=== PATIENT | female | born 1990 | race Caucasian/White ===

== ENCOUNTER 2016-12-27 09:39 | Inpatient (IN) | payer BC, OTHER ==
[~2016-12-27] VITALS: Ht 152.4 cm; Wt 53.5 kg
[2016-12-27] MEDS ORDERED: ALBU2.5V38 IH (09:59)
[2016-12-27] MEDS ORDERED: SEVE800T8 PO (09:59)
[2016-12-27] MEDS ORDERED: DIPH25CA6 PO (09:59)
[2016-12-27] MEDS ORDERED: NIFE30TA89 PO (09:59)
[2016-12-27] MEDS ORDERED: LEVE500T9 PO (09:59)
[2016-12-27] MEDS ORDERED: FOLI1TAB16 PO (09:59)
[2016-12-27] MEDS ORDERED: FERR-58 PO (09:59)
[2016-12-27] MEDS ORDERED: RISP0.253 PO ×2 (09:59)
[2016-12-27] MEDS ORDERED: FOLI0.8T2 PO (09:59)
--- NOTE | 2016-12-27 10:00 | NUR ---
SECURITY SYSTEM TECHNICIANGELATIN POWDER MIXER NOTE RECEIVED REPORT FROM LEXIE MOBLEY FROM [facility]. PATIENT WAS IN ROOM 501-1 AND WILL BE ADMITTING TO 324-1 FOR SEPSIS. PATIENT IS ALERT x1. NON-VERBAL. NO FACIAL GRIMACING NOTED FOR PAIN. NO SOB OR DISTRESS NOTED. ON 3L/MIN OF OXYGEN VIA NASAL CANNULA O2 SAT AT 96% TOLERATING WELL. PATIENT HAS LEFT CHEST WALL HD CATH. HAD HEMODIALYSIS DONE YESTERDAY 12/26/16 HAD 1.6 OUTPUT. IV ON RIGHT SHOULDER, TO BE TAKEN OUT PER RN. NEW ONE TO BE INSERTED. SKIN ISSUES PRESENT AND DOCUMENTED. SCAB ON LEFT UPPER ARM, SACRAL REDNESS, RIGHT KNEE SCAB. WOULD CONSULT PUT IN. Z-GUARD ORDERED. RENAL DIET. NO BELONGINGS AT BEDSIDE. AWAITING FOR MD ORDERS, MED RECON TO BE DONE. WILL CONTINUE TO MONITOR PATIENT THROUGHOUT SHIFT
[2016-12-27] MEDS ORDERED: CEFT1VIA6 IM (10:01)
[2016-12-27 11:16] VITALS: BP 144/72
--- NOTE | 2016-12-27 12:24 | NUR ---
PORCELAIN MIXER NOTE IV INSERTED ON LEFT FOREARM 20G. INTACT AND PATENT, FLUSHES WELL.
[2016-12-27 16:00] VITALS: BP 143/105
--- NOTE | 2016-12-27 18:00 | NUR ---
DIRECTOR OF MARKETING COMMUNICATIONS NOTE ROCEPHIN NOT AVAILABLE TO GIVE AT THIS TIME. PHARMACY AWARE. WILL GIVE WHEN RECEIVED.
[2016-12-27 18:08] LABS: CALCIUM, SERUM 8.9 mg/dL (8.5-10.1)
[2016-12-27 18:10] LABS: BASOPHILS % (AUTO) 0.5 % (0.0-2.0); EOSINOPHILS # (AUTO) 0.4 /CMM (0.0-0.7); HEMATOCRIT 30 % (33-45); HEMOGLOBIN 10.2 g/dL (11.5-14.8); LYMPHOCYTES # (AUTO) 0.9 /CMM (0.8-4.8); MEAN CORPUSCULAR HEMOGLOBIN 31 PG (26.0-33.0); MEAN CORPUSCULAR HGB CONC 34 g/dl (31.0-36.0); MEAN CORPUSCULAR VOLUME 92 fL (82-100); MONOCYTES # (AUTO) 0.4 /CMM (0.1-1.30); MONOCYTES % (AUTO) 7.1 % (2.0-12.0); NEUTROPHILS # (AUTO) 4.1 /CMM (1.8-8.9); NEUTROPHILS % (AUTO) 70.4 % (43.0-81.0); PLATELET COUNT (AUTO) 107 /CMM (150-450); RDW COEFFICIENT OF VARIATION 15.7 (11.5-15.0); RED BLOOD CELL COUNT(AUTO) 3.28 MIL/uL (4.0-5.2); WHITE BLOOD COUNT (AUTO) 5.9 K/uL (4.3-11.0)
--- NOTE | 2016-12-27 18:42 | NUR ---
RADIOLOGY CLERK CLOSING NOTE PATIENT IS ALERT x1. NO FACIAL GRIMACING NOTED FOR PAIN. NO SOB OR DISTRESS NOTED. ON 3L/MIN OF OXYGEN VIA NASAL CANNULA. ALL DUE MEDICATIONS GIVEN ORDERED, IV ROCEPHIN NOT AVAILABLE AT THIS TIME. PHARMACY AWARE. NON-VERBAL. IV INTACT AND PATENT ON LEFT FOREARM. WOUND CONSULT TO BE DONE. AM LABS TOMORROW 12/28. ABLE TO FOLLOW COMMANDS. WILL ENDORSE TO HOT DOG VENDOR NURSE FOR [place]
[2016-12-27 20:00] VITALS: BP 156/98
--- NOTE | 2016-12-27 21:00 | NUR ---
PT ALERT, GARBLED SPEECH, UNABLE TO VERBALIZED NEEDS, BUT FOLLOW SIMPLE INSTRUCTION. PT IS MENTALLY CHALLENGE, IV LINE INTACT AND STARTED ANTIBIOTICS.SKIN INTACT EXCEPT FOR A SCAB TO RIGHT KNEE. BED ALARM ACTIVATED AT ALL TIMES.SINUS TACHY @ 96-110'S.KEPT ON OXYGEN 3 LITERS, NO DISTRESS,NO COUGHING BUT DROOLS THIN WHITE SECRETIONS, ASPIRATION OBSERVED, WILL CONTINUE TO MONITOR,KEPT ATTENDED AT ALL TIMES,VSS,AFEBRILE.
[2016-12-28 00:10] VITALS: BP 147/102
[2016-12-28 04:38] VITALS: BP 148/96
--- NOTE | 2016-12-28 05:40 | NUR ---
0520= PT BED ALARM WENT OFF, TECHNICAL SUPPORT ANALYSTBURAK Monk WENT TO ROOM TO RESPOND THE BED ALARM AND FOUND PT FALLING FROM THE BED WITH HER FACE ON THE FLOOR BUT THE LEGS STILL ON THE BED.NOTED THAT THE HEAD OF BED WAS ON HIGH FOWLERS. PT HAS MENTAL DELAY AND UNABLE TO VERBALIZE , PT JUST SMILE AND EVEN SAY IN GARBLED SPEECH "GOOD MORNING", NO BRUISING NOTED,NO BLEEDING IN THE HEAD,NO NEURO CHANGES BP 142/94 HR 106 SPO2 94% 2 LITERS.SINUS TACHY @ 122 DURING THE FALL EVENT. PAGED EPIC GROUP AND SPOKE TO DR. STAN CALDERÓN, NO ORDERS GIVEN EXCEPT TO CONTINUE TO MONITOR, PT IS TRANSFERED TO ROOM 311 WHERE THERE IS A SITTER AVAILABLE TO WATCH THE PT.TRY TO CALL MOTHER PAULA @ [phone] BUT VOICEMAIL IS FULL AND UNABLE TO LEAVE A MESSAGE.WILL CONTINUE TO MONITOR.
[2016-12-28 07:40] LABS: BASOPHILS # (AUTO) 0.1 /CMM (0.0-0.2); BASOPHILS % (AUTO) 1.2 % (0.0-2.0); EOSINOPHILS # (AUTO) 0.3 /CMM (0.0-0.7); EOSINOPHILS % (AUTO) 5.2 % (0.0-6.0); HEMATOCRIT 28 % (33-45); HEMOGLOBIN 9.4 g/dL (11.5-14.8); LYMPHOCYTES # (AUTO) 0.8 /CMM (0.8-4.8); LYMPHOCYTES % (AUTO) 15.3 % (20.0-44.0); MEAN CORPUSCULAR HEMOGLOBIN 31 PG (26.0-33.0); MEAN CORPUSCULAR HGB CONC 34 g/dl (31.0-36.0); MEAN CORPUSCULAR VOLUME 92 fL (82-100); MONOCYTES # (AUTO) 0.3 /CMM (0.1-1.30); MONOCYTES % (AUTO) 5.6 % (2.0-12.0); NEUTROPHILS # (AUTO) 3.7 /CMM (1.8-8.9); NEUTROPHILS % (AUTO) 72.7 % (43.0-81.0); PLATELET COUNT (AUTO) 122 /CMM (150-450); RDW COEFFICIENT OF VARIATION 15.4 (11.5-15.0); RED BLOOD CELL COUNT(AUTO) 3.03 MIL/uL (4.0-5.2); WHITE BLOOD COUNT (AUTO) 5.1 K/uL (4.3-11.0)
--- NOTE | 2016-12-28 07:45 | NUR ---
PROMOTIONAL DEMONSTRATOR: INITIAL NOTE RECEIVED PT A/OX1. NON VERBAL. USES FACIAL GRIMACING TO COMMUNICATE. NO PAIN NOTED. NO SOB NOTED. 3L NC SATING AT 96%. ANURIC AND USES DIAPER. BEDREST. HL #20 ON L FA, NO IV FLUIDS RUNNING. L CHEST PERMECATH. IS ON DIALYSIS AT THE MOMENT. SITE CLEAR AND PATENT. NO REDNESS, NO BLEEDING NOTED. RESTING COMFORTABLY IN BED. CALL LIGHT WITHIN REACH.
[2016-12-28 08:00] VITALS: BP 121/70
[2016-12-28 08:03] LABS: CALCIUM, SERUM 8.4 mg/dL (8.5-10.1); CREATININE 3.9 mg/dL (0.6-1.3); POTASSIUM 3.5 mmol/L (3.5-5.1)
--- NOTE | 2016-12-28 09:58 | NUR ---
DIALYSIS OUTPUT PER TECT IS 2L. VS STABLE. BP 139/93, PULSE 98, O2 100% ON 3 L NC.
--- NOTE | 2016-12-28 18:20 | NUR ---
MED SURGE RN: CLOSING NOTE PT A/OX1. USES GARBLED SPEECH. TELE D/C PER MD ORDER. TOOK ALL MEDICATIONS ON TIME. NO ADVERSE REACTIONS NOTED. NO PAIN NOTED. NO SOB NOTED. ON 2 L NC SATING AT 95%. BED REST BUT INDEPENDENT WITH BED MOBILITY. UNABLE TO AMBULATE WITH OUT ASSISTANCE. DIALYSIS OUTPUT AT 2L. TOLERATED WELL. HL ON L FA #20. AND L CHEST PERAMACTH. SITE CLEAR, NO REDNESS, AND DRESSING INTACT. NO IV FLUIDS RUNNING. WILL BE D/C TOMORROW IF CLEAR. RESTING COMFORTABLY IN BED. CALL LIGHT WITHIN REACH.
--- NOTE | 2016-12-28 19:30 | NUR ---
RN INITIAL NOTES: RECEIVED RPEORT FORM STEPHEN RN, PT IN BED, AWAKE, A/O X1 WITH GARBLED SPEECH, PT S/P HD TODAY WITH 2L OUTPUT. PT ON 3L VIA NC RESPIRATION EVEN AND UNLABORED, PER REPORT PT FELL LAST NIGHT, NOW WITH 1:1 SITTER AT BED SIDE. PT HAS LEFT FA IV ACCESS PATENT AND FLUSHING WELL, ON HL. BLE KEPT OFFLOADED. SAFETY PRECAUTIONS FOR FALL INITIATED CALL LIGHT IN REACH, WILL CONTINUE TO MONITOR
[2016-12-28 20:00] VITALS: BP 147/98
--- NOTE | 2016-12-28 21:50 | NUR ---
RN NOTES: ALECIA MEDS GIVEN ORDERED. NO ASPIRATION NOTED, PT ABLE TO SWALLOW WHOLE PILL WITH APPLE SAUCE.
--- NOTE | 2016-12-29 01:54 | NUR ---
RN NOTES: SEEN PT SLEEPING COMFORTABLY, NOT IN ANY DISTRESS, NO FACIAL GRIMACE NOTED, WILL CONTINUE TO MONITOR
--- NOTE | 2016-12-29 05:00 | NUR ---
rn notes: pt c/o pain but cannot state where the pain is, pt has no prn order for pain, contacted epic questioned documents examiner awaiting for call back
--- NOTE | 2016-12-29 05:30 | NUR ---
rn notes: placed second call for epic, pt still c/o pain, awaiting for call back
[2016-12-29 06:24] LABS: BASOPHILS % (AUTO) 0.6 % (0.0-2.0); EOSINOPHILS # (AUTO) 0.5 /CMM (0.0-0.7); EOSINOPHILS % (AUTO) 8.7 % (0.0-6.0); HEMATOCRIT 30 % (33-45); HEMOGLOBIN 10.2 g/dL (11.5-14.8); LYMPHOCYTES # (AUTO) 1.2 /CMM (0.8-4.8); LYMPHOCYTES % (AUTO) 22.4 % (20.0-44.0); MEAN CORPUSCULAR HEMOGLOBIN 32 PG (26.0-33.0); MEAN CORPUSCULAR HGB CONC 34 g/dl (31.0-36.0); MEAN CORPUSCULAR VOLUME 93 fL (82-100); MONOCYTES # (AUTO) 0.4 /CMM (0.1-1.30); MONOCYTES % (AUTO) 8.4 % (2.0-12.0); NEUTROPHILS # (AUTO) 3.2 /CMM (1.8-8.9); NEUTROPHILS % (AUTO) 59.9 % (43.0-81.0); PLATELET COUNT (AUTO) 152 /CMM (150-450); RDW COEFFICIENT OF VARIATION 15.1 (11.5-15.0); RED BLOOD CELL COUNT(AUTO) 3.23 MIL/uL (4.0-5.2); WHITE BLOOD COUNT (AUTO) 5.3 K/uL (4.3-11.0)
[2016-12-29 06:34] LABS: CALCIUM, SERUM 9.2 mg/dL (8.5-10.1); CREATININE 6.5 mg/dL (0.6-1.3); POTASSIUM 4.2 mmol/L (3.5-5.1)
--- NOTE | 2016-12-29 06:47 | NUR ---
RN CLOSING NOTES: PT IN BED, REMAINS A/O X1, WITH GARBLED SPEECH. ON 3L VIA NC RESPIRATION EVEN AND UNLABORED. LEFT FA IV ACCESS REMAINS PATENT AND FLUSHING WELL, ON HL. COVERED WITH ARM SLEEVE FOR PROTECTION. PT FOR POSSIBLE DC TODAY, EXIT CARE COMPLETED. VS REMAINS STABLE, NEEDS ATTENDED. SAFETY PRECAUTIONS FOR FALL REMAINS ENGAGED, CALL LIGHT IN REACH, WILL ENDORSE TO DAY RN FOR [place].
[2016-12-29 08:16] VITALS: BP 137/97
[2016-12-29 09:47] VITALS: BP 137/97
--- NOTE | 2016-12-29 15:45 | NUR ---
PT DISCHARGED HOME WITH MOTHER PAULA RN; ALL WRITTEN INSTRUCTIONS GIVEN AND EXPLAINED TO PATIENT'S MOTHER WHO IS HER MAIN CAREGIVER. VERBALIZED UNDERSTANDING. IV REMOVED; PT CLEANED AND FRESH CLOTHES GIVEN. TAKEN SAFELY OUT OF HOSPITAL VIA W/C.
[2017-01-01 07:42] LABS: BASOPHILS % (AUTO) 0.3 % (0.0-2.0); EOSINOPHILS # (AUTO) 0.3 /CMM (0.0-0.7); EOSINOPHILS % (AUTO) 5.3 % (0.0-6.0); HEMATOCRIT 26 % (33-45); HEMOGLOBIN 8.9 g/dL (11.5-14.8); LYMPHOCYTES # (AUTO) 1.2 /CMM (0.8-4.8); LYMPHOCYTES % (AUTO) 18.1 % (20.0-44.0); MEAN CORPUSCULAR HEMOGLOBIN 32 PG (26.0-33.0); MEAN CORPUSCULAR HGB CONC 35 g/dl (31.0-36.0); MEAN CORPUSCULAR VOLUME 93 fL (82-100); MONOCYTES # (AUTO) 0.4 /CMM (0.1-1.30); MONOCYTES % (AUTO) 6.5 % (2.0-12.0); NEUTROPHILS # (AUTO) 4.5 /CMM (1.8-8.9); NEUTROPHILS % (AUTO) 69.8 % (43.0-81.0); PLATELET COUNT (AUTO) 218 /CMM (150-450); RDW COEFFICIENT OF VARIATION 14.8 (11.5-15.0); RED BLOOD CELL COUNT(AUTO) 2.78 MIL/uL (4.0-5.2); WHITE BLOOD COUNT (AUTO) 6.5 K/uL (4.3-11.0)
[2017-01-01 07:56] LABS: CALCIUM, SERUM 8.5 mg/dL (8.5-10.1); CREATININE 6.7 mg/dL (0.6-1.3); PHOSPHORUS 5.6 mg/dL (2.5-4.9); POTASSIUM 4.7 mmol/L (3.5-5.1)
== END 2016-12-29 15:50 | disposition home or self-care (01) | DRG 193 ==
LOC: MED 09:39 → TELE 10:10 → MED 12-28 09:00
PROVIDERS: ADMIT Internal Medicine; ATTEND Internal Medicine
DX: J15.9 Unspecified bacterial pneumonia (principal); N18.6 End stage renal disease; G80.9 Cerebral palsy, unspecified; D64.9 Anemia, unspecified; F29 Unspecified psychosis not due to a substance or known physiological condition; F79 Unspecified intellectual disabilities; G40.909 Epilepsy, unspecified, not intractable, without status epilepticus; Z99.2 Dependence on renal dialysis
CPT/HCPCS: 36415; 80048-TC; 83735-TC; 84100-TC; 85025-TC; 87081-TC; 90935-TC; J0696; J7050; J7060; Q0163; Z7610

== ENCOUNTER 2016-12-30 11:15 | Inpatient (IN) | payer BC, OTHER ==
[~2016-12-30] VITALS: Ht 152.4 cm; Wt 54.4 kg
[~2016-12-30 11:15] MED LIST: ALBU2.5V38 IH; CEFT1VIA6 IM; DIPH25CA6 PO; FERR-58 PO; FOLI1TAB16 PO; LEVE500T9 PO; NIFE30TA89 PO; RISP0.253 PO; SEVE800T8 PO
--- NOTE | 2016-12-30 11:20 | NUR ---
PT BIB FRIEND TO ER BED 14. HERE FOR COUGH AND CONGESTION. WAS D/C YESTERDAY W/ DIAGNOSIS OF PNEUMONIA. PER FAMILY, PT IS STILL WEAK AND FEELS LIKE COUGH IS NOT RESOLVING. GOWNED AND PLACED ON MONITOR. HERRERA SAMUEL.
--- NOTE | 2016-12-30 11:43 | NUR ---
DR SILVERIO AT BEDSIDE FOR EVAL.
[2016-12-30] MEDS ORDERED: IV NS 0.9% 500 ML BAG IV ONE (12:00)
--- NOTE | 2016-12-30 12:00 | NUR ---
IV LINE STARTED BLOOD DRAWN AND SENT TO LAB.
[2016-12-30 12:10] LABS: BASOPHILS % (AUTO) 0.3 % (0.0-2.0); EOSINOPHILS # (AUTO) 0.3 /CMM (0.0-0.7); EOSINOPHILS % (AUTO) 3.4 % (0.0-6.0); HEMATOCRIT 30 % (33-45); HEMOGLOBIN 10.2 g/dL (11.5-14.8); LYMPHOCYTES % (AUTO) 9.9 % (20.0-44.0); MEAN CORPUSCULAR HEMOGLOBIN 31 PG (26.0-33.0); MEAN CORPUSCULAR HGB CONC 34 g/dl (31.0-36.0); MEAN CORPUSCULAR VOLUME 93 fL (82-100); MONOCYTES # (AUTO) 0.6 /CMM (0.1-1.30); MONOCYTES % (AUTO) 6.7 % (2.0-12.0); NEUTROPHILS # (AUTO) 7.7 /CMM (1.8-8.9); NEUTROPHILS % (AUTO) 79.7 % (43.0-81.0); PLATELET COUNT (AUTO) 216 /CMM (150-450); RDW COEFFICIENT OF VARIATION 14.6 (11.5-15.0); RED BLOOD CELL COUNT(AUTO) 3.26 MIL/uL (4.0-5.2); WHITE BLOOD COUNT (AUTO) 9.6 K/uL (4.3-11.0)
--- NOTE | 2016-12-30 12:11 | NUR ---
RADIOLOGY AT BEDSIDE FOR CHEST XRAY.
[2016-12-30 12:20] LABS: CALCIUM, SERUM 9.5 mg/dL (8.5-10.1); POTASSIUM 4.2 mmol/L (3.5-5.1)
[2016-12-30 12:27] LABS: CREATININE 8.5 mg/dL (0.6-1.3)
--- NOTE | 2016-12-30 13:36 | NUR ---
DR GRIFFIN AT BEDSIDE FOR EVAL.
--- NOTE | 2016-12-30 13:55 | NUR ---
CALLED [facility] [employer] APPLICATION SUPPORT SPECIALIST FOR BEDS , SHE SAID SHE WOULD CALL US BACK.
--- NOTE | 2016-12-30 14:11 | NUR ---
REPORT GIVEN TO TRAY. PT AWAOIITING TRANSFER TO FLOOR.
[2016-12-30] MEDS ORDERED: IV NS 0.9% 1,000 ML IV PRN (14:21)
[2016-12-30] MEDS ORDERED: ENOXAPARIN SODIUM 40 MG/0.4 ML DISP.SYRIN SQ SCH (14:30)
[2016-12-30] MEDS ORDERED: MAGNESIUM HYDROXIDE 30 ML UDC PO PRN (14:30)
[2016-12-30] MEDS ORDERED: ONDANSETRON HCL/PF 4 MG/2 ML VIAL IVP PRN (14:30)
[2016-12-30] MEDS: NIFEdipine XL (30MG) 30 MG TAB PO SCH (14:30)
[2016-12-30] MEDS ORDERED: MAG HYDROX/AL HYDROX/SIMETH 30 ML UDC PO PRN (14:30)
[2016-12-30 14:50] VITALS: BP 103/36
--- NOTE | 2016-12-30 15:00 | NUR ---
MS RN NOTES RECEIVED PATIENT ALERT ORIENTEDX2. NO SOB OR ACUTE DISTRESS NOTED. PATIENT IN BED RESTING. NOTED WITH COUGH. PATIENT AND FAMILY ORIENTED TO ROOM AND FLOOR. BED IN LOW LOCKED POSITION. CALL LIGHT WITHIN REACH. PERIPHERAL IV ON RIGHT AC INTACT, PATENT. SUBCLAVIAN ON LEFT UPPER CHEST INTACT. WILL CONTINUE TO MONITOR CLOSELY.
[2016-12-30] MEDS: FERROUS SULFATE (325 MG) 325 MG/TAB TABLET PO SCH (15:38)
[2016-12-30] MEDS: risperiDONE 0.25 MG TABLET PO SCH ×2 (15:39→18:00)
[2016-12-30] MEDS: diphenhydrAMINE HCL 25 MG CAPSULE PO SCH ×2 (15:39→21:19)
[2016-12-30] MEDS: FOLIC ACID 1 MG TABLET PO SCH (15:42)
[2016-12-30] MEDS ORDERED: FLU VACC QS 2017-18(36MOS+)/PF 0.5 ML DISP.SYRIN IM ONE ×2 (16:00→19:00)
--- NOTE | 2016-12-30 18:15 | NUR ---
MS RN NOTES PATIENT IN BED RESTING NO SOB OR ACUTE DISTRESS NOTED. ALL DUE MEDICATIONS ADMINISTERED. ALL NEEDS MET BED IN LOW LOCKED POSITION. HD CATH INTACT, PERIPHERAL IV INTACT PATENT WILL ENDORSE [place].
--- NOTE | 2016-12-30 18:30 | NUR ---
MS RN NOTES RISPERDAL NONE ADMINISTERED DUE TO GIVING 0.5MG DOSE 2 HOURS AGO.
[2016-12-30] MEDS: SEVELAMER CARBONATE 800 MG TABLET PO SCH (18:43)
--- NOTE | 2016-12-30 20:19 | NUR ---
MS RUSTY INITIAL NOTES' SEEN PT IN BED AWAKE AND ALERT WATCHING TV AT THIS TIME. CALMED AND QUIET FOLLOWED SIMPLE INSTRUCTION, HEPLOCK PATENT AND INTACT, HEMO DIALYSIS CATH ON LEFT UPPER CHEST WALL WITH DRESSING DRY . DENIES ANY PAIN OR ANY DISCOMFORT. NO SOB NOTED. RE-ORIENTED WHERE SHE AT . SITTER AT THE BEDSIDE FOR SAFETY. WILL CONTINUE MONITORING.
[2016-12-30] MEDS: LEVETIRACETAM (250 MG) 250 MG TABLET PO SCH (20:52)
[2016-12-30] MEDS: HEPARIN SODIUM, PORCINE 5000 UNITS/1 ML VIAL SQ SCH (20:56)
[2016-12-30] MEDS: Z GUARD REMEDY 2 OZ OINT TP PRN (21:00)
[2016-12-31] MEDS: Z GUARD REMEDY 2 OZ OINT TP PRN ×4 (01:30→21:56)
[2016-12-31] MEDS: ZOLPIDEM TARTRATE 5 MG TABLET PO PRN (01:39)
[2016-12-31] MEDS: ALBUTEROL FS 2.5 MG/3 ML VIAL.NEB IH PRN ×2 (05:38→22:39)
[2016-12-31 07:20] LABS: BASOPHILS % (AUTO) 0.3 % (0.0-2.0); EOSINOPHILS # (AUTO) 0.5 /CMM (0.0-0.7); EOSINOPHILS % (AUTO) 5.9 % (0.0-6.0); HEMATOCRIT 26 % (33-45); LYMPHOCYTES # (AUTO) 1.1 /CMM (0.8-4.8); LYMPHOCYTES % (AUTO) 14.2 % (20.0-44.0); MEAN CORPUSCULAR HEMOGLOBIN 32 PG (26.0-33.0); MEAN CORPUSCULAR HGB CONC 35 g/dl (31.0-36.0); MEAN CORPUSCULAR VOLUME 92 fL (82-100); MONOCYTES # (AUTO) 0.4 /CMM (0.1-1.30); MONOCYTES % (AUTO) 5.7 % (2.0-12.0); NEUTROPHILS # (AUTO) 5.8 /CMM (1.8-8.9); NEUTROPHILS % (AUTO) 73.9 % (43.0-81.0); PLATELET COUNT (AUTO) 205 /CMM (150-450); RDW COEFFICIENT OF VARIATION 14.6 (11.5-15.0); RED BLOOD CELL COUNT(AUTO) 2.85 MIL/uL (4.0-5.2); WHITE BLOOD COUNT (AUTO) 7.9 K/uL (4.3-11.0)
--- NOTE | 2016-12-31 07:30 | NUR ---
ORGAN TEACHER/CLOSING NOTES PT RESTING COMFORTABLY AFTER MORNING CARE DONE. ALL DUE MEDS GIVEN AND STABLE RAMY THE NIGHT. SLEPT WELL AFTER AMBIEN GIVEN ORDERED. NO SIGNS OF ANY ACUTE DISTRESS NOTED. WITH O2 AT 2 LITERS VIA NC. NO SOB NOTED AT THIS TIME. COUGH ONCE IN A WHILE. ON ASPIRATION PRECAUTION. SITTER AT THE BEDSIDE FOR SAFETY. ENDORSE TO AM NURSE WINTER FOR CONTINUITY OF CARE.
[2016-12-31 07:39] LABS: ALBUMIN 2.7 g/dL (3.4-5.0); BILIRUBIN,TOTAL 0.4 mg/dL (0.2-1.0); MAGNESIUM 2.4 mg/dL (1.8-2.4); PHOSPHORUS 6.4 mg/dL (2.5-4.9)
--- NOTE | 2016-12-31 07:40 | NUR ---
RECEIVED PT. IN AM ,QUIET,APPEARS COMFORTABLE.NO DISTRESS.SITTER AT BEDSIDE.IV IN PLACE.ALERT AND ORIENTED X1.
[2016-12-31 07:41] LABS: CREATININE 9.4 mg/dL (0.6-1.3)
[2016-12-31 07:46] LABS: THYROID STIMULATING HORMONE 5.639 uIU/mL (0.358-3.74)
[2016-12-31 08:00] VITALS: BP 159/89
[2016-12-31] MEDS: Z GUARD REMEDY 2 OZ OINT TP SCH (09:00)
--- NOTE | 2016-12-31 09:20 | NUR ---
ACTIVASE INSTILLED IN TO DIALYSIS CATH THIS AM WAS REPORTED CATH NOT FUNCTIONAL.THIS PROCEDURE PERFORMED BY MEDICAL OFFICE SUPERVISOR.
[2016-12-31] MEDS ORDERED: ALTEPLASE CATHFLO 2 MG/VIAL IV ONE (09:30)
[2016-12-31] MEDS: SEVELAMER CARBONATE 800 MG TABLET PO SCH ×3 (10:01→18:00)
[2016-12-31] MEDS: NIFEdipine XL (30MG) 30 MG TAB PO SCH (10:02)
[2016-12-31] MEDS: FOLIC ACID 1 MG TABLET PO SCH (10:02)
[2016-12-31] MEDS: FERROUS SULFATE (325 MG) 325 MG/TAB TABLET PO SCH (10:03)
[2016-12-31] MEDS: risperiDONE 0.25 MG TABLET PO SCH ×2 (10:03→18:00)
[2016-12-31] MEDS: LEVETIRACETAM (250 MG) 250 MG TABLET PO SCH ×2 (10:03→20:45)
[2016-12-31] MEDS: HYDROCODONE/APAP 5/325MG 1 EACH TABLET PO PRN (12:42)
--- NOTE | 2016-12-31 12:42 | NUR ---
LOOKING UNCOMFORTABLE-GIVEN ELZACO.
[2016-12-31] MEDS: HEPARIN SODIUM, PORCINE 5000 UNITS/1 ML VIAL SQ SCH ×2 (12:44→20:45)
[2016-12-31] MEDS ORDERED: LORAZEPAM 1 MG TABLET PO PRN (13:30)
--- NOTE | 2016-12-31 14:30 | NUR ---
DIALYSIS DONE,PRIOR TO THIS CONSENT RECEIVED FROM PT,S MOTHER.PT. TOLERATED DIALYSIS WELL.
[2016-12-31 16:00] VITALS: BP 134/72
--- NOTE | 2016-12-31 18:00 | NUR ---
PT. RAFAEL DIGGS. MEDS HELD.
[2016-12-31 20:00] VITALS: BP 133/89
--- NOTE | 2016-12-31 20:00 | NUR ---
MS RUSTY INITIAL NOTES GOT REPORT FROM AM NURSE MOY /RN AND CHECKED PT , SEEN IN BED AWAKE AND LIKED GETTING ANXIOUS AND SHE ALREADY PULLED OUT HER IV LINE , SPOKE TO HER AND FOUND OUT SHE WANTS SOMETHING TO EAT AND SHE SO HUNGRY. WARM UP HER DINNER AND SERVED IT TO HER . REPOSITION HER ON SITTING POSITION FOR ASPIRATION PRECAUTION. SITTER AT THE BEDSIDE FOR SAFETY AND ALSO HELPED THE PT TO EAT. WILL CONTINUE TO MONITOR.
[2016-12-31] MEDS: diphenhydrAMINE HCL 25 MG CAPSULE PO SCH (21:51)
[2017-01-01] MEDS: ZOLPIDEM TARTRATE 5 MG TABLET PO PRN (01:55)
[2017-01-01] MEDS: HYDROCODONE/APAP 5/325MG 1 EACH TABLET PO PRN (05:19)
[2017-01-01] MEDS: Z GUARD REMEDY 2 OZ OINT TP SCH (05:20)
[2017-01-01] MEDS: ALBUTEROL FS 2.5 MG/3 ML VIAL.NEB IH PRN ×2 (05:39→20:27)
--- NOTE | 2017-01-01 07:45 | NUR ---
TRUST ADMINISTRATOR/CLOSING NOTES PT RESTING AT THIS TIME AFTER NORCO TABLET GIVEN ORDERED AND FOR PT COMFORT TOO. SITTER AT THE BEDSIDE FOR SAFETY. STABLE RAMY THE NIGHT AND SLEPT WELL AFTER AMBIEN GIVEN. ALL DUE MEDS GIVEN AND ALL NEEDS MET. ENDORSE TO AM NURSE FOR CONTINUITY OF CARE.
[2017-01-01 08:00] VITALS: BP_SYST 135; BP_DIAS 60; BP_DIAS 99
[2017-01-01] MEDS: SEVELAMER CARBONATE 800 MG TABLET PO SCH ×3 (08:00→18:10)
--- NOTE | 2017-01-01 08:30 | NUR ---
MS RN RECEIVED ON BED, AWAKE,NOT IN ANY FORM OF DISTRESS, RESPIRATIONS EVEN AND UNLABORED,NO SOB NOTED, W/ SITTER AT BEDSIDE FOR SAFETY,ALL NEEDS ATTENDED.
--- NOTE | 2017-01-01 09:00 | NUR ---
MS LEXIE BREAKFAST SERVED,DUE HELD DUE TO PATIENT WILL HAVE HD TODAY, WILL GIVE LATER.
--- NOTE | 2017-01-01 12:00 | NUR ---
MS RN DUE MEDS HELD, PATIENT ON HD AT THIS TIME.
[2017-01-01] MEDS: FOLIC ACID 1 MG TABLET PO SCH (13:06)
[2017-01-01] MEDS: LEVETIRACETAM (250 MG) 250 MG TABLET PO SCH ×2 (13:07→21:27)
[2017-01-01] MEDS: risperiDONE 0.25 MG TABLET PO SCH ×2 (13:07→18:11)
[2017-01-01] MEDS: FERROUS SULFATE (325 MG) 325 MG/TAB TABLET PO SCH (13:07)
[2017-01-01] MEDS: NIFEdipine XL (30MG) 30 MG TAB PO SCH (13:08)
[2017-01-01] MEDS: HEPARIN SODIUM, PORCINE 5000 UNITS/1 ML VIAL SQ SCH ×2 (13:12→21:28)
--- NOTE | 2017-01-01 14:00 | NUR ---
MS SAFETY DEPOSIT BOXES CUSTODIAN DONE ,NO OUTPUT, ONLY CLEANING.
[2017-01-01 16:00] VITALS: BP 131/89
[2017-01-01] MEDS: LORAZEPAM 1 MG TABLET PO PRN (16:22)
--- NOTE | 2017-01-01 18:45 | NUR ---
MS RN ON BED, DUE MEDS GIVEN, NO DISTRESS NOTED.
--- NOTE | 2017-01-01 19:28 | NUR ---
MS RUSTY INITIAL NOTES RECEIVED REPORT FROM AM NURSE MALCOLM, SEEN PT SLEEPING AT THIS TIME, BREATHING EVEN AND UNLABORED, NOT IN ANY ACUTE DISTRESS NOTED. SKIN WARM AND DRY TO TOUCH, HEPLOCK STILL PATENT AND INTACT ON HER RIGHT HAND COVERED WITH KERLIX AND AV SHUNT ON HER LEFT UPPER CHEST DRESSING DRY AND INTACT. PT HAD DIALYSIS TODAY. KEPT HER WARM AND COMFORTABLE AT ALL TIMES. SITTER AT THE BEDSIDE FOR SAFETY. WILL CONTINUE TO MONITOR.
[2017-01-01 20:00] VITALS: BP 141/100
[2017-01-01] MEDS: diphenhydrAMINE HCL 25 MG CAPSULE PO SCH (21:27)
--- NOTE | 2017-01-01 22:00 | NUR ---
TRAILER TANK TRUCK DRIVER/NOTES NIGHT CARE BED ADMINISTERED BY SITTER , ROUTINE MEDS GIVEN ORDERED WITH SOME SNACKS. PT TOLERATED WELL. NO ASPIRATION NOTED. WILL CONTINUE TO MONITOR. PLACE CALL LIGHT AT REACH.
--- NOTE | 2017-01-02 | NUR ---
DOUGH MIXING MACHINE OPERATOR/NOTES PT SLEEPING AT THIS TIME WITHOUT ANY ACUTE DISCOMFORT NOTED, RESPIRATION EVEN AND NON-LABORED. KEPT HER WARM AND COMFORTABLE AT ALL TIME. SITTER AT THE BEDSIDE FOR SAFETY. WILL CONTINUE TO MONITOR.
[2017-01-02] MEDS: LORAZEPAM 1 MG TABLET PO PRN ×2 (04:07→19:57)
--- NOTE | 2017-01-02 04:07 | NUR ---
MANAGER OF PURCHASING/NOTES PT WOKE UP AND STARTED GETTING ANXIOUS, ATIVAN PO GIVEN WITH APPLE SAUCE ORDERED. PT ATE WELL , KEPT HER SAFE AT ALL TIMES. SITTER AT THE BEDSIDE.
--- NOTE | 2017-01-02 07:30 | NUR ---
MS RN AM NOTES RECEIVED IN BED, AWAKE,NOT IN ANY FORM OF DISTRESS, RESPIRATIONS EVEN AND UNLABORED,NO SOB NOTED, W/ SITTER AT BEDSIDE FOR SAFETY,RT HAND G24 IN PLACE FLUSHES WELL, SITE CLEAR, AV SHUNT KARLOS CHEST, SITE CLEAR, SEE NURSING FLOWSHEET FOR SKIN ISSUES. CALL LIGHT WITHIN REACG, SAFETY MEASURES IN PLACE. WILL CONT TO MONITOR,
--- NOTE | 2017-01-02 07:51 | NUR ---
MICA SPLITTER/CLOSING NOTES PT REMAINS SLEEPING AFTER ATIVAN GIVEN. NO SIGNS OF ANY ACUTE DISTRESS NOTED. RESPIRATION EVEN AND NON-LABORED, NO SIGNS OF ANY DISCOMFORT NOTED RAMY THE NIGHT. MORNING CARE DONE AND ALL DUE MEDS GIVEN . KEPT HER WARM AND COMFORTABLE AT ALL TIMES. ENDORSE TO AM NURSE FOR CONTINUITY OF CARE.
[2017-01-02 08:00] VITALS: BP 167/100
[2017-01-02] MEDS: FERROUS SULFATE (325 MG) 325 MG/TAB TABLET PO SCH (09:03)
[2017-01-02] MEDS: risperiDONE 0.25 MG TABLET PO SCH ×2 (09:03→17:22)
[2017-01-02] MEDS: FOLIC ACID 1 MG TABLET PO SCH (09:03)
[2017-01-02] MEDS: SEVELAMER CARBONATE 800 MG TABLET PO SCH ×3 (09:03→17:22)
[2017-01-02] MEDS: NIFEdipine XL (30MG) 30 MG TAB PO SCH (09:04)
[2017-01-02] MEDS: LEVETIRACETAM (250 MG) 250 MG TABLET PO SCH ×2 (09:10→21:34)
[2017-01-02] MEDS: HEPARIN SODIUM, PORCINE 5000 UNITS/1 ML VIAL SQ SCH ×2 (09:11→21:36)
[2017-01-02] MEDS: Z GUARD REMEDY 2 OZ OINT TP SCH (09:20)
--- NOTE | 2017-01-02 09:30 | NUR ---
MS RN NOTES ADMINISTERED DUE MEDS
[2017-01-02] MEDS: ALBUTEROL FS 2.5 MG/3 ML VIAL.NEB IH PRN (09:56)
[2017-01-02 10:02] LABS: BASOPHILS % (AUTO) 0.3 % (0.0-2.0); EOSINOPHILS # (AUTO) 0.3 /CMM (0.0-0.7); EOSINOPHILS % (AUTO) 3.9 % (0.0-6.0); HEMATOCRIT 26 % (33-45); HEMOGLOBIN 8.9 g/dL (11.5-14.8); LYMPHOCYTES % (AUTO) 14.6 % (20.0-44.0); MEAN CORPUSCULAR HEMOGLOBIN 31 PG (26.0-33.0); MEAN CORPUSCULAR HGB CONC 34 g/dl (31.0-36.0); MEAN CORPUSCULAR VOLUME 92 fL (82-100); MONOCYTES # (AUTO) 0.4 /CMM (0.1-1.30); MONOCYTES % (AUTO) 5.5 % (2.0-12.0); NEUTROPHILS # (AUTO) 5.1 /CMM (1.8-8.9); NEUTROPHILS % (AUTO) 75.7 % (43.0-81.0); PLATELET COUNT (AUTO) 245 /CMM (150-450); RDW COEFFICIENT OF VARIATION 14.3 (11.5-15.0); RED BLOOD CELL COUNT(AUTO) 2.86 MIL/uL (4.0-5.2); WHITE BLOOD COUNT (AUTO) 6.8 K/uL (4.3-11.0)
[2017-01-02 10:20] LABS: CALCIUM, SERUM 8.8 mg/dL (8.5-10.1); CREATININE 6.9 mg/dL (0.6-1.3); POTASSIUM 5.3 mmol/L (3.5-5.1)
[2017-01-02 16:00] VITALS: BP 143/96
[2017-01-02 18:00] VITALS: BP 143/96
--- NOTE | 2017-01-02 18:36 | NUR ---
MS RN CLOSING NOTES PT RESTING IN BED, AWAKE,NOT IN ANY FORM OF DISTRESS, RESPIRATIONS EVEN AND UNLABORED,NO SOB NOTED, W/ SITTER AT BEDSIDE FOR SAFETY,RT HAND G24 IN PLACE FLUSHES WELL, SITE CLEAR, AV SHUNT KARLOS CHEST, SITE CLEAR, PM CARE DONE, CALL LIGHT WITHIN REACH, SAFETY MEASURES IN PLACE. ALL NEEDS MET, NO OTHER SIGNIFICANT CHANGE IN CONDITION. WILL ENDORSE TO NEXT SHIFT FOR [place]. FOR HD TOMORROW PER DR. CHERELLE REYNOSO.
[2017-01-02 19:00] VITALS: BP 155/93
--- NOTE | 2017-01-02 19:53 | NUR ---
MS RN NOTES RECEIVED PATIENT LAYING IN BED, A & O X 2. SEEMS TO BE ANXIOUS, WILL GIVE PRN MEDS. ON 1:1 SITTER AT BEDSIDE FOR SAFETY. NO C/O PAIN, NO ACUTE DISTRESS NOTED. RESP EVEN & NON LABORED. IV ACCESS TO RIGHT HAND, HL. INTACT PATENT. AV SHUNT TO LEFT UPPER CHEST, DRESSING INTACT. BED IN LOW LOCKED POSITION. CALL LIGHT WITHIN REACH. MONITORING CLOSELY.
--- NOTE | 2017-01-02 19:57 | NUR ---
MS RN NOTES PATIENT NOTED TO BE ANXIOUS/RESTLESS IN BED. PRN ATIVAN GIVEN ORDERED. WILL REASSESS FOR EFFECTIVENESS. ON 1:1 SITTER AT BEDSIDE.
[2017-01-02] MEDS: diphenhydrAMINE HCL 25 MG CAPSULE PO SCH (21:34)
--- NOTE | 2017-01-02 22:00 | NUR ---
MS RN NOTES REASSESSED THE PATIENT FOR RESTLESSNESS, NOTED TO BE SLEEPING COMFORTABLY AT THIS TIME. SITTER AT BEDSIDE. MONITORING CLOSELY.
[2017-01-03] VITALS (15 sets, daily range): BP systolic 134–171; BP diastolic 55–110
[2017-01-03] MEDS: ALBUTEROL FS 2.5 MG/3 ML VIAL.NEB IH PRN ×3 (03:03→22:31)
--- NOTE | 2017-01-03 03:20 | NUR ---
MS RN NOTES PATIENT SLEEPING INTERMITTENTLY, ON O2 AT 2LPM VIA NC. HAD WHEEZING WHILE SLEEPING. RT MADE AWARE & PRN BREATHING TREATMENT WAS GIVEN ORDERED BY MD. WILL CONTINUE TO OBSERVE FOR ANY CHANGES.
[2017-01-03 06:23] LABS: BASOPHILS % (AUTO) 0.4 % (0.0-2.0); EOSINOPHILS # (AUTO) 0.3 /CMM (0.0-0.7); EOSINOPHILS % (AUTO) 3.3 % (0.0-6.0); HEMATOCRIT 23 % (33-45); HEMOGLOBIN 7.8 g/dL (11.5-14.8); LYMPHOCYTES # (AUTO) 1.1 /CMM (0.8-4.8); LYMPHOCYTES % (AUTO) 13.4 % (20.0-44.0); MEAN CORPUSCULAR HEMOGLOBIN 32 PG (26.0-33.0); MEAN CORPUSCULAR HGB CONC 34 g/dl (31.0-36.0); MEAN CORPUSCULAR VOLUME 93 fL (82-100); MONOCYTES # (AUTO) 0.4 /CMM (0.1-1.30); MONOCYTES % (AUTO) 5.2 % (2.0-12.0); NEUTROPHILS # (AUTO) 6.3 /CMM (1.8-8.9); NEUTROPHILS % (AUTO) 77.7 % (43.0-81.0); PLATELET COUNT (AUTO) 208 /CMM (150-450); RDW COEFFICIENT OF VARIATION 14.6 (11.5-15.0); RED BLOOD CELL COUNT(AUTO) 2.45 MIL/uL (4.0-5.2); WHITE BLOOD COUNT (AUTO) 8.1 K/uL (4.3-11.0)
[2017-01-03 06:42] LABS: CALCIUM, SERUM 8.8 mg/dL (8.5-10.1); MAGNESIUM 2.2 mg/dL (1.8-2.4); PHOSPHORUS 6.4 mg/dL (2.5-4.9); POTASSIUM 5.6 mmol/L (3.5-5.1)
--- NOTE | 2017-01-03 06:51 | NUR ---
MS RN NOTES PATIENT SLEPT INTERMITTENTLY. NO C/O PAIN, NO SOB, NO ACUTE DISTRESS OR DISCOMFORT NOTED. ON O2 AT 2LPM VIA NC. HOB ELEVATED FOR EASY BREATHING & COMFORT. IV ACCESS TO RIGHT HAND, AV SHUNT TO LEFT UPPER CHEST, INTACT PATENT. REPOSITIONED. KEPT CLEAN & DRY. ON BEDREST. 1:1 SITTER AT BEDSIDE FOR SAFETY. HD DUE TODAY. BE DIN LOW LOCKED POSITION. CALL LIGHT WITHIN REACH. WILL ENDORSE TO AM SHIFT.
--- NOTE | 2017-01-03 07:30 | NUR ---
RN NOTES PT.IS WITH 1:1 SITTER.
--- NOTE | 2017-01-03 07:30 | NUR ---
RN OPENING NOTES RECEIVE PT. IN BED A&OX3. BREATHING UNLABORED AND EVENLY ON ROOM AIR. NO S/S OF ACUTE DISTRESS. IV FLUIDS RUNNING AT 100 ML/HR. BED IS IN LOWEST LOCKED POSITION, 2 SIDE RAILS UP, AND INSTRUCTED PT. TO USE CALL LIGHT WITHIN REACH. WILL CONTINUE TO ASSESS AND MONITOR.
--- NOTE | 2017-01-03 07:30 | NUR ---
RN OPENING NOTES RECEIVE PT. IN BED A&OX2. BREATHING UNLABORED AND EVENLY ON OXYGEN AT 2L/MIN. NO S/S OF ACUTE DISTRESS. IV ACCESS ON RIGHT HAND , AND UPPER LEFT CHEST AV SHUNT. PT. IS RECEIVING HEMODIALYSIS. BED IS IN LOWEST LOCKED POSITION, 2 SIDE RAILS UP, AND INSTRUCTED PT. TO USE CALL LIGHT WITHIN REACH. WILL CONTINUE TO ASSESS AND MONITOR.
[2017-01-03 07:46] LABS: CREATININE 8.1 mg/dL (0.6-1.3)
[2017-01-03] MEDS: SEVELAMER CARBONATE 800 MG TABLET PO SCH ×3 (08:00→17:55)
--- NOTE | 2017-01-03 08:30 | NUR ---
RN NOTES CRITICAL LAB CALLED PT. CREATININE LEVEL IS 8.1, NOTIFIED ROSA MARIA CALL NP IS AWARE. PT. IS RECEIVING HEMODIALYSIS TODAY.
[2017-01-03] MEDS: HEPARIN SODIUM, PORCINE 5000 UNITS/1 ML VIAL SQ SCH ×2 (09:00→21:00)
[2017-01-03] MEDS: NIFEdipine XL (30MG) 30 MG TAB PO SCH (09:00)
[2017-01-03] MEDS: Z GUARD REMEDY 2 OZ OINT TP SCH (09:00)
[2017-01-03] MEDS: risperiDONE 0.25 MG TABLET PO SCH ×2 (12:23→17:55)
[2017-01-03] MEDS: FOLIC ACID 1 MG TABLET PO SCH (12:23)
[2017-01-03] MEDS: FERROUS SULFATE (325 MG) 325 MG/TAB TABLET PO SCH (12:24)
[2017-01-03] MEDS: LEVETIRACETAM (250 MG) 250 MG TABLET PO SCH ×2 (12:24→22:01)
--- NOTE | 2017-01-03 12:40 | NUR ---
RN NOTES PT. COULD NOT RECEIVE PROCARDIA, AND RENAGEL DUE TO MEDICATION COULD NOT BE CRUSHED OR CHEWED. PT. CAN TAKE PO MEDS ONLY CRUSHED.
--- NOTE | 2017-01-03 13:45 | NUR ---
RN NOTES RENAGEL MEDICATION COULD NOT BE ADMINISTERED DUE TO MEDICATION CANNOT BE CRUSHED.
[2017-01-03] MEDS: LORAZEPAM 1 MG TABLET PO PRN (15:55)
--- NOTE | 2017-01-03 16:45 | NUR ---
RN NOTES PT. STARTED HAVING A NOSE BLEED. AFTER 15 MINUTES NOSE BLEED WAS STOPPED WITH GAUZE.
[2017-01-03] MEDS: CLONIDINE HCL 0.1 MG TABLET GT PRN (17:55)
--- NOTE | 2017-01-03 18:45 | NUR ---
RN NOTES BLOOD TRANSFUSION VITAL SIGNS TEMP. 97.5 F, BP 140/103, PULSE 97, PULSE OXYGEN 95%.
--- NOTE | 2017-01-03 19:00 | NUR ---
RN NOTES BLOOD TRANSFUSION VITAL SIGNS TEMP. 98.4 F, BP 135/102, PULSE 93, PULSE OXYGEN 96%.
--- NOTE | 2017-01-03 19:30 | NUR ---
RN CLOSING NOTES PT. IN BED A&OX1-2. BREATHING UNLABORED AND EVENLY ON OXYGEN 2L/MIN ON COOL AEROSOL. NO S/S OF ACUTE DISTRESS. BLOOD TRANSFUSION RUNNING AT 120ML/HR. BED IS IN LOWEST LOCKED POSITION, 2 SIDE RAILS UP, AND CALL LIGHT WITHIN REACH. WILL ENDORSE REPORT TO NURSE.
--- NOTE | 2017-01-03 19:40 | NUR ---
RN INITIAL NOTES: RECEIVED REPORT FROM MARYANA OWEN,. PT IN BED, SLEEPING, A/O X1, ON 2L VIA NC RESPIRATION EVEN AND UNLABORED, PT HAS RIGHT FOOT IV ACCESS PATENT AND FLUSHING WELL, WITH ONGOING BLOOD TRANSFUSION RUNNING AT 120ML/HR, DECIDED TO DECREASE IT BECAUSE ITS TOO FAST PT IS A DIALYSIS PT, PRBC NOW RUNNING AT 80ML/HR, SITTER AT BED SIDE, PT CONNECTED TO VS MACHINE WITH VS CHECK [id number], BLOOD TRANSFUSION STARTED AT 1830 PER DAY RN REPORT. SAFETY PRECAUTIONS FOR FALL INITIATED CALL LIGHT IN REACH, WILL CONTINUE TO MONITOR.
--- NOTE | 2017-01-03 19:45 | NUR ---
RN NOTES: UNABLE TO DOCUMENT ON BLOOD TRANSFUSION PAGE/SHEET IT APPEARS "MAXIMUM DOCUMENTATION REACHED", DECIDED TO DOCUMENT THE VITAL SIGNS IN THE VITAL SIGN LOG (SHORT FORM). BLOOD TRANSFUSION PROTOCOL FOLLOWED, [id number] X1HR, [id number] X1HR, THEN [id number] X 1HR.
--- NOTE | 2017-01-03 19:45 | NUR ---
RN NOTES: UNABLE TO DOCUMENT ON BLOOD TRANSFUSION PAGE/SHEET IT APPERAS
--- NOTE | 2017-01-03 20:00 | NUR ---
RN NOTES: PT S/P HD TODAY WITH 1L OUTPUT
--- NOTE | 2017-01-03 20:35 | NUR ---
RN NOTES: STILL MONITORING PT FOR ANY BLOOD TRANSFUSION REACTION, INFORMED ENGRAVER SEALS REGARDING FLUCTUATIONS IN BP IT GOES HIGHER THEN GO BACK TO NORMAL RANGE, PT RECEIVED CATAPRESS AT 1755. WILL MONITOR PT'S VS.
--- NOTE | 2017-01-03 20:59 | NUR ---
RN NOTES: CONTACTED [facility], SPOKE WITH RICHARD BACA, INFORMED ABOUT PT RECEIVING BLOOD TRANSFUSION AT THIS TIME, PT WILL HAVE HEPARIN SQ 5000UNITS, H/H 7.11/19, INFORMED REGARDING PT HAVING NOSEBLEEDING DURING BREATHING TREATMENT, PER MD TO HOLD THE DOSE OF HEPARIN FOR TONIGHT, ALSO INFORMED THAT PT'S BLOOD PRESSURE FLUCTUATING, GOING 146/106 HIGHEST THEN WILL GO BACK DOWN TO NORMAL RANGE, PER RICHARD BACA TO CONTINUE MONITORING THE PT FOR NOW,
--- NOTE | 2017-01-03 21:30 | NUR ---
rn notes: BLOOD TRANSFUSION COMPLETED AT THIS TIME, IVF NS NOW RUNNING. VS TAKEN AND RECORDED, WILL CONTINEU MONITORING PT FOR ANY POST BLOOD TRANSFUSION REACTION.
--- NOTE | 2017-01-03 22:00 | NUR ---
RN NOTES: CONTACTED RT REGARDING DEEP SUCTIONING, PT NOTED TO HAVE SECRETIONS SEEMS TO BE UNABLE TO COUGH, SUCTIONED PT ORALLY BUT NOTHING OBTAINED, CALLED RT COLE
[2017-01-03] MEDS: diphenhydrAMINE HCL 25 MG CAPSULE PO SCH (22:01)
--- NOTE | 2017-01-03 22:30 | NUR ---
RN NOTES: RT COLE CAME TO DO DEEP SUCTIONING, ABLE TO SUCTION BLOOD SECRETIONS MODERATE IN AMOUNT, ALSO PER RT SINCE PT IS A MOUTH BREATHER IT WOULD BE BEST TO PLACE THE PT ON 6L VENTI MASK PT GETS SUFFOCATED ON 3L MASK OXYGEN,
--- NOTE | 2017-01-03 22:52 | NUR ---
RN NOTES: DUE MEDS GIVEN, STRICT ASPIRATION PRECAUTION FOLLOWED, PLACED PT ON HIGH MCKEON'S POSITION, CRUSHED MEDS WITH APPLE SAUCE, THEN PUT THICKENER ON PT'S JUICE, ABLE TO TAKE MEDICINE, NO ASPIRATION NOTED, WILL CONTINUE TO MONITOR
[2017-01-04] VITALS (8 sets, daily range): BP systolic 112–161; BP diastolic 70–104
[2017-01-04] MEDS: CLONIDINE HCL 0.1 MG TABLET GT PRN (04:06)
--- NOTE | 2017-01-04 04:07 | NUR ---
PRN CATAPRES: NOTED PT BP 161/104 HR 94 RR20 SPO2 97%, PRN CATAPRES 0.1 MG TAB, MED WAS CRUSHED AND PLACED IN APPLE SAUCE, ADMINISTERED TO THE PT AT THIS TIME, WILL CONTINUE TO MONITOR AND REASSESS
--- NOTE | 2017-01-04 06:47 | NUR ---
RN CLOSING NOTES: PT IN BED, AWAKE, REMAINS A/O X1, ON VENTI MASK 6L FIO2 28%, ON CONTINUOUS PULSE OX SATING 96%,NO FACIAL GRIMACE NOTED, APPEARS CALM AND COMFORTABLE, SITTER AT BED SIDE, RIGHT FOOT IV ACCESS REMAINS PATENT AND FLUSHING WELL, ON HL. BLE KEPT OFFLOADED. NO NOSE BLEEDING NOTED. HOWEVER WHEN DOING DEEP SUCTIONING, OBTAINED MODERATE AMOUNT OF BLOOD Y SECRETIONS, PT STILL UNABLE TO COUGH OUT PHLEGM. VS REMAINS STABLE, NEEDS ATTENDED, SAFETY PRECAUTIONS FOR FALL REMAINS ENGAGED, CALL LIGHT IN REACH, WILL ENDORSE TO DAY RN FOR [place].
--- NOTE | 2017-01-04 07:41 | NUR ---
MS/RN OPENING NOTE PATIENT RECEIVED IN BED IN STABLE CONDITION. A/O X 1. NOTED WITH VENTURI MASK WITH 6L AND FIO2 OF 28%. TOLERATING WELL. NO SIGNS OF ACUTE DISTRESS. NO COMPLAIN OF PAIN OR DISCOMFORT. ALL NEEDS ATTENDED TO. CALL LIGHT WITHIN REACH. WILL CONTINUE TO MONITOR TO ENSURE SAFETY.
[2017-01-04 07:59] LABS: BASOPHILS % (AUTO) 0.6 % (0.0-2.0); EOSINOPHILS # (AUTO) 0.3 /CMM (0.0-0.7); HEMATOCRIT 24 % (33-45); HEMOGLOBIN 8.1 g/dL (11.5-14.8); LYMPHOCYTES # (AUTO) 1.1 /CMM (0.8-4.8); LYMPHOCYTES % (AUTO) 16.8 % (20.0-44.0); MEAN CORPUSCULAR HEMOGLOBIN 31 PG (26.0-33.0); MEAN CORPUSCULAR HGB CONC 34 g/dl (31.0-36.0); MEAN CORPUSCULAR VOLUME 92 fL (82-100); MONOCYTES # (AUTO) 0.4 /CMM (0.1-1.30); MONOCYTES % (AUTO) 5.7 % (2.0-12.0); NEUTROPHILS # (AUTO) 4.9 /CMM (1.8-8.9); NEUTROPHILS % (AUTO) 72.9 % (43.0-81.0); PLATELET COUNT (AUTO) 202 /CMM (150-450); RDW COEFFICIENT OF VARIATION 14.4 (11.5-15.0); RED BLOOD CELL COUNT(AUTO) 2.61 MIL/uL (4.0-5.2); WHITE BLOOD COUNT (AUTO) 6.8 K/uL (4.3-11.0)
[2017-01-04] MEDS: SEVELAMER CARBONATE 0.8 GM POWD.PACK PO SCH ×2 (08:00→13:00)
[2017-01-04 08:09] LABS: CALCIUM, SERUM 8.5 mg/dL (8.5-10.1); POTASSIUM 5.6 mmol/L (3.5-5.1)
[2017-01-04 08:26] LABS: CREATININE 7.8 mg/dL (0.6-1.3)
[2017-01-04] MEDS: risperiDONE 0.25 MG TABLET PO SCH ×2 (08:51→17:38)
[2017-01-04] MEDS: LEVETIRACETAM (250 MG) 250 MG TABLET PO SCH ×2 (08:52→20:45)
[2017-01-04] MEDS: NIFEdipine XL (30MG) 30 MG TAB PO SCH (08:52)
[2017-01-04] MEDS: FERROUS SULFATE (325 MG) 325 MG/TAB TABLET PO SCH (08:52)
[2017-01-04] MEDS: FOLIC ACID 1 MG TABLET PO SCH (08:52)
[2017-01-04] MEDS: HEPARIN SODIUM, PORCINE 5000 UNITS/1 ML VIAL SQ SCH ×2 (08:53→20:47)
[2017-01-04] MEDS: ALBUTEROL FS 2.5 MG/3 ML VIAL.NEB IH PRN (08:56)
[2017-01-04] MEDS: Z GUARD REMEDY 2 OZ OINT TP SCH (09:14)
[2017-01-04] MEDS ORDERED: AZITHROMYCIN 500 MG in IV D5W 250 ML IV SCH (12:00)
[2017-01-04] MEDS ORDERED: SODIUM POLYSTYRENE SULFONATE 15 G/60 ML BOTTLE PO ONE (12:00)
[2017-01-04] MEDS ORDERED: HEPARIN SODIUM, PORCINE 1000 UNIT/1 ML VIAL IV ONE (13:00)
[2017-01-04] MEDS ORDERED: HEPARIN SODIUM, PORCINE 5000 UNITS/1 ML VIAL IV ONE (13:00)
[2017-01-04] MEDS ORDERED: HEPARIN SODIUM,PORCINE/PF 50 UNIT/5 ML DISP.SYRIN IV ONE (13:00)
[2017-01-04] MEDS ORDERED: HEPARIN-LOCK FLUSH PORCINE PF 100 UNITS/1 ML (10 ML)DISP.SYRIN IV ONE (13:00)
--- NOTE | 2017-01-04 13:29 | NUR ---
/RN RIGHT SIDE FEMORAL CATHETER PLACEMENT RIGHT SIDE FEMORAL HEMODIALYSIS CATHETER PLACEMENT DONE BY DR PEGUREO AT BEDSIDE. TOLERATED WELL. NO S/S OF BLEEDING NOTED. NO S/S OF PAIN OR DISCOMFORT AT THIS TIME. SITE KEPT CLEAN AND DRY AND COVERED WITH DRESSING. Addendum: 01/04/17 at 1345 by CRYSTAL ALMEIDA RN LEFT SIDE FEMORAL HEMODIALYSIS CATHETER NOT RIGHT SIDE.
[2017-01-04 14:16] LABS: INR 1.1 (0.87-1.13); PROTHROMBIN TIME 11.4 SECS (9.5-12.7)
[2017-01-04] MEDS: ALBUTEROL FS 2.5 MG/3 ML VIAL.NEB IH SCH ×2 (14:52→19:41)
[2017-01-04] MEDS: ACETYLCYSTEINE 10% SOLN 400 MG/4 ML VIAL NEB SCH (14:52)
[2017-01-04] MEDS: ACETAMINOPHEN 325 MG TABLET PO PRN (17:38)
--- NOTE | 2017-01-04 18:12 | NUR ---
MS/RN CLOSING NOTE PATIENT IN BED IN STABLE CONDITION. A/O X 1. NO SIGNS OF ACUTE DISTRESS. NO COMPLAIN OF PAIN OR DISCOMFORT. S/P HEMODIALYSIS, 2.5L OUT TOLERATED WELL. CONSENT FOR PLACEMENT OF DIALYSIS CATHETER TO RIGHT CHEST, LEFT VS RIGHT ARTERIAL AND VENOUS OBTAINED BY PAULA (MOTHER). ALL NEEDS ATTENDED TO. CALL LIGHT WITHIN REACH. SITTER AT BEDSIDE. WILL ENDORSE TO NEXT SHIFT FOR CONTINUITY OF CARE.
--- NOTE | 2017-01-04 19:20 | NUR ---
MS/JEWISH HISTORY PROFESSOR; RECEIVED PT 'S REPORTS FROM THE DAY SHIFT RN . AT THIS TIME. PT IN BED AWAKE TALKING BUT UNABLE TO UNDERSTAND. DAY SHIFT SITTER AT THE BEDSIDE. BREATHING NON LABORED. WITH O2 2L NC ON. WITH OLD HD CATH ON MINDI BUT NOT WORKING PER DAY SHIFT REPORT. PT WITH NEW HD CATH ON LT FEMORAL AREA INTACT. WITH HL ON RT FOOT INTACT AND PATENT. HOB AT 35 DEGREES. BED ON LOWER POSITION AND LOCKED FOR SAFETY. SIDE RAILS ARE UP FOR SAFETY. CALL LIGHT WITHIN REACH. PT IS CONFUSED TOO. WILL CONTINUE TO MONITOR. JEWELRY DEPARTMENT SUPERVISOR SITTER PRESENT.
--- NOTE | 2017-01-04 19:45 | NUR ---
MS/FELT HAT STEAMER; NOTED PT INCONTINENT OF BM SMALL AMOUNT SOFT GRAYISH/ BROWN . PERINEAL CARE DONE AND DIAPER CHANGED . REPOSITIONED.
--- NOTE | 2017-01-04 20:00 | NUR ---
MS?SEPHORA PRODUCT CONSULTANT; RT ADMINISTERED BREATHING TREATMENT TO THIS PT.
--- NOTE | 2017-01-04 20:45 | NUR ---
MS/CAR DETAILER; NOTED PT HAD ANOTHER BM MOD AMOUNT GRAYISH/BROWN. DEANNA ANAL CARE DONE AND DIAPER CHANGED. TURNED AND REPOSITIONED FOR COMFORT. Z GUARD CREAM APPLIED TO SACRAL REDNESS. STOOL SPECIMEN OBTAINED AND SENT TO LAB.
[2017-01-04] MEDS: diphenhydrAMINE HCL 25 MG CAPSULE PO SCH (21:27)
--- NOTE | 2017-01-04 21:30 | NUR ---
MS/CASH ACCOUNTANT; NOTED PT HAS BEEN SCRATCHING HER ABDOMEN.
--- NOTE | 2017-01-04 22:00 | NUR ---
MS/LVVN; AWAKE TURNED AND REPOSTIOED TO LT SIDE WITH PILLOWS SUPPORT TO HER BACK AND HEELS .
--- NOTE | 2017-01-04 22:15 | NUR ---
MS/FURNACE FIRER; PT AT THIS TIME SLEEPING REMAINED ON O2 2L NC ON. WILL CONTINUE TO MONITOR.
--- NOTE | 2017-01-04 23:00 | NUR ---
MS/INK PRINTER; STILL SLEEPING AT THIS TIME. WITH O2 3L NC ON. CONTINUE TO MONITOR.
[2017-01-05] VITALS (11 sets, daily range): BP systolic 118–143; BP diastolic 64–92
--- NOTE | 2017-01-05 | NUR ---
MS/CCIE; PT WOKE UP TURNED AND REPOSITIONED TO HER RT SIDE. HD CATH ON MINDI AND LT FEMORAL INTACT. RT CAME AND ADMINISTERED PT WITH BREATHING TREATMENT.
[2017-01-05] MEDS: ACETYLCYSTEINE 10% SOLN 400 MG/4 ML VIAL NEB SCH ×4 (00:02→23:05)
[2017-01-05] MEDS: ALBUTEROL FS 2.5 MG/3 ML VIAL.NEB IH SCH ×7 (00:02→23:05)
--- NOTE | 2017-01-05 01:20 | NUR ---
MS/CAMERA MAKER; PT WOKE UP C/O PAIN GENERALIZED. REPOSITIONED . TEMP. 98.4 ORALLY BP LA 129/89 MD 101 R 22 O2 SAT ON 2L NC 98 %.
[2017-01-05] MEDS: ACETAMINOPHEN 325 MG TABLET PO PRN (01:34)
--- NOTE | 2017-01-05 01:35 | NUR ---
MS/PLY BANDER; TYLENOL 650 MG PO Q6 PRN GIVEN CRUSHED WITH APPLE SAUCE ASPIRATION PRECAUTION OBSERVED. HOB ELEVATED AT ALL TIMES. WILL CONTINUE TO MONITOR.
--- NOTE | 2017-01-05 02:00 | NUR ---
MS/WELDER FITTER APPRENTICE; SLEEPING AT THIS TIME. HOB ELEVATED AT ALL TIMES 35 DEGREES.
--- NOTE | 2017-01-05 04:35 | NUR ---
MS/MANAGEMENT LIAISON; PT WOKE UP VERY AGITATED NOISY AND TRYING TO HIT ME WITH HER HANDS. BP ON LA 127/65 T 98.3 P 98 R 22 O2 SAT ON O2 2L NC 100 %. ATIVAN 1M PO Q8 PRN FOR AGITATION CRUSHED WITH APPLE SAUCE GIVEN ORDERED. WILL CONTINUE TO MONITOR.
[2017-01-05] MEDS: LORAZEPAM 1 MG TABLET PO PRN ×3 (04:38→22:00)
--- NOTE | 2017-01-05 05:45 | NUR ---
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 WITH O2 2L NC ON.
--- NOTE | 2017-01-05 06:31 | NUR ---
MS/LAP POLISHER; SLEPT FAIRLY LAST NIGHT. SUCTIONED ORALLY WITH SOME WHITISH SECRETIONS. MORNING CARE RENDERED. OLD HD ON MINDI AND NEW ONE WHICH IS TEMPORARY ON LT FEMORAL INTACT. COUGHING NOTED . HL ON RT FOOT INTACT. SITTER PRESENT IN THE ROOM AT ALL TIMES. PT BIT CALM AT THIS TIME. WILL CONTINUE TO MONITOR. WILL ENDORSE TO THE DAY SHIFT NURSE.
--- NOTE | 2017-01-05 07:25 | NUR ---
MS/RN OPENING NOTE PATIENT RECEIVED IN BED IN STABLE CONDITION. A/O X 1. NO SIGNS OF ACUTE DISTRESS. NO COMPLAIN OF PAIN OR DISCOMFORT. HOB ELEVATED FOR ASPIRATION PRECAUTION. ALL NEEDS ATTENDED TO. CALL LIGHT WITHIN REACH. SITTER AT BEDSIDE. WILL CONTINUE TO MONITOR TO ENSURE SAFETY.
[2017-01-05 08:13] LABS: BASOPHILS % (AUTO) 0.5 % (0.0-2.0); EOSINOPHILS # (AUTO) 0.2 /CMM (0.0-0.7); HEMATOCRIT 23 % (33-45); HEMOGLOBIN 7.7 g/dL (11.5-14.8); LYMPHOCYTES # (AUTO) 1.1 /CMM (0.8-4.8); MEAN CORPUSCULAR HEMOGLOBIN 32 PG (26.0-33.0); MEAN CORPUSCULAR HGB CONC 34 g/dl (31.0-36.0); MEAN CORPUSCULAR VOLUME 93 fL (82-100); MONOCYTES # (AUTO) 0.4 /CMM (0.1-1.30); MONOCYTES % (AUTO) 8.4 % (2.0-12.0); NEUTROPHILS # (AUTO) 3.3 /CMM (1.8-8.9); NEUTROPHILS % (AUTO) 66.1 % (43.0-81.0); PLATELET COUNT (AUTO) 191 /CMM (150-450); RDW COEFFICIENT OF VARIATION 14.3 (11.5-15.0); RED BLOOD CELL COUNT(AUTO) 2.43 MIL/uL (4.0-5.2); WHITE BLOOD COUNT (AUTO) 5.1 K/uL (4.3-11.0)
[2017-01-05 08:25] LABS: CALCIUM, SERUM 8.3 mg/dL (8.5-10.1); CREATININE 4.9 mg/dL (0.6-1.3); POTASSIUM 3.9 mmol/L (3.5-5.1)
[2017-01-05] MEDS: NIFEdipine XL (30MG) 30 MG TAB PO SCH (09:12)
[2017-01-05] MEDS: LEVETIRACETAM (250 MG) 250 MG TABLET PO SCH ×2 (09:12→20:58)
[2017-01-05] MEDS: FERROUS SULFATE (325 MG) 325 MG/TAB TABLET PO SCH (09:12)
[2017-01-05] MEDS: risperiDONE 0.25 MG TABLET PO SCH ×2 (09:12→17:32)
[2017-01-05] MEDS: FOLIC ACID 1 MG TABLET PO SCH (09:12)
[2017-01-05] MEDS: HEPARIN SODIUM, PORCINE 5000 UNITS/1 ML VIAL SQ SCH (09:13)
[2017-01-05] MEDS: Z GUARD REMEDY 2 OZ OINT TP SCH (09:14)
--- NOTE | 2017-01-05 11:20 | NUR ---
MS/RN SEEN BY ROSA MARIA CALL PATIENT SEEN BY ROSA MARIA CALL DECKHAND TUNA BOAT, ALSO MADE AWARE PATIENT BEING RESTLESS AND TRYING TO GET OUT OF BED WITH NEW ORDERS TO CHANGE ATIVAN 1MG PO FROM Q 8 HRS PRN TO Q 6 HRS PRN.
[2017-01-05] MEDS: AZITHROMYCIN 250 MG TABLET PO SCH (11:27)
--- NOTE | 2017-01-05 17:20 | NUR ---
MS/RN SEEN BY DR TORRE PATIENT SEEN BY DR TORRE WITH ORDERS TO TRANSFUSE 2 UNITS OF RBC. PATIENT CURRENTLY HAVING HEMODIALYSIS. PER MD TO TRANSFUSE WITH HD. CALLED BLOOD BANK AND MADE AWARE. IF NOT ABLE TO TRANSFUSE WITH HD BY THE TIME HD FINISHES. PLEASE TRANSFUSE WITHOUT HD. GIVE 1 UNIT, CHECK CBC AND IF NEEDED TRANSFUSE 1 UNIT EXTRA.
[2017-01-05] MEDS: PANTOPRAZOLE 40 MG VIAL IV SCH (17:32)
[2017-01-05] MEDS: SEVELAMER CARBONATE 0.8 GM POWD.PACK PO SCH (17:44)
--- NOTE | 2017-01-05 19:00 | NUR ---
MS/RN BLOOD TRANSFUSION SPOKE WITH KAREN FROM BLOOD BANK. PER KAREN THE BLOOD IS NOT READY YET AND SHE WILL GIVE A CALL WHEN ITS READY. WILL ENDORSE TO NEXT SHIFT.
--- NOTE | 2017-01-05 19:04 | NUR ---
MS/RN CLOSING NOTE PATIENT IN BED IN STABLE CONDITION. A/O X 1. NO SIGNS OF ACUTE DISTRESS. NO COMPLAIN OF PAIN OR DISCOMFORT. S/P HEMODIALYSIS. TOLERATED WELL. ALL NEEDS ATTENDED TO. CALL LIGHT WITHIN REACH. WILL ENDORSE TO NEXT SHIFT FOR CONTINUITY OF CARE AND WILL MAKE AWARE REGARDING BLOOD TRANSFUSION AND WILL RECEIVE CALL FROM KAREN FROM BLOOD BANK WHEN BLOOD IS READY TO BE PICKED UP.
--- NOTE | 2017-01-05 19:10 | NUR ---
MS/RN CONSENT EGD CONSENT FOR POSSIBLE EGD OBTAINED VIA TELEPHONE BY MOTHER PAULA [phone] WITNESSED BY MARYANA OWEN.
--- NOTE | 2017-01-05 19:35 | NUR ---
MS RN INITIAL NOTES PT IS IN BED AWAKE AND ALERT. SITTER AT BED SIDE. PT SOUNDS CONGESTED, CRACKLES IN LOWER LOBES. NO SOB NOTED. SPUTUM IN CANISTER IS DARK RED. BLOOD TRANSFUSION TO DONE. BED IS IN LOW AND LOCKED POSITION. WILL CONTINUE TO MONITOR PT
--- NOTE | 2017-01-05 20:23 | NUR ---
BLOOD TRANSFUSION BLOOD TRANSFUSION WAS BEGUN. INITIAL VITALS ARE BP- 118/79, P-102, T- 98.3, RR-18 WILL CONTINUE TO MONITOR PT
[2017-01-05] MEDS: diphenhydrAMINE HCL 25 MG CAPSULE PO SCH (22:00)
--- NOTE | 2017-01-05 22:00 | NUR ---
MS RN NOTES BENADRYL WAS HELD TO NOT MASK ANY S/S OF BLOOD TRANSFUSION REACTION.
--- NOTE | 2017-01-05 23:20 | NUR ---
BLOOD TRANSFUSION BLOOD TRANS WAS COMPLETED. VITALS WNL. H/H SCHEDULED FOR 19. WILL CONTINUE TO MONITOR
[2017-01-06] VITALS (7 sets, daily range): BP systolic 148–156; BP diastolic 65–93
--- NOTE | 2017-01-06 00:25 | NUR ---
H/H 9.07/26
[2017-01-06] MEDS: ACETYLCYSTEINE 10% SOLN 400 MG/4 ML VIAL NEB SCH ×5 (00:29→23:30)
[2017-01-06 00:50] LABS: HEMOGLOBIN 9.4 g/dL (11.5-14.8)
[2017-01-06] MEDS: ALBUTEROL FS 2.5 MG/3 ML VIAL.NEB IH SCH ×5 (03:20→20:10)
--- NOTE | 2017-01-06 06:40 | NUR ---
MS RN CLOSING NOTES PT IS IN BED RESTING WITH SITTER AT BEDSIDE. NO SIGNS OF SOB OR DISTRESS. ONE UNIT OF BLOOD TRANSFUSED. PT SLEPT THROUGHOUT THE NIGHT AFTER TRANSFUSION. SCHEDULED FOR HD CATH REPLACEMENT 01/06 @1130. WILL ENDORSE TO DAY SHIFT.
[2017-01-06 07:49] LABS: BASOPHILS % (AUTO) 0.4 % (0.0-2.0); EOSINOPHILS # (AUTO) 0.2 /CMM (0.0-0.7); EOSINOPHILS % (AUTO) 3.3 % (0.0-6.0); HEMATOCRIT 27 % (33-45); HEMOGLOBIN 9.2 g/dL (11.5-14.8); LYMPHOCYTES % (AUTO) 14.6 % (20.0-44.0); MEAN CORPUSCULAR HEMOGLOBIN 31 PG (26.0-33.0); MEAN CORPUSCULAR HGB CONC 34 g/dl (31.0-36.0); MEAN CORPUSCULAR VOLUME 92 fL (82-100); MONOCYTES # (AUTO) 0.5 /CMM (0.1-1.30); MONOCYTES % (AUTO) 7.4 % (2.0-12.0); NEUTROPHILS % (AUTO) 74.3 % (43.0-81.0); PLATELET COUNT (AUTO) 185 /CMM (150-450); RDW COEFFICIENT OF VARIATION 14.5 (11.5-15.0); RED BLOOD CELL COUNT(AUTO) 2.93 MIL/uL (4.0-5.2); WHITE BLOOD COUNT (AUTO) 6.8 K/uL (4.3-11.0)
[2017-01-06] MEDS: SEVELAMER CARBONATE 0.8 GM POWD.PACK PO SCH ×3 (08:00→18:00)
--- NOTE | 2017-01-06 08:00 | NUR ---
MS RN NOTES PATIENT IN BED RESTING WITH SITTER NO, SOB OR ACUTE DISTRESS NOTED. PATIENT NOTED CONGESTED AND COUGHING. PERIPHERAL IV ON RIGHT LEG, INTACT PATENT. BED IN LOW LOCKED POSITION. PATIENT NPO AWAITING SURGERY FOR HD SHUNT. WILL CONTINUE TO MONITOR CLOSELY .
[2017-01-06 08:04] LABS: ALBUMIN 2.7 g/dL (3.4-5.0); BILIRUBIN,TOTAL 0.6 mg/dL (0.2-1.0); CALCIUM, SERUM 8.6 mg/dL (8.5-10.1); CREATININE 6.4 mg/dL (0.6-1.3); MAGNESIUM 1.9 mg/dL (1.8-2.4); PHOSPHORUS 6.9 mg/dL (2.5-4.9); POTASSIUM 4.5 mmol/L (3.5-5.1)
[2017-01-06] MEDS: PANTOPRAZOLE 40 MG VIAL IV SCH ×2 (08:13→17:00)
[2017-01-06] MEDS: Z GUARD REMEDY 2 OZ OINT TP SCH (08:15)
[2017-01-06] MEDS: risperiDONE 0.25 MG TABLET PO SCH ×2 (09:00→18:00)
[2017-01-06] MEDS: FOLIC ACID 1 MG TABLET PO SCH (09:00)
[2017-01-06] MEDS: FERROUS SULFATE (325 MG) 325 MG/TAB TABLET PO SCH (09:00)
[2017-01-06] MEDS: NIFEdipine XL (30MG) 30 MG TAB PO SCH (09:00)
[2017-01-06] MEDS: LEVETIRACETAM (250 MG) 250 MG TABLET PO SCH ×2 (09:00→21:46)
[2017-01-06] MEDS: LORAZEPAM INJ 2 MG/ML VIAL IV PRN (09:12)
--- NOTE | 2017-01-06 10:00 | NUR ---
MS RN NOTES PATIENT SEEN AND EVALUATED BY ROSA MARIA CALL EVENT DECORATOR AND DESIGNER ORDERS NOTED AND CARRIED OUT.
[2017-01-06] MEDS: AZITHROMYCIN 250 MG TABLET PO SCH (12:00)
--- NOTE | 2017-01-06 14:15 | NUR ---
MS RN NOTES PATIENT TRANSFERRED TO OR IN STABLE CONDITION.
[2017-01-06] MEDS ORDERED: FENTANYL PF 100MCG/2ML AMPUL ONE (14:46)
[2017-01-06] MEDS ORDERED: LIDOCAINE 1% INJ 50 ML MDV IJ ONE (14:46)
[2017-01-06] MEDS ORDERED: HEPARIN SODIUM, PORCINE 1,000 UNIT/ML VIAL ONE ×3 (14:46→16:20)
[2017-01-06] MEDS ORDERED: CLINDAMYCIN 900 MG/6 ML VIAL ONE (15:28)
[2017-01-06] MEDS ORDERED: CELLULOSE,OXIDIZED 1 EA PACK MC ONE (17:32)
--- NOTE | 2017-01-06 18:30 | NUR ---
MS RN NOTES PATIENT RETURNED FROM OR IN STABLE CONDITION OPENS EYES TO NAME, VS WNL PATIENT ON OXYGEN AT 4 VIA NASAL CANNULA. WITH SURGICAL DRESSING ON RIGHT WRIST AND LEFT UPPER CHEST INTACT PATENT. PATIENT HAD A STAT CHEST XRAY IN OR AWAITING FOR RESULTS. WILL CONTINUE TO MONITOR CLOSELY.
--- NOTE | 2017-01-06 19:00 | NUR ---
MS RN NOTES PATIENT CHEST XRAY RESULTS NOTED, NOTIFIED PAGED ROSA MARIA CALL WITH RESULTS. ALSO INFORMED DR. DING OF RESULTS WAITING FOR CALL BACK FROM ROSA MARIA CALL.
--- NOTE | 2017-01-06 19:15 | NUR ---
MS RN NOTES PATIENT IN BED RESTING NO SOB OR ACUTE DISTRESS NOTED. VS 144/65 PULSE:87, RESPIRATION 20, TEMP: 97.4 HEART RATE 87. PATIENT SLEEPING EASILY AROUSABLE, OPENS EYES WHEN NAME IS CALLED. REPORT GIVEN TO SHRADDHA FOR [place]. AWAITING MDS CALL WITH FURTHER ORDERS.
--- NOTE | 2017-01-06 19:40 | NUR ---
MS RN NOTES RECEIVED RESTING COMFORTABLY ON BED,BREATHING NON LABORED,O2 SAT 97% ON 2L/NC.LEFT FOOT SALINE LOCK INTACT AND PATENT.S/P PLACEMENT OF PERMA CATH ON THE LEFT CHEST WALL.DRESSING INTACT AND DRY.S/P PLACEMENT ALSO RIGHT WRIST AV SHUNT,DRESSING INTACT AND DRY.WITH HD CATH VIA LEFT FEMORAL,WILL BE REMOVE TOMORROW.WITH ABNORMAL CHEST X-RAY RESULT,CAKE KNOCKER ROSA MARIA AWARE WITH ORDER FOR CT CHEST WITHOUT CONTRAST STAT,RADIOLOGY DEPT. AWARE.PATIENT WILL BE TRANSFER TO [facility] FOR FURTHER CARE AND MONITORING.
--- NOTE | 2017-01-06 19:45 | NUR ---
MS RN NOTES REPORT GIVEN TO NATHAN ARORA RN FOR [place].
--- NOTE | 2017-01-06 20:00 | NUR ---
NEED PT OR FAMILY CONSENT BEFORE CT SCAN.
--- NOTE | 2017-01-06 20:20 | NUR ---
MS RN NOTES SPOKE TO PAULA MOHAN,MOTHER,GIVEN CONSENT FOR CT CHEST WITH CONTRAST,WITNESSED BY GUERRA CHARGE NURSE
--- NOTE | 2017-01-06 20:45 | NUR ---
MS RN NOTES NEW SALINE LOCK PLACE ON LEFT AC #20 BY CHARGE NURSE MARI.
--- NOTE | 2017-01-06 20:50 | NUR ---
MS RN NOTES GOT ORDER FORM RICHARD MEJIA.PATIENT MAY HAVE HEMODIALYSIS IN THE MORNING TOMORROW.
[2017-01-06] MEDS ORDERED: IV NS 0.9% 250 ML IV ONE (20:52)
[2017-01-06] MEDS ORDERED: IOHEXOL-300 100 ML VIAL IV ONE (20:52)
--- NOTE | 2017-01-06 21:30 | NUR ---
[facility] RN INITIAL NOTE RECEIVED PT FROM RADIOLOGY. FAMILY AT BEDSIDE. PT NON VERBAL BUT ABLE TO MUMBLE WORDS. NO ACUTE DISTRESS NOTED. TRANSFERRED SAFELY TO PT'S ROOM. ON 3L OF O2 VIA NC AND SATURATING 97%. VS- BP 149/85, HR 97, R 20, T 97.5 AND NO C/O PAIN OR FACIAL GRIMACE NOTED AT THIS TIME. PT WITH NON PRODUCTIVE COUGH AND CONGESTION NOTED. AUSCULTATED HEART, LUNGS AND BOWEL SOUNDS. LUNG SOUNDS NOTED WITH CRACKLES IN UPPER LOBES AND DIMINISHED AT THE BASES. BOWEL SOUNDS ACTIVE IN ALL 4 QUADRANTS. TELE- SINUS RHYTHM 88. IV SITE LAC #20 CLEAN, PATENT AND FLUSHING WELL. LCW HD CATH CLEAN AND SECURED IN PLACE WITH CLEAN DRESSING. RIGHT FEMORAL CATH IN PLACE AND CLEAN. SITTER AT BEDSIDE FOR PT SAFETY. BED LOCKED IN PLACE AND IN LOWEST POSITION WITH CALL LIGHT WITHIN REACH. WILL CONTINUE TO MONITOR.
[2017-01-06] MEDS: diphenhydrAMINE HCL 25 MG CAPSULE PO SCH (21:45)
[2017-01-07] VITALS: BP 140/93
[2017-01-07] MEDS: ACETYLCYSTEINE 10% SOLN 400 MG/4 ML VIAL NEB SCH ×6 (00:29→23:30)
[2017-01-07] MEDS: ALBUTEROL FS 2.5 MG/3 ML VIAL.NEB IH SCH ×6 (00:29→20:23)
[2017-01-07] MEDS: LORAZEPAM INJ 2 MG/ML VIAL IV PRN ×3 (01:56→20:25)
[2017-01-07 04:00] VITALS: BP 146/93
[2017-01-07] MEDS: HYDROCODONE/APAP 5/325MG 1 EACH TABLET PO PRN (06:04)
--- NOTE | 2017-01-07 07:21 | NUR ---
[facility] RN CLOSING NOTE PT REMAINED STABLE DURING SHIFT. SITTER AT BEDSIDE. PT NOTED WITH EPISODES OF RESTLESSNESS AND TRYING TO PULL AT LINES. IV REINFORCED AND IN PLACE. LCW HD CATH CLEAN AND IN PLACE. ATIVAN 1MG/0.5ML IVP GIVEN AND PT REMAINED CALM, SAFE AND WENT BACK TO SLEEP. ALL SAFETY MEASURES IN PLACE. BED LOCKED IN PLACE AND IN LOWEST POSITION. FACIAL GRIMACE NOTED AND GAVE NORCO 5/325 FOR PAIN MANAGEMENT. CALL LIGHT WITHIN REACH AT ALL TIMES. WILL ENDORSE TO NEXT SHIFT FOR CONTINUITY OF CARE.
[2017-01-07 08:00] VITALS: BP 142/75
[2017-01-07] MEDS: PANTOPRAZOLE 40 MG VIAL IV SCH ×2 (09:57→16:26)
[2017-01-07] MEDS: NIFEdipine XL (30MG) 30 MG TAB PO SCH (09:58)
[2017-01-07] MEDS: risperiDONE 0.25 MG TABLET PO SCH ×2 (09:58→17:48)
[2017-01-07] MEDS: LEVETIRACETAM (250 MG) 250 MG TABLET PO SCH ×2 (09:58→21:56)
[2017-01-07] MEDS: Z GUARD REMEDY 2 OZ OINT TP SCH (09:58)
[2017-01-07] MEDS: FOLIC ACID 1 MG TABLET PO SCH (09:58)
[2017-01-07] MEDS: FERROUS SULFATE (325 MG) 325 MG/TAB TABLET PO SCH (09:58)
[2017-01-07] MEDS: SEVELAMER CARBONATE 0.8 GM POWD.PACK PO SCH ×3 (09:58→17:47)
[2017-01-07] MEDS: AZITHROMYCIN 250 MG TABLET PO SCH (11:30)
[2017-01-07 16:00] VITALS: BP 140/72
--- NOTE | 2017-01-07 18:50 | NUR ---
RN NOTE PT RESTING AT BED, EYES OPEN, NO ACUTE DISTRESS NOTED.ON 3L OF O2 VIA NC SATURATING WELL, NO PAIN OR FACIAL GRIMACE NOTED AT THIS TIME. SITTER AT BEDSIDE. IV SITE LAC #20 CLEAN, PATENT AND FLUSHING WELL. COVERED WITH DRESSING, PT TENDS TO PULL OUT IV SITES. LCW HD CATH CLEAN AND SECURED IN PLACE WITH CLEAN DRESSING. ALL DUE MEDS GIVEN, NEEDS ATTENDED AND MET. BED LOCKED IN PLACE AND IN LOWEST POSITION WITH CALL LIGHT WITHIN REACH.
--- NOTE | 2017-01-07 19:55 | NUR ---
RN INITIAL NOTES; PT ON THE BED WITHOUT ANY DISTRESS, PT IS AWAKE AND NON VERBAL. BREATHING EVEN AND UNLABORED ON 3 LPM VIA NC, LAC 20 G PERIPHERAL IV INTACT AND PATENT . LCW HD CATH AND RW AV SHUNT INTACT . INCONTINENT TO BOWEL AND ANURIC TO BLADDER . WITH 1;1 SITTER. BED IN THE LOWEST/LOCKED POSITION . SAFETY MEASURES APPLIED . WILL TURN AND REPOSITION Q2H AND NEEDED. WILL CONTINUE TO MONITOR .
[2017-01-07 20:00] VITALS: BP 140/76
--- NOTE | 2017-01-07 20:29 | NUR ---
RN NOTE; ATIVAN 1 MG IV GIVEN FOR AGITATION , TOLERATED WELL AT THIS TIME .WILL REASSESS.
[2017-01-07] MEDS: DIVALPROEX SODIUM 125 MG CAP.SPRINK PO SCH (21:56)
[2017-01-07] MEDS: diphenhydrAMINE HCL 25 MG CAPSULE PO SCH (21:57)
[2017-01-08] MEDS: ALBUTEROL FS 2.5 MG/3 ML VIAL.NEB IH SCH ×7 (00:07→23:00)
[2017-01-08] MEDS: ACETYLCYSTEINE 10% SOLN 400 MG/4 ML VIAL NEB SCH ×6 (00:07→23:00)
[2017-01-08 04:00] VITALS: BP 148/89
--- NOTE | 2017-01-08 06:50 | NUR ---
RN EOS NOTE; PT REMAINED STABLE DURING THE SHIFT, NO ANY DISTRESS NOTED. ALL PRESCRIBED MEDS TOLERATED WELL. TURNED AND REPOSITIONED Q2H AND NEEDED . TOTAL CARE RENDERED . WILL ENDORSE TO NEXT SHIFT RN FOR CONTINUITY OF CARE.
--- NOTE | 2017-01-08 07:29 | NUR ---
RN NOTES RECEIVED PT FROM INFORMATION CLERK CASHIER IN STABLE CONDITION, NONVERBAL, MUMBLES WORDS. SITTER AT BEDSIDE. L AC 20G IV SITE DRY AND INTACT, LCW PERMACATH IN PLACE, DRESSING PLACED.BED LOCKED AND IN LOWEST POSITION, CALL LIGHT WITHIN REACH, SIDE RAILS UPX3, WILL CONT TO MONITOR.
[2017-01-08 07:46] LABS: BASOPHILS % (AUTO) 0.6 % (0.0-2.0); EOSINOPHILS # (AUTO) 0.3 /CMM (0.0-0.7); EOSINOPHILS % (AUTO) 3.9 % (0.0-6.0); HEMATOCRIT 25 % (33-45); HEMOGLOBIN 8.4 g/dL (11.5-14.8); LYMPHOCYTES # (AUTO) 1.2 /CMM (0.8-4.8); LYMPHOCYTES % (AUTO) 17.6 % (20.0-44.0); MEAN CORPUSCULAR HEMOGLOBIN 31 PG (26.0-33.0); MEAN CORPUSCULAR HGB CONC 34 g/dl (31.0-36.0); MEAN CORPUSCULAR VOLUME 93 fL (82-100); MONOCYTES # (AUTO) 0.5 /CMM (0.1-1.30); MONOCYTES % (AUTO) 7.5 % (2.0-12.0); NEUTROPHILS # (AUTO) 4.6 /CMM (1.8-8.9); NEUTROPHILS % (AUTO) 70.4 % (43.0-81.0); PLATELET COUNT (AUTO) 194 /CMM (150-450); RDW COEFFICIENT OF VARIATION 14.9 (11.5-15.0); RED BLOOD CELL COUNT(AUTO) 2.68 MIL/uL (4.0-5.2); WHITE BLOOD COUNT (AUTO) 6.6 K/uL (4.3-11.0)
[2017-01-08 08:00] LABS: CALCIUM, SERUM 9.1 mg/dL (8.5-10.1); CREATININE 6.9 mg/dL (0.6-1.3); POTASSIUM 4.7 mmol/L (3.5-5.1)
[2017-01-08] MEDS: NIFEdipine XL (30MG) 30 MG TAB PO SCH (08:24)
[2017-01-08] MEDS: FERROUS SULFATE (325 MG) 325 MG/TAB TABLET PO SCH (08:24)
[2017-01-08] MEDS: PANTOPRAZOLE 40 MG VIAL IV SCH ×2 (08:24→17:34)
[2017-01-08] MEDS: SEVELAMER CARBONATE 0.8 GM POWD.PACK PO SCH ×3 (08:24→17:34)
[2017-01-08] MEDS: DIVALPROEX SODIUM 125 MG CAP.SPRINK PO SCH ×2 (08:24→21:31)
[2017-01-08] MEDS: Z GUARD REMEDY 2 OZ OINT TP SCH (08:25)
[2017-01-08] MEDS: FOLIC ACID 1 MG TABLET PO SCH (08:25)
[2017-01-08] MEDS: risperiDONE 0.25 MG TABLET PO SCH ×2 (08:25→17:35)
[2017-01-08] MEDS: LEVETIRACETAM (250 MG) 250 MG TABLET PO SCH ×2 (08:25→21:31)
--- NOTE | 2017-01-08 11:15 | NUR ---
RN NOTES PT EXTREMELY AGITATED, ATTEMPTING TO PULL OUT IV. ATIVAN GIVEN WILL CONT TO MONITOR.
[2017-01-08] MEDS: LORAZEPAM INJ 2 MG/ML VIAL IV PRN ×2 (11:21→17:34)
[2017-01-08] MEDS: AZITHROMYCIN 250 MG TABLET PO SCH (11:26)
[2017-01-08 16:00] VITALS: BP 134/81
--- NOTE | 2017-01-08 18:21 | NUR ---
RN NOTES PT RESTING IN BED WITH SITTER AT BEDSIDE. PT BEGAN PULLING AT IV SITE AGAIN AND BECOMING AGITATED, ATIVAN GIVEN. PT REMAINED IN STABLE CONDITION THROUGHOUT THE SHIFT, NO SIGNIFICANT CHANGES. BED LOCKED AND IN LOWEST POSITION, SIDE RAILS UPX3, BED ALARM ON. WILL ENDORSE TO ONCOMING SHIFT.
[2017-01-08 20:00] VITALS: BP 133/85
--- NOTE | 2017-01-08 20:00 | NUR ---
MS RN NOTES RECEIVED PTS ON BED AWAKE ALERT AND RESPONSIVE ,V/S STABLE AFEBRILE , ON 02 AT 3 LITERS VIA NC SATING 96%, NO SOB NO DISTRESS , BREATHING EVEN AND UNLABORED, WITH 1:1 SITTER AT BEDSIDE SECONDARY TO PULLING INVASIVE TUBING , WITH HD ACCESS ON L CHEST NO BLEEDING NOTED , AV SHUNT ON RIGHT ARM NOTED WITH BRUIT AND THRILL , HOB ELEVATED FOR ASPIRATION PRECAUTION NOTED CONGESTED BREATHING TREATMENT GIVEN BY RT.ALL NEEDS ATTENDED TOO CALL LIGHT WITHIN REACH, ALL DUE MEDS GIVEN ORDERED, KEPT PTS CLEAN DRY AND COMFORTABLE.WILL CONTINUE TO MONITOR -PTS.
[2017-01-08] MEDS: diphenhydrAMINE HCL 25 MG CAPSULE PO SCH (21:31)
--- NOTE | 2017-01-08 22:00 | NUR ---
MS RN NOTES PTS PULLED OUT IV LINE , REINSERTED WILL CONTINUE TO MONITOR PTS.SITTER AT BEDSIDE.
--- NOTE | 2017-01-09 | NUR ---
MS RN NOTES PTS IS SLEEPING COMFORTABLY.
--- NOTE | 2017-01-09 00:30 | NUR ---
MS RN NOTES RAPID INFLUENZA DONE , AWAITS RESULT.
--- NOTE | 2017-01-09 01:00 | NUR ---
MS RN NOTES RAPID INFLUENZA DONE WITH NEGATIVE RESULT.
[2017-01-09] MEDS: ALBUTEROL FS 2.5 MG/3 ML VIAL.NEB IH SCH ×6 (03:49→23:11)
[2017-01-09 04:00] VITALS: BP 149/86
[2017-01-09] MEDS: LORAZEPAM INJ 2 MG/ML VIAL IV PRN ×2 (05:02→19:26)
--- NOTE | 2017-01-09 07:32 | NUR ---
MS RN NOTES PTS ON BED AWAKE AND RESPONSIVE , WITH 1:1 SITTER , NO SOB NO DISTRESS NOTED , NO SIGNIFICANCE CHANGE NOTED , ENDORSE TO RN DAY SHIFT FOR CONTINUITY OF CARE.
[2017-01-09] MEDS: ACETYLCYSTEINE 10% SOLN 400 MG/4 ML VIAL NEB SCH ×4 (07:35→23:11)
[2017-01-09 08:00] VITALS: BP 163/97
--- NOTE | 2017-01-09 08:00 | NUR ---
MS RN NOTES RECEIVED PTS ON BED SLEEPING BUT AROUSAL BY CALLING HER NAME AND SHAKE HER STERNUM,V/S STABLE AFEBRILE , ON 02 AT 3 LITERS VIA NC SATING 92%,WITH SOB ,ON BREATHING TX AND LABORED RESPIRATION WITH 1:1 SITTER AT BEDSIDE SECONDARY TO PULLING INVASIVE TUBING , WITH HD ACCESS ON L CHEST NO BLEEDING NOTED , AV SHUNT ON RIGHT ARM NOTED WITH BRUIT AND THRILL , HOB ELEVATED FOR ASPIRATION PRECAUTION NOTED CONGESTED BREATHING TREATMENT GIVEN BY RT.ALL NEEDS ATTENDED TOO CALL LIGHT WITHIN REACH,KEPT PTS CLEAN DRY AND COMFORTABLE.WILL CONTINUE TO MONITOR CLOSELY
--- NOTE | 2017-01-09 09:00 | NUR ---
MS RN NOTE WITH CHEST CONGESTED ORAL SUCTION DONE BY RT, WILL CONT TO MONITOR CLOSELY
[2017-01-09] MEDS: risperiDONE 0.25 MG TABLET PO SCH ×2 (09:28→17:39)
[2017-01-09] MEDS: DIVALPROEX SODIUM 125 MG CAP.SPRINK PO SCH ×2 (09:28→21:00)
[2017-01-09] MEDS: LEVETIRACETAM (250 MG) 250 MG TABLET PO SCH ×2 (09:28→21:00)
[2017-01-09] MEDS: FOLIC ACID 1 MG TABLET PO SCH (09:28)
[2017-01-09] MEDS: FERROUS SULFATE (325 MG) 325 MG/TAB TABLET PO SCH (09:29)
[2017-01-09] MEDS: NIFEdipine XL (30MG) 30 MG TAB PO SCH (09:29)
[2017-01-09] MEDS: PANTOPRAZOLE 40 MG VIAL IV SCH ×2 (09:30→16:37)
[2017-01-09] MEDS: SEVELAMER CARBONATE 0.8 GM POWD.PACK PO SCH ×3 (09:32→17:39)
[2017-01-09] MEDS: Z GUARD REMEDY 2 OZ OINT TP SCH (09:40)
--- NOTE | 2017-01-09 10:21 | NUR ---
MS RN NOTE DR FRANKLIN AND ROSA MARIA RN COUNTER TOP MAKER AT BEDSIDE NOTIFIED THAT PATIENT STILL CONGESTED AND ON ASPIRATION PRECAUTION CLOSELY , ST AT BEDSIDE DOING SWALLOW EVAL ,STILL AT HIGH RISK FOR ASPIRATION , PER ROSA MARIA OK TO PLACE MID LINE ,WILL CONT TP MONITOR CLOSELY
--- NOTE | 2017-01-09 11:12 | NUR ---
MS RN NOTE ON HD AT THIS TIME ,WILL F\U
--- NOTE | 2017-01-09 13:17 | NUR ---
MS OWEN NOTE HD COMPLETED, 1L OF FLUIDS REMOVE, BP126/77 HR 106 Addendum: 01/09/17 at 1330 by FLORENCIO CABRERA RN MID LINE JOHN 18 BY GORGE ON LT UPPER ARM INSERTED ORDERED
[2017-01-09] MEDS: AZITHROMYCIN 250 MG TABLET PO SCH (13:19)
--- NOTE | 2017-01-09 13:52 | NUR ---
YUMIKO OWEN NOTE C\O ITCHINESS AND SCRATCHING HER BODY , CALLED ROSA MARIA OWEN DOG TRAINER WITH NEW ORDER BENADRYL 25 MG IVP PRN, ORDER CARRIED OUT
[2017-01-09] MEDS: diphenhydrAMINE HCL 50 MG/ML VIAL IV PRN (14:20)
[2017-01-09 16:35] VITALS: BP 115/86
--- NOTE | 2017-01-09 17:50 | NUR ---
MS RN NOTE HAVING DINNER , FED BY SCROLL ASSEMBLER WITH ASPIRATION PRECAUTION , WILL CONT TO F\U
--- NOTE | 2017-01-09 18:46 | NUR ---
MS RN NOTE WITH SITTER AT BEDSIDE,KEEP CLEAN DRY , STILL TRYING TO REMOVE ALL LINE ,OBSERVED CLOSELY ,
--- NOTE | 2017-01-09 19:30 | NUR ---
MS RN INITIAL NOTE PT RECEIVED IN BED WITH SITTER AT BEDSIDE. NON VERBAL BUT MUMBLES UNCLEAR WORDS. ON 3L OF O2 VIA NASAL CANNULA AND SATURATING 92-95%. BREATHING REGULAR, EVEN AND UNLABORED. NOTED WITH NON-PRODUCTIVE COUGH AND SOME CONGESTION. ALSO NOTED WITH RESTLESSNESS, PULLING AT LINES AND IRRITABLE BEHAVIOR. BED IN LOWEST POSITION AND LOCKED IN PLACE WITH BED ALARM ON. IV DEE MIDLINE IN PLACE, SECURED AND FLUSHING WELL. RFA AV FISTULA IN PLACE AND CLEAN. LCW HD CATH IN PLACE AND CLEAN. WILL CONTINUE TO MONITOR.
[2017-01-09 20:00] VITALS: BP 148/105
[2017-01-09] MEDS: diphenhydrAMINE HCL 25 MG CAPSULE PO SCH (21:00)
--- NOTE | 2017-01-09 21:30 | NUR ---
MS RN NOTE \ DR TORRE SAW PT WITH NEW ORDER EGD FOR TOMORROW AND NPO EXCEPT MEDS STARTING AT MIDNIGHT TONIGHT. CALLED MOM PAULA AND LEFT MESSAGE. WILL TRY AGAIN LATER.
[2017-01-10] VITALS (13 sets, daily range): BP systolic 126–165; BP diastolic 75–108
[2017-01-10] MEDS: diphenhydrAMINE HCL 50 MG/ML VIAL IV PRN ×2 (00:19→08:19)
[2017-01-10] MEDS: ALBUTEROL FS 2.5 MG/3 ML VIAL.NEB IH SCH ×6 (04:05→23:27)
[2017-01-10] MEDS: LORAZEPAM INJ 2 MG/ML VIAL IV PRN (06:07)
--- NOTE | 2017-01-10 06:55 | NUR ---
MS RN CLOSING NOTE PT REMAINED STABLE DURING SHIFT. NO ACUTE DISTRESS NOTED. NPO STATUS MAINTAINED EXCEPT MEDS AFTER MIDNIGHT. SITTER AT BEDSIDE THROUGHOUT THE NIGHT. ALL NEEDS ATTENDED TO AND MET PROMPTLY. KEPT CLEAN AND DRY. REPOSITIONED Q2H. SPOKE WITH MOTHER PAULA OVER THE PHONE AND OBTAINED CONSENT FOR EGD PROCEDURE WITH ANESTHESIA TODAY. NOTED WITH EPISODES OF RESTLESSNESS AND ITCHING/ SCRATCHING GAVE MEDICATIONS TO KEEP PT COMFORTABLE. WILL ENDORSE TO NEXT SHIFT FOR CONTINUITY OF CARE.
--- NOTE | 2017-01-10 07:30 | NUR ---
MS RN OPENING RECEIVED PATIENT A/OX1 NON VERBAL WILL OPEN EYES. PATIENT APPEARS IN NO ACUTE DISTRESS. NO S/S SOB, DIFFICULTY BREATHING AND FLACC 0 AT THIS TIME. ALL NEEDS IN REACH, PATIENT REPOSITIONED FOR INCREASED COMFORT. SITTER AT SIDE. WILL ROUND Q2H OR LESS PER NEEDS. BED LOWERED AND LOCKED, RAILS UPX3 FOR SAFETY AND BED ALARM ON.
[2017-01-10 07:43] LABS: BASOPHILS % (AUTO) 0.8 % (0.0-2.0); EOSINOPHILS # (AUTO) 0.2 /CMM (0.0-0.7); EOSINOPHILS % (AUTO) 3.9 % (0.0-6.0); HEMATOCRIT 22 % (33-45); HEMOGLOBIN 7.6 g/dL (11.5-14.8); LYMPHOCYTES % (AUTO) 18.3 % (20.0-44.0); MEAN CORPUSCULAR HEMOGLOBIN 32 PG (26.0-33.0); MEAN CORPUSCULAR HGB CONC 35 g/dl (31.0-36.0); MEAN CORPUSCULAR VOLUME 93 fL (82-100); MONOCYTES # (AUTO) 0.4 /CMM (0.1-1.30); MONOCYTES % (AUTO) 7.8 % (2.0-12.0); NEUTROPHILS # (AUTO) 3.8 /CMM (1.8-8.9); NEUTROPHILS % (AUTO) 69.2 % (43.0-81.0); PLATELET COUNT (AUTO) 164 /CMM (150-450); RDW COEFFICIENT OF VARIATION 14.2 (11.5-15.0); RED BLOOD CELL COUNT(AUTO) 2.38 MIL/uL (4.0-5.2); WHITE BLOOD COUNT (AUTO) 5.5 K/uL (4.3-11.0)
[2017-01-10 07:51] LABS: CREATININE 5.5 mg/dL (0.6-1.3); POTASSIUM 4.3 mmol/L (3.5-5.1)
[2017-01-10] MEDS: ACETYLCYSTEINE 10% SOLN 400 MG/4 ML VIAL NEB SCH ×3 (07:51→23:27)
[2017-01-10] MEDS: SEVELAMER CARBONATE 0.8 GM POWD.PACK PO SCH ×3 (08:00→18:28)
[2017-01-10] MEDS: PANTOPRAZOLE 40 MG VIAL IV SCH ×2 (08:18→16:42)
[2017-01-10] MEDS: risperiDONE 0.25 MG TABLET PO SCH ×2 (08:19→18:28)
[2017-01-10] MEDS: FOLIC ACID 1 MG TABLET PO SCH (08:19)
[2017-01-10] MEDS: FERROUS SULFATE (325 MG) 325 MG/TAB TABLET PO SCH (08:19)
[2017-01-10] MEDS: DIVALPROEX SODIUM 125 MG CAP.SPRINK PO SCH ×2 (08:20→21:56)
[2017-01-10] MEDS: LEVETIRACETAM (250 MG) 250 MG TABLET PO SCH ×2 (08:20→21:56)
[2017-01-10] MEDS: NIFEdipine XL (30MG) 30 MG TAB PO SCH (08:24)
[2017-01-10] MEDS: CLONIDINE HCL 0.1 MG TABLET GT PRN (08:25)
[2017-01-10] MEDS: Z GUARD REMEDY 2 OZ OINT TP SCH (08:26)
[2017-01-10] MEDS: VIT B CMPLX 3/FA/VIT C/BIOTIN 1 TAB TABLET PO SCH (08:33)
[2017-01-10] MEDS: AZITHROMYCIN 250 MG TABLET PO SCH (12:26)
[2017-01-10] MEDS: Z GUARD REMEDY 2 OZ OINT TP PRN ×2 (12:30→16:45)
--- NOTE | 2017-01-10 13:47 | NUR ---
MS RN NOTES LEFT MESSAGE TO DR TORRE OFFICE TO CONFIRM IF PATIENT NEEDING BLOOD TRANSFUSION PRIOR TO EGD. CALLED LAB AND PER BLOOD BACK BLOOD WILL NOT BE READY FOR ABOUT ANOTHER 2 HOURS
[2017-01-10] MEDS ORDERED: ANESTHESIA TRAY IN PYXIS 1 EA TRAY MC ONE (15:48)
--- NOTE | 2017-01-10 17:13 | NUR ---
MS RN NOTES PATIENT TAKEN DOWN FOR EGD IN STABLE CONDITION
--- NOTE | 2017-01-10 18:19 | NUR ---
MS RN NOTES CALLED BLOOD BANK I HAVE NOT GOTTEN A CALL BLOOD IS REDY. PER LAB BLOOD IS READY FOR TURBINE OPERATOR. PATIENT STILL AWAY IN SURGICAL UNIT FOR EGD.
--- NOTE | 2017-01-10 18:30 | NUR ---
MS RN NOTES RECEIVED PATIENT FROM SURGICAL UNIT STABLE CONDITION. VS STABLE SITTER AT SIDE
--- NOTE | 2017-01-10 18:54 | NUR ---
MS RN CLOSING PATIENT STABLE. ALL DUE MEDS GIVEN AND ALL NEEDS MET. SITTER AT SIDE. BED LOWERED AND LOCKED, RAILS UPX 3 FOR SAFETY AND BED ALARM ON. WILL ENDORSE CARE TO RN FOR [place]
[2017-01-10] MEDS ORDERED: METOCLOPRAMIDE HCL 10 MG/2 ML VIAL IV ONE (19:00)
--- NOTE | 2017-01-10 19:10 | NUR ---
RN OPENING NOTES RECEIVED REPORT FROM AM RN. PATIENT SLEEPING IN BED. A/O X1, RESPONSIVE TO VERBAL & TACTILE STIMULI. VERBAL BUT MUMBLES WORDS & UNABLE TO MAKE NEEDS KNOWN. BREATHING EVEN & UNLABORED, ON O2 3L VIA NC. PULSES PRESENT. LEFT CHEST WALL PERMACATH INTACT W/ DRESSING CDI. LEFT UPPER ARM MIDLINE #18 INTACT W/ DRESSING CDI, ON SALINE LOCK. NO S/S OF PAIN OR DISCOMFORT @ THIS TIME. SAFETY MEASURES IN PLACE W/ SIDE RAILS UP, BED LOCKED IN LOWEST POSITION & SITTER @ BEDSIDE. WILL CONTINUE TO MONITOR FOR CHANGES.
--- NOTE | 2017-01-10 20:22 | NUR ---
RN NOTES 1 UNIT PRBC TRANSFUSION STARTED. NO INITIAL REACTIONS NOTED. WILL CONTINUE TO MONITOR.
[2017-01-10] MEDS: diphenhydrAMINE HCL 25 MG CAPSULE PO SCH (21:56)
--- NOTE | 2017-01-10 23:12 | NUR ---
RN NOTES 1 UNIT PRBC TRANSFUSION COMPLETED W/ NO ADVERSE REACTIONS NOTED. PATIENT TOLERATED WELL.
[2017-01-11] MEDS: CLONIDINE HCL 0.1 MG TABLET GT PRN (02:36)
[2017-01-11] MEDS: LORAZEPAM INJ 2 MG/ML VIAL IV PRN ×3 (02:46→22:43)
[2017-01-11] MEDS: ALBUTEROL FS 2.5 MG/3 ML VIAL.NEB IH SCH ×5 (03:00→20:17)
[2017-01-11 04:00] VITALS: BP 152/78
[2017-01-11 04:44] VITALS: BP 152/78
--- NOTE | 2017-01-11 07:10 | NUR ---
RN OPENING NOTE REPORT REC'VD FROM NANCY BENNETT. PT SLEEPING. AROUSABLE CONFUSED SITTER PULLING AT LINES. 4 LNC 98% NON LABORED RESP. MINDI HD CATH DERSG CDI. LUE MIDLINE. RFA AV SHUNT. HD SCHEDULED FOR TODAY. EPOGEN SCHEDULED FOR TODAY. PRBC GIVEN BY NANCY RN +GUIAC EGD DONE YESTERDAY. BED IN LOW LOCKED POSITION. SIDE RAILS X 3. WILL CONT TO MONITOR CLOSELY.
[2017-01-11] MEDS: ACETYLCYSTEINE 10% SOLN 400 MG/4 ML VIAL NEB SCH ×2 (07:46→15:01)
[2017-01-11 07:50] LABS: BASOPHILS # (AUTO) 0.1 /CMM (0.0-0.2); EOSINOPHILS # (AUTO) 0.3 /CMM (0.0-0.7); EOSINOPHILS % (AUTO) 5.4 % (0.0-6.0); HEMATOCRIT 24 % (33-45); HEMOGLOBIN 8.5 g/dL (11.5-14.8); LYMPHOCYTES # (AUTO) 0.9 /CMM (0.8-4.8); LYMPHOCYTES % (AUTO) 14.3 % (20.0-44.0); MEAN CORPUSCULAR HEMOGLOBIN 32 PG (26.0-33.0); MEAN CORPUSCULAR HGB CONC 35 g/dl (31.0-36.0); MEAN CORPUSCULAR VOLUME 93 fL (82-100); MONOCYTES # (AUTO) 0.4 /CMM (0.1-1.30); MONOCYTES % (AUTO) 6.1 % (2.0-12.0); NEUTROPHILS # (AUTO) 4.8 /CMM (1.8-8.9); NEUTROPHILS % (AUTO) 73.2 % (43.0-81.0); PLATELET COUNT (AUTO) 150 /CMM (150-450); RED BLOOD CELL COUNT(AUTO) 2.62 MIL/uL (4.0-5.2); WHITE BLOOD COUNT (AUTO) 6.5 K/uL (4.3-11.0)
[2017-01-11 08:00] VITALS: BP 147/88
[2017-01-11 08:19] LABS: CREATININE 7.1 mg/dL (0.6-1.3); POTASSIUM 4.6 mmol/L (3.5-5.1)
[2017-01-11] MEDS: SEVELAMER CARBONATE 0.8 GM POWD.PACK PO SCH ×3 (08:53→17:10)
[2017-01-11] MEDS: PANTOPRAZOLE 40 MG VIAL IV SCH ×2 (08:53→17:10)
[2017-01-11] MEDS: VIT B CMPLX 3/FA/VIT C/BIOTIN 1 TAB TABLET PO SCH (08:54)
[2017-01-11] MEDS: DIVALPROEX SODIUM 125 MG CAP.SPRINK PO SCH ×2 (08:54→22:11)
[2017-01-11] MEDS: FOLIC ACID 1 MG TABLET PO SCH (08:54)
[2017-01-11] MEDS: LEVETIRACETAM (250 MG) 250 MG TABLET PO SCH ×2 (08:54→22:10)
[2017-01-11] MEDS: NIFEdipine XL (30MG) 30 MG TAB PO SCH (08:54)
[2017-01-11] MEDS: FERROUS SULFATE (325 MG) 325 MG/TAB TABLET PO SCH (08:54)
[2017-01-11] MEDS: risperiDONE 0.25 MG TABLET PO SCH ×2 (08:54→18:26)
--- NOTE | 2017-01-11 08:56 | NUR ---
PT MISSING WRISTBAND. HAS BLOOD ID BAND. WILL REQUEST WRISTBAND. MANUAL MED ADMINISTRATION.
[2017-01-11] MEDS: AZITHROMYCIN 250 MG TABLET PO SCH (09:00)
[2017-01-11] MEDS: Z GUARD REMEDY 2 OZ OINT TP SCH (09:03)
[2017-01-11] MEDS ORDERED: EPOETIN ALFA (10,000 UNIT) 10,000 UNIT/ML VIAL SQ ONE (10:30)
--- NOTE | 2017-01-11 11:58 | NUR ---
RN NOTES PT SLEEPING. DIALYSIS SCHEDULED FOR TODAY. MOM AT BEDSIDE. ANSWERED QUESTIONS.
[2017-01-11 16:00] VITALS: BP 137/93
[2017-01-11 17:11] VITALS: BP 137/93
--- NOTE | 2017-01-11 18:00 | NUR ---
RN CLOSING NOTES SITTER AT BEDSIDE. PT RESTING COMFORTABLY. NON LABORED RESP. WILL ENDORSE TO NOC RN.
--- NOTE | 2017-01-11 19:40 | NUR ---
MS RN NOTE RECEIVED PATIENT FROM DAY SHIFT, PATIENT IS ALERT AND ORIENTEDX1, MUMBLES WORDS, NO S/S OF RESPIRATORY DISTRESS OR PAIN AT THIS TIME. MIDLINE ON LEFT ARM IS PATENT AND INTACT. 1:1 SITTER PRESENT FOR SAFETY AND OBSERVATION. SRX2, BED IN LOW POSITION, CALL LIGHT WITHIN REACH, WILL CONTINUE TO MONITOR PATIENT.
[2017-01-11 20:00] VITALS: BP 126/83
[2017-01-11] MEDS: diphenhydrAMINE HCL 25 MG CAPSULE PO SCH (22:10)
--- NOTE | 2017-01-11 22:45 | NUR ---
AUDIO VISUAL COLLECTIONS COORDINATOR NOTE PATIENT LOOKS ANXIOUS, TRIED TO PULL OUT HD CATHETER ON HER CHEST WALL. ATIVAN 1MG IVP GIVEN. WILL MONITOR EFFECTIVENESS.
[2017-01-12] MEDS: ALBUTEROL FS 2.5 MG/3 ML VIAL.NEB IH SCH ×7 (00:06→23:47)
[2017-01-12] MEDS: ACETYLCYSTEINE 10% SOLN 400 MG/4 ML VIAL NEB SCH ×4 (00:06→23:48)
[2017-01-12 04:00] VITALS: BP 147/92
--- NOTE | 2017-01-12 06:40 | NUR ---
MS OWEN NOTE PATIENT IS RESTING IN BED COMFORTABLY, NON-LABORED BREATHING AND NO FACIAL GRIMACE NOTED. MORNING CARE RENDERED, ALL DUE MEDS GIVEN. WILL ENDORSE TO DAY SHIFT NURSE FOR [place]. Addendum: 01/12/17 at 0641 by AMEENA HUNT RN MS OWEN NOTE
[2017-01-12] MEDS: SEVELAMER CARBONATE 0.8 GM POWD.PACK PO SCH ×3 (07:55→17:18)
[2017-01-12] MEDS: LORAZEPAM INJ 2 MG/ML VIAL IV PRN ×3 (07:56→20:29)
[2017-01-12 08:00] VITALS: BP 118/86
[2017-01-12] MEDS: PANTOPRAZOLE 40 MG VIAL IV SCH ×2 (08:00→17:17)
--- NOTE | 2017-01-12 08:00 | NUR ---
RN NOTE PATIENT IS ALERT AND ORIENTEDX1, NO S/S OF RESPIRATORY DISTRESS OR PAIN AT THIS TIME. MIDLINE ON LEFT ARM IS PATENT AND INTACT. 1:1 SITTER PRESENT FOR SAFETY AND OBSERVATION. SRX2, BED IN LOW POSITION, CALL LIGHT WITHIN REACH, WILL CONTINUE TO MONITOR PATIENT.
[2017-01-12] MEDS: VIT B CMPLX 3/FA/VIT C/BIOTIN 1 TAB TABLET PO SCH (08:01)
[2017-01-12] MEDS: FERROUS SULFATE (325 MG) 325 MG/TAB TABLET PO SCH (08:01)
[2017-01-12] MEDS: LEVETIRACETAM (250 MG) 250 MG TABLET PO SCH ×2 (08:02→21:33)
[2017-01-12] MEDS: DIVALPROEX SODIUM 125 MG CAP.SPRINK PO SCH ×2 (08:02→21:33)
[2017-01-12] MEDS: FOLIC ACID 1 MG TABLET PO SCH (08:02)
[2017-01-12] MEDS: NIFEdipine XL (30MG) 30 MG TAB PO SCH (08:06)
[2017-01-12] MEDS: risperiDONE 0.25 MG TABLET PO SCH ×2 (08:11→17:17)
[2017-01-12] MEDS: Z GUARD REMEDY 2 OZ OINT TP SCH (08:13)
--- NOTE | 2017-01-12 11:00 | NUR ---
RN NOTES PATIENT SEEN AND EVALUATED BY JACKLYN CALL. ORDERS NOTED AND CARRIED OUT.
[2017-01-12] MEDS: AZITHROMYCIN 250 MG TABLET PO SCH (12:09)
[2017-01-12 16:00] VITALS: BP 119/93
--- NOTE | 2017-01-12 18:40 | NUR ---
RN NOTES PATIENT IN BED RESTING COMFORTABLE NO SOB OR ACUTE DISTRESS NOTED. ALL DUE MEDICATIONS ADMINISTERED. ALL NEEDS MET. PATIENT WITH SITTER AT BEDSIDE. WILL ENDORSE [place] TO PM SHIFT.
[2017-01-12 20:00] VITALS: BP 143/96
[2017-01-12] MEDS: diphenhydrAMINE HCL 25 MG CAPSULE PO SCH (21:33)
[2017-01-13 04:00] VITALS: BP 148/89
[2017-01-13] MEDS: ALBUTEROL FS 2.5 MG/3 ML VIAL.NEB IH SCH ×6 (04:09→23:30)
[2017-01-13] MEDS: ACETYLCYSTEINE 10% SOLN 400 MG/4 ML VIAL NEB SCH ×3 (07:35→23:30)
[2017-01-13 07:53] LABS: BASOPHILS # (AUTO) 0.1 /CMM (0.0-0.2); EOSINOPHILS # (AUTO) 0.3 /CMM (0.0-0.7); HEMATOCRIT 24 % (33-45); HEMOGLOBIN 8.4 g/dL (11.5-14.8); LYMPHOCYTES % (AUTO) 18.6 % (20.0-44.0); MEAN CORPUSCULAR HEMOGLOBIN 33 PG (26.0-33.0); MEAN CORPUSCULAR HGB CONC 35 g/dl (31.0-36.0); MEAN CORPUSCULAR VOLUME 94 fL (82-100); MONOCYTES # (AUTO) 0.4 /CMM (0.1-1.30); MONOCYTES % (AUTO) 6.3 % (2.0-12.0); NEUTROPHILS # (AUTO) 3.8 /CMM (1.8-8.9); NEUTROPHILS % (AUTO) 68.1 % (43.0-81.0); PLATELET COUNT (AUTO) 155 /CMM (150-450); RDW COEFFICIENT OF VARIATION 14.5 (11.5-15.0); RED BLOOD CELL COUNT(AUTO) 2.58 MIL/uL (4.0-5.2); WHITE BLOOD COUNT (AUTO) 5.6 K/uL (4.3-11.0)
[2017-01-13 08:00] VITALS: BP 160/84
[2017-01-13 08:02] LABS: CREATININE 7.4 mg/dL (0.6-1.3); MAGNESIUM 2.1 mg/dL (1.8-2.4); PHOSPHORUS 4.8 mg/dL (2.5-4.9); POTASSIUM 4.8 mmol/L (3.5-5.1)
--- NOTE | 2017-01-13 08:02 | NUR ---
unable to do breathing treatment, pt on dialysis. access to flowmeter/hhn equipment blocked by dialysis machine. no resp distress noted.
--- NOTE | 2017-01-13 08:14 | NUR ---
RN NOTES PATIENT IN BED RESTING COMFORTABLE, IN NO APPARENT DISTRESS, NO SOB. NO PAIN OR DISCOMFORT NOTED. PATIENT RECEIVING HEMODIALYSIS AT THIS TIME. NOTED WITH DEE MIDLINE, LEFT CH HD CATH, RIGHT FA AV SHUNT . SAFETY MEASURES RENDERED, CALL LIGHT PLACED WITHIN REACH. WILL CONTINUE TO MONITOR
[2017-01-13] MEDS: PANTOPRAZOLE 40 MG VIAL IV SCH ×2 (09:40→17:30)
[2017-01-13] MEDS: VIT B CMPLX 3/FA/VIT C/BIOTIN 1 TAB TABLET PO SCH (09:40)
[2017-01-13] MEDS: SEVELAMER CARBONATE 0.8 GM POWD.PACK PO SCH ×3 (09:40→17:30)
[2017-01-13] MEDS: FERROUS SULFATE (325 MG) 325 MG/TAB TABLET PO SCH (09:40)
[2017-01-13] MEDS: DIVALPROEX SODIUM 125 MG CAP.SPRINK PO SCH ×2 (09:40→21:07)
[2017-01-13] MEDS: LEVETIRACETAM (250 MG) 250 MG TABLET PO SCH ×2 (09:40→21:07)
[2017-01-13] MEDS: risperiDONE 0.25 MG TABLET PO SCH ×2 (09:40→17:30)
[2017-01-13] MEDS: FOLIC ACID 1 MG TABLET PO SCH (09:41)
[2017-01-13] MEDS: NIFEdipine XL (30MG) 30 MG TAB PO SCH (09:42)
[2017-01-13] MEDS: Z GUARD REMEDY 2 OZ OINT TP SCH (09:42)
--- NOTE | 2017-01-13 10:41 | NUR ---
WOUND CARE CONSULT: PT PRESENTS WITH HEALED SURGICAL INCISION TO RT ARM. NO REDNESS OR DRAINAGE NOTED. PT ALSO NOTED TO HAVE SLIGHT GLUTEAL CREASE EXCORIATION AND RT KNEE ABRASION, PRESENT ON ADMISSION. PT MOVES ABOUT IN BED FREQUENTLY. SITTER AT BEDSIDE. RECOMMENDATIONS MADE FOR SKIN PROTECTION. DISCUSSED WITH NURSING STAFF. WILL SEE PRN. BUST[place]O IN AGREEMENT WITH PLAN OF CARE. Addendum: 01/13/17 at 1043 by SUDHAKAR MCELROY WNDNU Amended: Links added.
[2017-01-13] MEDS: LORAZEPAM INJ 2 MG/ML VIAL IV PRN (10:46)
--- NOTE | 2017-01-13 11:50 | NUR ---
MS/RN NOTES PATIENT NOTED WITH AGITATION, RESTLESSNESS, ATTEMPTING TO PULL OUT IV, WOUND DRESSINGS. ADMINISTERED ATIVAN 1 MG 0.5ML. SITTER AT BEDSIDE MONITOR FOR SAFETY .
[2017-01-13] MEDS ORDERED: EPOETIN ALFA (10,000 UNIT) 10,000 UNIT/ML VIAL SQ ONE (13:00)
--- NOTE | 2017-01-13 15:46 | NUR ---
MS/RN NOTES EPOGEN GIVEN POST HEMODIALYSIS. 2 L TOTAL OUTPUT.
[2017-01-13 16:00] VITALS: BP 152/88
[2017-01-13] MEDS ORDERED: FLU VACC QS 2017-18(36MOS+)/PF 0.5 ML DISP.SYRIN IM ONE (16:00)
--- NOTE | 2017-01-13 19:25 | NUR ---
MS/RN NOTES PATIENT RESTING IN BED APPEARS AGITATED, RESTLESS TRYING TO PULL OUT DRESSINGS, IV LINES. ALL DUE MEDICATIONS GIVEN, ALL NEEDS MET AND ATTENDED, PATIENT KEPT CLEAN AND DRY, SITTER FOR SAFETY. HEMODIALYSIS TODAY WITH TOTAL 2L OUTPUT. WILL CONTINUE TO MONITOR
[2017-01-13 20:00] VITALS: BP_SYST 146; BP_DIAS 108; BP_DIAS 90
--- NOTE | 2017-01-13 20:15 | NUR ---
RN MS OPENING NOTE PT RECEIVED IN NO ACUTE DISTRESS. PT IS A/O X1 AND NOT BALE TO MAKE NEEDS KNOWN. PT IS ON A RENAL DIET. SITTER IS AT BEDSIDE DUE TO PT HX OF PULLING OUT IV LINES AND MORE. PT HAS A LCW HD CATH AND RFA AV SHUNT WELL A DEE MIDLINE THAT ARE ALL CLEAN DRY AND INTACT. COMFORT AND SAFETY MEASURES TO BE PLACED DURING THE SHIFT. WILL CONTINUE TO MONITOR FOR ANY CHANGES.
[2017-01-13] MEDS: diphenhydrAMINE HCL 25 MG CAPSULE PO SCH (21:07)
[2017-01-14] MEDS: LORAZEPAM INJ 2 MG/ML VIAL IV PRN ×2 (03:07→22:06)
--- NOTE | 2017-01-14 03:14 | NUR ---
RN NOTE PT PULLED OUT DEE MIDLINE AT 0255. NEW IV 20G STARTED ON LEFT HAND. IV ATIVAN WAS GIVEN.
[2017-01-14] MEDS: ALBUTEROL FS 2.5 MG/3 ML VIAL.NEB IH SCH ×6 (03:30→23:30)
[2017-01-14 03:46] VITALS: BP 143/96
[2017-01-14 04:00] VITALS: BP 143/96
--- NOTE | 2017-01-14 07:00 | NUR ---
RN OPENING NOTES REC'VD REPORT FROM NOC LEXIE DOVER. 1:1 SITTER AT BEDSIDE. HOB ELEVATED. NO S/S DISTRESS. 2LNC 98% NO LABORED RESP. NORMAL HR. CONFUSED CEREBRAL PALSY RETARDATION. POSSIBLE F/U EGD. BED IN LOW LOCKED POSITION. SIDE RAILS UP X 2. WILL CONT TO MONITOR.
[2017-01-14] MEDS: ACETYLCYSTEINE 10% SOLN 400 MG/4 ML VIAL NEB SCH ×3 (07:46→23:30)
[2017-01-14 09:00] VITALS: BP 148/91
[2017-01-14] MEDS: SEVELAMER CARBONATE 0.8 GM POWD.PACK PO SCH ×3 (09:00→17:10)
[2017-01-14] MEDS: NIFEdipine XL (30MG) 30 MG TAB PO SCH (09:01)
[2017-01-14] MEDS: LEVETIRACETAM (250 MG) 250 MG TABLET PO SCH ×2 (09:01→22:06)
[2017-01-14] MEDS: risperiDONE 0.25 MG TABLET PO SCH ×2 (09:01→17:11)
[2017-01-14] MEDS: VIT B CMPLX 3/FA/VIT C/BIOTIN 1 TAB TABLET PO SCH (09:01)
[2017-01-14] MEDS: FERROUS SULFATE (325 MG) 325 MG/TAB TABLET PO SCH (09:02)
[2017-01-14] MEDS: FOLIC ACID 1 MG TABLET PO SCH (09:02)
[2017-01-14] MEDS: DIVALPROEX SODIUM 125 MG CAP.SPRINK PO SCH ×2 (09:02→22:06)
[2017-01-14] MEDS: PANTOPRAZOLE 40 MG VIAL IV SCH ×2 (09:02→17:10)
[2017-01-14] MEDS: Z GUARD REMEDY 2 OZ OINT TP SCH (09:02)
[2017-01-14 12:00] VITALS: BP 148/91
[2017-01-14 16:08] VITALS: BP 141/97
[2017-01-14] MEDS ORDERED: BARIUM SULFATE 148 GM SUSP.RECON PO ONE (17:18)
[2017-01-14] MEDS ORDERED: BARIUM SULFATE 240 ML ORAL.SUSP PO ONE (17:18)
--- NOTE | 2017-01-14 19:45 | NUR ---
RN MS OPENING NOTE PT RECEIVED IN NO ACUTE DISTRESS. PT IS A/O X1 AND NOT BALE TO MAKE NEEDS KNOWN. PT IS ON A RENAL DIET. SITTER IS AT BEDSIDE DUE TO PT HX OF PULLING OUT IV LINES AND MORE. PT HAS A LCW HD CATH AND RFA AV SHUNT WELL A LEFT WRIST 20G THAT ARE CLEAN DRY AND INTACT. COMFORT AND SAFETY MEASURES TO BE PLACED DURING THE SHIFT. WILL CONTINUE TO MONITOR FOR ANY CHANGES.
[2017-01-14 20:00] VITALS: BP 114/76
[2017-01-14] MEDS: diphenhydrAMINE HCL 25 MG CAPSULE PO SCH (22:06)
[2017-01-15] MEDS: ALBUTEROL FS 2.5 MG/3 ML VIAL.NEB IH SCH ×6 (03:30→23:44)
[2017-01-15 04:00] VITALS: BP 137/81
--- NOTE | 2017-01-15 05:37 | NUR ---
RN MS CLOSING NOTE PT REMAINS IN NO ACUTE DISTRESS. ATIVAN X1 GIVEN AND TOLERATED WITH NO EPISODES OF AGITATION THROUGHOUT THE SHIFT. ALL DUE MEDICATIONS AND ORDERS CARRIED OUT. COMFORT AND SAFETY MEASURES CARRIED OUT THROUGHOUT THE SHIFT. SITTER AT BEDSIDE MONITORING FOR AGITATION AND POTENTIAL FOR PULLING OUT IV LINES.
[2017-01-15 07:27] LABS: BASOPHILS % (AUTO) 0.7 % (0.0-2.0); EOSINOPHILS # (AUTO) 0.3 /CMM (0.0-0.7); EOSINOPHILS % (AUTO) 4.8 % (0.0-6.0); HEMATOCRIT 23 % (33-45); HEMOGLOBIN 7.8 g/dL (11.5-14.8); LYMPHOCYTES % (AUTO) 15.6 % (20.0-44.0); MEAN CORPUSCULAR HEMOGLOBIN 32 PG (26.0-33.0); MEAN CORPUSCULAR HGB CONC 34 g/dl (31.0-36.0); MEAN CORPUSCULAR VOLUME 96 fL (82-100); MONOCYTES # (AUTO) 0.4 /CMM (0.1-1.30); NEUTROPHILS # (AUTO) 4.7 /CMM (1.8-8.9); NEUTROPHILS % (AUTO) 72.9 % (43.0-81.0); PLATELET COUNT (AUTO) 174 /CMM (150-450); RDW COEFFICIENT OF VARIATION 14.6 (11.5-15.0); RED BLOOD CELL COUNT(AUTO) 2.43 MIL/uL (4.0-5.2); WHITE BLOOD COUNT (AUTO) 6.5 K/uL (4.3-11.0)
[2017-01-15] MEDS: ACETYLCYSTEINE 10% SOLN 400 MG/4 ML VIAL NEB SCH ×3 (07:54→23:44)
[2017-01-15 07:55] LABS: CALCIUM, SERUM 9.1 mg/dL (8.5-10.1); MAGNESIUM 2.2 mg/dL (1.8-2.4); PHOSPHORUS 4.1 mg/dL (2.5-4.9); POTASSIUM 5.1 mmol/L (3.5-5.1)
[2017-01-15 08:00] VITALS: BP 107/74
[2017-01-15 08:02] LABS: CREATININE 7.9 mg/dL (0.6-1.3)
[2017-01-15] MEDS: SEVELAMER CARBONATE 0.8 GM POWD.PACK PO SCH ×4 (08:15→17:58)
[2017-01-15] MEDS: VIT B CMPLX 3/FA/VIT C/BIOTIN 1 TAB TABLET PO SCH (08:16)
[2017-01-15] MEDS: risperiDONE 0.25 MG TABLET PO SCH ×2 (08:16→17:50)
[2017-01-15] MEDS: PANTOPRAZOLE 40 MG VIAL IV SCH ×2 (08:16→17:51)
[2017-01-15] MEDS: Z GUARD REMEDY 2 OZ OINT TP SCH (08:17)
[2017-01-15] MEDS: DIVALPROEX SODIUM 125 MG CAP.SPRINK PO SCH ×2 (08:17→21:28)
[2017-01-15] MEDS: LEVETIRACETAM (250 MG) 250 MG TABLET PO SCH ×2 (08:17→21:28)
[2017-01-15] MEDS: FERROUS SULFATE (325 MG) 325 MG/TAB TABLET PO SCH (08:17)
[2017-01-15] MEDS: FOLIC ACID 1 MG TABLET PO SCH (08:17)
[2017-01-15] MEDS: NIFEdipine XL (30MG) 30 MG TAB PO SCH (08:17)
[2017-01-15] MEDS: HYDROCODONE/APAP 5/325MG 1 EACH TABLET PO PRN (08:36)
[2017-01-15] MEDS: LORAZEPAM INJ 2 MG/ML VIAL IV PRN (10:30)
[2017-01-15 11:23] LABS: IRON, SERUM 59 ug/dl (50-175); TOTAL IRON BINDING CAPACITY 130 ug/dl (250-450)
[2017-01-15] MEDS ORDERED: EPOETIN ALFA (10,000 UNIT) 10,000 UNIT/ML VIAL SQ ONE (15:00)
[2017-01-15 16:00] VITALS: BP 135/68
--- NOTE | 2017-01-15 20:02 | NUR ---
RN MS INITIAL NOTE PATIENT RECEIVED IN BED, SLEEPING. NO S/S OF PAIN OR DISCOMFORT. RESPIRATIONS ARE EVEN AND UNLABORED. SATING WELL ON 3L NASAL CANULA. NO S/S OF RESPIRATORY DISTRESS OR SOB. IV SITE FLUSHED, PATENT. SKIN IS WARM AND DRY TO TOUCH. SAFETY PRECAUTIONS IMPLEMENTED. BED IN LOCKED, LOW POSITION WITH TWO SIDE RAILS UP. CALL LIGHT AND BELONGINGS WITHIN EASY REACH. WILL CONTINUE TO MONITOR.
[2017-01-15] MEDS: diphenhydrAMINE HCL 25 MG CAPSULE PO SCH (21:28)
[2017-01-16] VITALS: BP 128/45
[2017-01-16] MEDS: ALBUTEROL FS 2.5 MG/3 ML VIAL.NEB IH SCH ×6 (03:30→23:44)
--- NOTE | 2017-01-16 06:11 | NUR ---
RN MS CLOSING NOTE PATIENT ENDORSED IN BED, SLEEPING. NO S/S OF PAIN OR DISCOMFORT. RESPIRATIONS ARE EVEN AND UNLABORED. SATING WELL ON 3L NASAL CANULA. NO S/S OF RESPIRATORY DISTRESS OR SOB. IV SITE PULLED OUT BY PT DURING AM CARE, NO BLEEDING OR BRUISING NOTED, DENIES ANY PAIN. SKIN IS WARM AND DRY TO TOUCH. SAFETY PRECAUTIONS IMPLEMENTED. BED IN LOCKED, LOW POSITION WITH TWO SIDE RAILS UP. CALL LIGHT AND BELONGINGS WITHIN EASY REACH. WILL CONTINUE TO MONITOR PT 1:1
--- NOTE | 2017-01-16 07:05 | NUR ---
RN NOTE PATIENT RECEIVED ON BED, ALERT , ON O2 AT 2 L N/C , RESPIRATION EVEN AND UNLABORED, NO SOB NOTED, SITTER AT THE BEDSIDE FOR SAFETY PRECAUTION ,L FA G 22 IV SITE CDI, FLUSHED, PATENT. SKIN IS WARM AND DRY TO TOUCH. LEFT CW HD CATH SITE CDI, R FA AV SHUT WITH POSITIVE TRILL AND BRUIT , BED IN LOCKED AND IN LOWEST POSITION , SIDE RAILS UPx3 . CALL LIGHT WITHIN EASY REACH , WILL CONTINUE TO MONITOR.
[2017-01-16] MEDS: ACETYLCYSTEINE 10% SOLN 400 MG/4 ML VIAL NEB SCH ×3 (07:38→23:44)
[2017-01-16 07:58] LABS: CALCIUM, SERUM 8.9 mg/dL (8.5-10.1); CREATININE 5.7 mg/dL (0.6-1.3); MAGNESIUM 2.1 mg/dL (1.8-2.4); PHOSPHORUS 3.7 mg/dL (2.5-4.9); POTASSIUM 4.6 mmol/L (3.5-5.1)
[2017-01-16 08:00] VITALS: BP 105/75
[2017-01-16] MEDS: FOLIC ACID 1 MG TABLET PO SCH (08:18)
[2017-01-16] MEDS: SEVELAMER CARBONATE 0.8 GM POWD.PACK PO SCH ×3 (08:18→17:24)
[2017-01-16] MEDS: DIVALPROEX SODIUM 125 MG CAP.SPRINK PO SCH ×2 (08:19→21:29)
[2017-01-16] MEDS: risperiDONE 0.25 MG TABLET PO SCH ×2 (08:19→17:24)
[2017-01-16] MEDS: VIT B CMPLX 3/FA/VIT C/BIOTIN 1 TAB TABLET PO SCH (08:19)
[2017-01-16] MEDS: NIFEdipine XL (30MG) 30 MG TAB PO SCH (08:25)
[2017-01-16] MEDS: PANTOPRAZOLE 40 MG VIAL IV SCH ×2 (08:25→17:21)
[2017-01-16] MEDS: LEVETIRACETAM (250 MG) 250 MG TABLET PO SCH ×2 (08:29→21:30)
[2017-01-16] MEDS: FERROUS SULFATE (325 MG) 325 MG/TAB TABLET PO SCH (08:29)
[2017-01-16 08:30] LABS: BASOPHILS % (AUTO) 0.7 % (0.0-2.0); EOSINOPHILS # (AUTO) 0.3 /CMM (0.0-0.7); HEMATOCRIT 21 % (33-45); LYMPHOCYTES % (AUTO) 18.6 % (20.0-44.0); MEAN CORPUSCULAR HEMOGLOBIN 32 PG (26.0-33.0); MEAN CORPUSCULAR HGB CONC 34 g/dl (31.0-36.0); MEAN CORPUSCULAR VOLUME 95 fL (82-100); MONOCYTES # (AUTO) 0.4 /CMM (0.1-1.30); MONOCYTES % (AUTO) 7.3 % (2.0-12.0); NEUTROPHILS # (AUTO) 3.5 /CMM (1.8-8.9); NEUTROPHILS % (AUTO) 68.4 % (43.0-81.0); PLATELET COUNT (AUTO) 194 /CMM (150-450); RDW COEFFICIENT OF VARIATION 14.7 (11.5-15.0); RED BLOOD CELL COUNT(AUTO) 2.15 MIL/uL (4.0-5.2); WHITE BLOOD COUNT (AUTO) 5.2 K/uL (4.3-11.0)
[2017-01-16] MEDS: Z GUARD REMEDY 2 OZ OINT TP SCH (08:31)
[2017-01-16 08:36] LABS: HEMOGLOBIN 6.9 g/dL (11.5-14.8)
--- NOTE | 2017-01-16 09:00 | NUR ---
RN NOTES DR TOMAS NOTIFIED REGARDING H/H 6.12/19. DR TOMAS STATED WE SHOULD ASK DR KHAN, THE RECREATION WORKER REGARDING BLOOD TRANSFUSION . PT STABLE , NO DISTRESS NOTED.
[2017-01-16 09:23] LABS: EOSINOPHILS % (MANUAL) 5 % (0-4); LYMPHOCYTES % (MANUAL) 13 % (16-48); MONOCYTES % (MANUAL) 5 % (0-11.0); NEUTROPHILS % (MANUAL) 77 (42-76)
--- NOTE | 2017-01-16 09:28 | NUR ---
RN NOTES DR CARVALHO OFFICE NOTIFIED REGARDING H/H 6.12/19, SPOKEN WITH MONTRELL , AND WILL BE PAGED AND NOTIFIED PER MONTRELL .
--- NOTE | 2017-01-16 11:58 | NUR ---
RN NOTES DR KHAN ON THE FLOOR SEEN THE PATIENT, NOTIFY REGARDING HEMOGLOBIN 6.9.
[2017-01-16 16:00] VITALS: BP 139/61
--- NOTE | 2017-01-16 18:00 | NUR ---
RN NOTES PATIENT IN STABLE CONDITION THROUGHOUT THE SHIFT, BREATHING EVEN AND UNLABORED AT 2LPM N/C, NO SOB OR ACUTE DISTRESS NOTED. UNCOOPERATIVE AND AGITATED AT TIMES, SITTER AT THE BEDSIDE AT ALL TIMES, SR UP X3, CALL LIGHT W/I EASY REACH, NO SIGNIFICANT CHANGES NOTED IN THIS SHIFT, WILL ENDORSE TO PEOPLE GREETER FOR CONTINUITY OF CARE.
--- NOTE | 2017-01-16 20:00 | NUR ---
RN NOTES RECEIVED PATIENT AWAKE IN BED WITH SITTER AT BEDSIDE. NO RESPIRATORY DISTRESS OR SHORTNESS OF BREATH. BREATHING EVEN AND UNLABORED. NO COMPLAINT OF PAIN. ALERT AND ORIENTED WITH MENTAL RETARDATION. NOTED UNCOOPERATIVE. VITAL SIGNS WNL. WILL CONTINUE TO MONITOR.
[2017-01-16] MEDS: diphenhydrAMINE HCL 25 MG CAPSULE PO SCH (21:27)
[2017-01-17] MEDS: ALBUTEROL FS 2.5 MG/3 ML VIAL.NEB IH SCH ×4 (00:01→19:45)
[2017-01-17] MEDS: ACETYLCYSTEINE 10% SOLN 400 MG/4 ML VIAL NEB SCH ×2 (00:01→15:20)
--- NOTE | 2017-01-17 07:12 | NUR ---
RN INITIAL NOTES: REC'D PT AWAKE ON BED, NOT IN ANY DISTRESS, A/O X2. ON O2 AT 2LPM/NC, NO SOB. HAS L CW HD CATH AND LFA G22 IN PLACE AND INTACT W/ NO S/SX OF INFECTION/ INFILTRATION NOTED. HAS 1:1 SITTER. PROVIDED COMFORT & SAFETY MEASURES. CALL LIGHT PLACED W/IN REACH. BED KEPT LOW & IN LOCKED POS. WILL CONTINUE TO MONITOR AND ATTEND PT NEEDS. PER LENNIE NAVAS RN, PT IS FOR HD TODAY, FOR BT OF 1 UNIT PRBC W/ HD.
[2017-01-17 08:00] VITALS: BP 135/93
[2017-01-17] MEDS: NIFEdipine XL (30MG) 30 MG TAB PO SCH (09:00)
[2017-01-17] MEDS: DIVALPROEX SODIUM 125 MG CAP.SPRINK PO SCH ×2 (09:49→21:03)
[2017-01-17] MEDS: risperiDONE 0.25 MG TABLET PO SCH ×2 (09:49→17:11)
[2017-01-17] MEDS: VIT B CMPLX 3/FA/VIT C/BIOTIN 1 TAB TABLET PO SCH (09:49)
[2017-01-17] MEDS: PANTOPRAZOLE 40 MG VIAL IV SCH ×2 (09:49→17:10)
[2017-01-17] MEDS: FOLIC ACID 1 MG TABLET PO SCH (09:50)
[2017-01-17] MEDS: Z GUARD REMEDY 2 OZ OINT TP SCH (09:50)
[2017-01-17] MEDS: LEVETIRACETAM (250 MG) 250 MG TABLET PO SCH ×2 (09:50→21:02)
[2017-01-17] MEDS: FERROUS SULFATE (325 MG) 325 MG/TAB TABLET PO SCH (09:50)
[2017-01-17] MEDS: SEVELAMER CARBONATE 0.8 GM POWD.PACK PO SCH ×3 (09:52→17:11)
[2017-01-17 10:34] LABS: CREATININE 7.1 mg/dL (0.6-1.3); MAGNESIUM 1.9 mg/dL (1.8-2.4); POTASSIUM 4.4 mmol/L (3.5-5.1)
[2017-01-17 11:26] LABS: BASOPHILS % (AUTO) 0.9 % (0.0-2.0); EOSINOPHILS # (AUTO) 0.3 /CMM (0.0-0.7); EOSINOPHILS % (AUTO) 4.7 % (0.0-6.0); LYMPHOCYTES # (AUTO) 1.1 /CMM (0.8-4.8); LYMPHOCYTES % (AUTO) 20.1 % (20.0-44.0); MEAN CORPUSCULAR HEMOGLOBIN 32 PG (26.0-33.0); MEAN CORPUSCULAR HGB CONC 33 g/dl (31.0-36.0); MEAN CORPUSCULAR VOLUME 97 fL (82-100); MONOCYTES # (AUTO) 0.4 /CMM (0.1-1.30); MONOCYTES % (AUTO) 6.5 % (2.0-12.0); NEUTROPHILS # (AUTO) 3.8 /CMM (1.8-8.9); NEUTROPHILS % (AUTO) 67.8 % (43.0-81.0); PLATELET COUNT (AUTO) 185 /CMM (150-450); RDW COEFFICIENT OF VARIATION 14.4 (11.5-15.0); RED BLOOD CELL COUNT(AUTO) 2.03 MIL/uL (4.0-5.2); WHITE BLOOD COUNT (AUTO) 5.6 K/uL (4.3-11.0)
[2017-01-17 11:37] LABS: HEMATOCRIT 20 % (33-45)
[2017-01-17 11:39] LABS: HEMOGLOBIN 6.4 g/dL (11.5-14.8)
[2017-01-17 13:18] LABS: EOSINOPHILS % (MANUAL) 2 % (0-4); LYMPHOCYTES % (MANUAL) 20 % (16-48); MONOCYTES % (MANUAL) 4 % (0-11.0); NEUTROPHILS % (MANUAL) 74 (42-76)
[2017-01-17 13:55] VITALS: BP 134/77
--- NOTE | 2017-01-17 13:59 | NUR ---
RN NOTES: 1 UNIT OF PRBC STARTED WHILE ON HD C/O DEZ OWEN. WILL MONITOR CLOSELY FOR ANY BT REACTION.
[2017-01-17 14:10] VITALS: BP 131/69
[2017-01-17 14:25] VITALS: BP 132/72
--- NOTE | 2017-01-17 14:45 | NUR ---
RN NOTES: 1 UNIT OF PRBC TRANSFUSED ORDERED WHILE ON HD. NO BLOOD TRANSFUSION REACTION NOTED. PT TOLERATED WELL.
[2017-01-17 16:00] VITALS: BP 104/70
--- NOTE | 2017-01-17 19:00 | NUR ---
RN CLOSING NOTES: NO ACUTE CHANGES NOTED W/IN SHIFT. PT TOLERATED O2 AT 2LPM/NC, NO SOB. L CW HD CATH AND LFA G22 KEPT IN PLACE AND INTACT W/ NO S/SX OF INFECTION/ INFILTRATION NOTED. STILL HAS 1:1 SITTER. PT TOLERATED HD W/ 1800L OUTPUT AND 1 UNIT BT OF PRBC. KEPT WELL RESTED. NEEDS ATTENDED. CALL LIGHT PLACED W/IN REACH. BED KEPT LOW & IN LOCKED POS. WILL ENDORSE TO PM RN FOR [place].
--- NOTE | 2017-01-17 19:30 | NUR ---
MS RN INITIAL NOTE PT RECEIVED SLEEPING IN BED WITH SITTER AT BEDSIDE. A/O X1. ON 2L OF O2 AND SATURATING 97%. BREATHING EVEN, REGULAR AND UNLABORED. HOB ELEVATED AND INCREASED ASPIRATION PRECAUTIONS. IV LFA #22 CLEAN, PATENT AND FLUSHING WELL. LCW HD CATH IN PLACE AND CLEAN. CALL LIGHT WITHIN REACH. WILL CONTINUE TO MONITOR.
[2017-01-17 20:00] VITALS: BP 115/68
[2017-01-17] MEDS: LORAZEPAM INJ 2 MG/ML VIAL IV PRN (20:58)
[2017-01-17] MEDS: diphenhydrAMINE HCL 25 MG CAPSULE PO SCH (21:03)
[2017-01-18] MEDS: ALBUTEROL FS 2.5 MG/3 ML VIAL.NEB IH SCH ×4 (03:30→15:04)
[2017-01-18 04:00] VITALS: BP 133/67
[2017-01-18 06:35] LABS: BASOPHILS % (AUTO) 0.2 % (0.0-2.0); EOSINOPHILS # (AUTO) 0.1 /CMM (0.0-0.7); EOSINOPHILS % (AUTO) 1.2 % (0.0-6.0); HEMATOCRIT 26 % (33-45); HEMOGLOBIN 8.7 g/dL (11.5-14.8); LYMPHOCYTES # (AUTO) 0.8 /CMM (0.8-4.8); LYMPHOCYTES % (AUTO) 8.1 % (20.0-44.0); MEAN CORPUSCULAR HEMOGLOBIN 33 PG (26.0-33.0); MEAN CORPUSCULAR HGB CONC 34 g/dl (31.0-36.0); MEAN CORPUSCULAR VOLUME 97 fL (82-100); MONOCYTES # (AUTO) 0.8 /CMM (0.1-1.30); MONOCYTES % (AUTO) 8.1 % (2.0-12.0); NEUTROPHILS # (AUTO) 7.7 /CMM (1.8-8.9); NEUTROPHILS % (AUTO) 82.4 % (43.0-81.0); PLATELET COUNT (AUTO) 203 /CMM (150-450); RDW COEFFICIENT OF VARIATION 14.6 (11.5-15.0); RED BLOOD CELL COUNT(AUTO) 2.67 MIL/uL (4.0-5.2); WHITE BLOOD COUNT (AUTO) 9.4 K/uL (4.3-11.0)
--- NOTE | 2017-01-18 06:56 | NUR ---
MS RN CLOSING NOTE PT REMAINED STABLE DURING SHIFT. NO SOB NOTED. SITTER AT BEDSIDE AT ALL TIMES. ALL NEEDS ATTENDED TO PROMPTLY. KEPT CLEAN AND DRY. ALL DUE MEDS GIVEN ORDERED AND WELL TOLERATED. NOTED WITH SOME AGITATION AND RESTLESSNESS. ALL SAFETY MEASURES IN PLACE. WILL ENDORSE TO NEXT SHIFT FOR CONTINUITY OF CARE.
--- NOTE | 2017-01-18 07:12 | NUR ---
RN INITIAL NOTES: REC'D PT ASLEEP ON BED, NOT IN ANY DISTRESS, A/O X2. ON O2 AT 2LPM/NC, NO SOB. HAS L CW HD CATH AND LFA G22 IN PLACE AND INTACT W/ NO S/SX OF INFECTION/ INFILTRATION NOTED. HAS 1:1 SITTER. PROVIDED COMFORT & SAFETY MEASURES. CALL LIGHT PLACED W/IN REACH. BED KEPT LOW & IN LOCKED POS. WILL CONTINUE TO MONITOR AND ATTEND PT NEEDS.
[2017-01-18] MEDS: ACETYLCYSTEINE 10% SOLN 400 MG/4 ML VIAL NEB SCH ×2 (07:24→15:04)
[2017-01-18 08:00] VITALS: BP 111/61
[2017-01-18] MEDS: FERROUS SULFATE (325 MG) 325 MG/TAB TABLET PO SCH (08:35)
[2017-01-18] MEDS: LEVETIRACETAM (250 MG) 250 MG TABLET PO SCH (08:35)
[2017-01-18] MEDS: SEVELAMER CARBONATE 0.8 GM POWD.PACK PO SCH ×2 (08:35→12:16)
[2017-01-18] MEDS: PANTOPRAZOLE 40 MG VIAL IV SCH (08:35)
[2017-01-18] MEDS: FOLIC ACID 1 MG TABLET PO SCH (08:36)
[2017-01-18] MEDS: risperiDONE 0.25 MG TABLET PO SCH (08:36)
[2017-01-18] MEDS: DIVALPROEX SODIUM 125 MG CAP.SPRINK PO SCH (08:36)
[2017-01-18 08:37] VITALS: BP 111/61
[2017-01-18] MEDS: Z GUARD REMEDY 2 OZ OINT TP SCH (08:37)
[2017-01-18] MEDS: NIFEdipine XL (30MG) 30 MG TAB PO SCH (08:37)
[2017-01-18] MEDS: VIT B CMPLX 3/FA/VIT C/BIOTIN 1 TAB TABLET PO SCH (08:38)
[2017-01-18] MEDS ORDERED: VIT1TABL44 PO (12:43)
[2017-01-18] MEDS ORDERED: DIVA125C PO (12:43)
--- NOTE | 2017-01-18 12:57 | NUR ---
RN NOTES: PER DR. TOMAS, PT TO BE DC TO HOME PER FAMILY REQUEST. CALLED PT'S MOTHER PAULA AND CONFIRMED THAT SHE WANTED HER DAUGHTER TO BE DC TO HOME. 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 DR. TOMAS MADE AWARE THAT PT HAD LOW GRADE FEVER T 99.9`F THIS AM.
[2017-01-18] MEDS: ACETAMINOPHEN 325 MG TABLET PO PRN (13:11)
--- NOTE | 2017-01-18 13:39 | NUR ---
RN NOTES: TEMP AT 102.6`F, DR. TOMAS MADE AWARE. PER MD STILL FOR DC TODAY. COOLING MEASURES RENDERED. TYLENOL GIVEN. WILL CONTINUE TO MONITOR.
--- NOTE | 2017-01-18 15:58 | NUR ---
SANDBLASTER GLASS NOTES: PT DC'D TO HOME (PER FAMILY'S REQUEST) ORDERED. DC INSTRUCTIONS AND DOCUMENTS GIVEN TO PT'S MOTHER PAULA. SPECIAL EMPHASIS PUT ON PT'S CURRENT DIET TO FOLLOW STRICT ASPIRATION PRECAUTION AND W/ VERBALIZATION OF UNDERSTANDING. ALL DC PAPERWORKS INCLUDING BELONGING LIST SIGNED BY PAULA. NEW PRESCRIPTION CALLED AND CONFIRMED TO PT'S PHARMACY ([facility]), SPOKE W/ MIQUEL. NO CONCERNS IDENTIFIED AT THIS TIME. PT LEFT FACILITY IN STABLE CONDITION, CURRENT TEMPERATURE AT 99`F AND NOT IN ANY DISTRESS WHILE ON ROOM AIR. DR. CHANEL SEEN AND EXAMINED PT PRIOR TO DC. PT DC'D VIA WHEELCHAIR ACCOMPANIED BY PAULA AND LORETTA. Addendum: 01/18/17 at 1615 by SIMA PIERRE RN ADDENDUM: SPECIAL EMPHASIS PUT ON HD CATHETER ON LCW AND ALSO PT'S CURRENT DIET TO FOLLOW STRICT ASPIRATION PRECAUTION W/ VERBALIZATION OF UNDERSTANDING.
== END 2017-01-18 16:45 | disposition home or self-care (01) | DRG 981 ==
LOC: ER 11:17 → MED 14:12 → TELE-TD 01-06 21:16 → TELE1 01-07 10:11 → MEDSG1 01-07 11:05
PROVIDERS: ADMIT Internal Medicine Nephrology; ATTEND Internal Medicine
PROC: 5A1D70Z Performance of Urinary Filtration, Intermittent, Less than 6 Hours Per Day (ICD-10-PCS; 2016-12-30)
PROC: 30233N1 Transfusion of Nonautologous Red Blood Cells into Peripheral Vein, Percutaneous Approach (ICD-10-PCS; 2017-01-03)
PROC: 06HN33Z Insertion of Infusion Device into Left Femoral Vein, Percutaneous Approach (ICD-10-PCS; 2017-01-04)
PROC: B54CZZA Ultrasonography of Left Lower Extremity Veins, Guidance (ICD-10-PCS; 2017-01-04)
PROC: 05PYX3Z Removal of Infusion Device from Upper Vein, External Approach (ICD-10-PCS; 2017-01-06)
PROC: 05HN33Z Insertion of Infusion Device into Left Internal Jugular Vein, Percutaneous Approach (ICD-10-PCS; 2017-01-06)
PROC: B514YZA Fluoroscopy of Left Jugular Veins using Other Contrast, Guidance (ICD-10-PCS; 2017-01-06)
PROC: 031C0ZF Bypass Left Radial Artery to Lower Arm Vein, Open Approach (ICD-10-PCS; principal; 2017-01-06 11:30)
PROC: 05H633Z Insertion of Infusion Device into Left Subclavian Vein, Percutaneous Approach (ICD-10-PCS; 2017-01-09)
PROC: 0DB98ZX Excision of Duodenum, Via Natural or Artificial Opening Endoscopic, Diagnostic (ICD-10-PCS; 2017-01-10)
PROC: 0DB68ZX Excision of Stomach, Via Natural or Artificial Opening Endoscopic, Diagnostic (ICD-10-PCS; 2017-01-10)
DX: J15.9 Unspecified bacterial pneumonia (principal); G93.40 Encephalopathy, unspecified; I13.2 Hypertensive heart and chronic kidney disease with heart failure and with stage 5 chronic kidney disease, or end stage renal disease; J90 Pleural effusion, not elsewhere classified; R53.2 Functional quadriplegia; N18.6 End stage renal disease; K92.2 Gastrointestinal hemorrhage, unspecified; T82.41XA Breakdown (mechanical) of vascular dialysis catheter, initial encounter; E87.1 Hypo-osmolality and hyponatremia; J98.19 Other pulmonary collapse; J98.11 Atelectasis; I50.9 Heart failure, unspecified; E87.5 Hyperkalemia; E87.70 Fluid overload, unspecified; Z99.2 Dependence on renal dialysis; G80.9 Cerebral palsy, unspecified; D63.1 Anemia in chronic kidney disease; F41.9 Anxiety disorder, unspecified; Z87.01 Personal history of pneumonia (recurrent); R53.1 Weakness; E83.9 Disorder of mineral metabolism, unspecified; Y84.9 Medical procedure, unspecified as the cause of abnormal reaction of the patient, or of later complication, without mention of misadventure at the time of the procedure; Y92.009 Unspecified place in unspecified non-institutional (private) residence as the place of occurrence of the external cause; F29 Unspecified psychosis not due to a substance or known physiological condition; K29.80 Duodenitis without bleeding; K31.7 Polyp of stomach and duodenum; F79 Unspecified intellectual disabilities; J40 Bronchitis, not specified as acute or chronic; R13.10 Dysphagia, unspecified; Y71.2 Prosthetic and other implants, materials and accessory cardiovascular devices associated with adverse incidents; Z79.899 Other long term (current) drug therapy; E02 Subclinical iodine-deficiency hypothyroidism
CPT/HCPCS: 31720; 36415; 36569; 71010-TC; 71260-TC; 74230-TC; 80048-TC; 80053-TC; 80061-TC; 82272-TC; 83540-TC; 83735-TC; 84100-TC; 84439-TC; 84443-TC; 84480; 84484-TC; 85025-TC; 85027-TC; 85730-TC; 86850-TC; 86921-TC; 87040-TC; 87070-TC; 87081-TC; 87400; 88305-TC; 88312-TC; 88313-TC; 88342; 90935-TC; 92526; 92611-TC; 93307-TC; 93930-TC; 94799-TC; A4606; A6402; A6403; C1750; C1769; C9113; J0456; J0885; J1200; J1642; J1644; J2060; J2405; J2704; J2997; J3010; J3490; J7030; J7040; J7050; J7060; P9016-BL; Q0163; Q2036; Q9967; Z7610

== ENCOUNTER 2017-01-19 18:57 | Inpatient (IN) | payer BC, OTHER ==
[~2017-01-19] VITALS: Ht 152.4 cm; Wt 56.7 kg
[~2017-01-19 18:57] MED LIST changes: +DIVA125C PO; +VIT1TABL44 PO
--- NOTE | 2017-01-19 19:15 | NUR ---
26 YO FELMALE BIB MOTHER TO ER BED 2 VIA WHEELCHAIR. PT MOTHER STATES PT DISCHARGED FROM THE HOSPITAL YESTERDAY FOR PNEUMONIA, STATES PT WAS STARTED RUNNING A FEVER OD 103 AT HOME THIS AFTERNOON. PT IS NONVERBAL, ATTEMPTS TO FOLLOW VERBAL COMMANDS. PT VSS/RESP EVEN AND UNLABORED/NAD NOTED. PT SKIN WARM AND DRY.
--- NOTE | 2017-01-19 19:20 | NUR ---
20G IV TO LAC USING ASEPTIC TECH, BLOOD SAMPLE/BLOOD CULTURES X 2 OBTAINED. LAB AT BEDSIDE. SALINE LOCK PER MD ORDERS. PT TOLERATED PROCEDURE WELL.
[2017-01-19] MEDS ORDERED: ACETAMINOPHEN 650 MG/SUPP.RECT RC ONE ×2 (19:40→20:00)
--- NOTE | 2017-01-19 19:52 | NUR ---
MEDICATED ORDERED PER MD. MOTHER AT BEDSIDE. WILL CONTINUE TO PROVIDE SAFETY AND COMFORT MEASURES.
[2017-01-19 20:18] LABS: INR 1.32 (0.87-1.13); PROTHROMBIN TIME 13.8 SECS (9.5-12.7)
[2017-01-19 20:20] LABS: ALANINE AMINOTRANSFERASE 15 U/L (12-78); ALBUMIN 2.8 g/dL (3.4-5.0); ALKALINE PHOSPHATASE 133 U/L (46-116); ASPARTATE AMINOTRANSFERASE 17 U/L (15-37); BILIRUBIN,DIRECT 0.2 mg/dL (0.0-0.2); BILIRUBIN,TOTAL 0.8 mg/dL (0.2-1.0); CALCIUM, SERUM 9.7 mg/dL (8.5-10.1); CARBON DIOXIDE 29 mmol/L (21-32); CHLORIDE 100 mmol/L (98-107); GLUCOSE 116 mg/dL (74-106); POTASSIUM 5.3 mmol/L (3.5-5.1); SODIUM SERUM 139 mmol/L (136-145); TOTAL PROTEIN, SERUM 7.5 g/dL (6.4-8.2); TROPONIN I < 0.017 ng/mL (0.00-0.056); UREA NITROGEN, BLOOD 55 mg/dL (7-18)
[2017-01-19 20:23] LABS: CREATININE 8.1 mg/dL (0.6-1.3)
[2017-01-19 20:44] LABS: BASOPHILS % (AUTO) 0.1 % (0.0-2.0); EOSINOPHILS % (AUTO) 0.1 % (0.0-6.0); HEMATOCRIT 24 % (33-45); LYMPHOCYTES # (AUTO) 0.8 /CMM (0.8-4.8); MEAN CORPUSCULAR HEMOGLOBIN 33 PG (26.0-33.0); MEAN CORPUSCULAR HGB CONC 34 g/dl (31.0-36.0); MEAN CORPUSCULAR VOLUME 100 fL (82-100); MONOCYTES # (AUTO) 1.4 /CMM (0.1-1.30); MONOCYTES % (AUTO) 8.2 % (2.0-12.0); NEUTROPHILS # (AUTO) 14.6 /CMM (1.8-8.9); NEUTROPHILS % (AUTO) 86.6 % (43.0-81.0); PLATELET COUNT (AUTO) 201 /CMM (150-450); WHITE BLOOD COUNT (AUTO) 16.8 K/uL (4.3-11.0)
--- NOTE | 2017-01-19 20:47 | NUR ---
PT BP 82/46 REPORTED TO , NEW ORDERS RECIEVED.
--- NOTE | 2017-01-19 20:53 | NUR ---
IV BOLUS STARTED ORDERED BY MD.
[2017-01-19] MEDS ORDERED: PIPERACILLIN /TAZOBACTAM 3.375 G VIAL IV ONE (20:56)
[2017-01-19] MEDS ORDERED: VANCOMYCIN 1 GM VIAL ONE (20:56)
[2017-01-19] MEDS ORDERED: IV NS 0.9% 1,000 ML BAG IV ONE (21:00)
[2017-01-19] MEDS ORDERED: VANCOMYCIN 1 GM in IV D5W 250 ML IV ONE (21:00)
[2017-01-19] MEDS ORDERED: PIPERACILLIN /TAZOBACTAM 3.375 G in IV D5W 50 ML IV ONE (21:00)
[2017-01-19] MEDS ORDERED: ALBUTEROL FS 2.5 MG/3 ML VIAL.NEB IH PRN (21:30)
[2017-01-19] MEDS ORDERED: HYDROCODONE/APAP 5/325MG 1 EACH TABLET PO PRN (21:30)
[2017-01-19] MEDS ORDERED: Z GUARD REMEDY 2 OZ OINT TP PRN (21:30)
[2017-01-19] MEDS ORDERED: MAGNESIUM HYDROXIDE 30 ML UDC PO PRN (21:30)
[2017-01-19] MEDS ORDERED: ZOLPIDEM TARTRATE 5 MG TABLET PO PRN (21:30)
[2017-01-19] MEDS ORDERED: ONDANSETRON HCL/PF 4 MG/2 ML VIAL IVP PRN (21:30)
[2017-01-19] MEDS ORDERED: MAG HYDROX/AL HYDROX/SIMETH 30 ML UDC PO PRN (21:30)
--- NOTE | 2017-01-19 21:33 | NUR ---
PT MEDICATED ORDERED BY . MOTHER AT BEDSIDE, CONTINUING TO PROVIDE COMFORT AND SAFETY MEASURES FOR PT. VSS, RESP EVEN AND UNLABORED.
--- NOTE | 2017-01-19 21:44 | NUR ---
PT BEING ADMITTED TO [facility] BED 101, REORT GIVEN TO JUAN ANTONIO.
--- NOTE | 2017-01-19 21:55 | NUR ---
[facility] RN OPENING NOTES: RECEIVED PATIENT FROM ER AWAKE ALERT AND ORIENTED TO NAME AND PERSON. PATIENT ABLE TO VERBALIZE BUT WITH GARBLED WORDS. PATIENT ABLE TO FOLLOW SIMPLE COMMANDS. MOTHER (PRIMARY CAREGIVER) AT BEDSIDE PROVIDED INFORMATION AND HISTORY OF PATIENT. VERIFIES PATIENT IS FULL CODE. PLACED ON O2 THERAPY PLACED AT 2-3 LPM. IV ACCESS ON LEFT AC, G20 INTACT. VANCOMYCIN INFUSING. SKIN CHECK WITH MARVIN RN. PHOTODOCUMENTATION OF SKIN ISSUES FILED. PATIENT'S MOTHER REPORTS HER TO BE ANURIC. SAFETY MEASURES ENSURED. CONTINUOUSLY MONITORED CLOSELY. 2300 PATIENT IS HIGH RISK FOR FALL WELL HER MOM REPORTED SHE WOULD FALL LIKE 2X A WEEK AT HOME. PATIENT;S MOTHER CANNOT STAY OVER SHE HAS WORK TOMORROW. PATIENT ALSO TRIES TO PULL OUT HER HEART MONITOR. DR MUELLER IN SEEN AND EXAMINED PATIENT. ABLE TO OBTAIN SITTER ORDER FOR PATIENT.
[2017-01-19] MEDS ORDERED: diphenhydrAMINE HCL 25 MG CAPSULE ONE (22:22)
[2017-01-19] MEDS: diphenhydrAMINE HCL 25 MG CAPSULE PO SCH (22:34)
[2017-01-20] VITALS: BP 101/50
[2017-01-20 04:00] VITALS: BP 98/58
--- NOTE | 2017-01-20 06:42 | NUR ---
RN CLOSING NOTES: PATIENT REMAINED IN BED NOT IN APPARENT DISTRESS. KEPT ON O2 THERAPY, TOLERATED WELL. IV ACCESS REMAINED INTACT, KEPT SL. SITTER AT BEDSIDE. MONITORED FOR FEBRILE EPISODES. AM LABS DRAWN, RESULTS PENDING. SAFETY MEASURES ENSURED AT ALL TIMES. CONTINUOUSLY MONITORED. TO ENDORSE TO AM SHIFT RN.
[2017-01-20 06:44] LABS: CALCIUM, SERUM 8.9 mg/dL (8.5-10.1); CREATININE 8.3 mg/dL (0.6-1.3); PHOSPHORUS 4.2 mg/dL (2.5-4.9); POTASSIUM 5.5 mmol/L (3.5-5.1)
[2017-01-20 08:00] VITALS: BP 100/60
--- NOTE | 2017-01-20 08:06 | NUR ---
WOUND CARE CONSULT PATIENT SEEN AND SKIN ASSESSED. PATIENT NOTED TO HAVE STAGE 2 ON SACRUM, POA, AND MULTIPLE DRY SCABS IN HEALING STAGES. WOUND TREATMENT ORDERED AND DISCUSSED WITH NURSING STAFF AT THE BEDSIDE. PATIENT BRENDA Joshi; NEEDS MINOR ASSISTANCE WITH TURNING AND REPOSITIONING. PT ON FIRST STEP LOW AIR LOSS MATTRESS. MD IN AGREEMENT WITH TREATMENT PLAN. WILL CONTINUE TO FOLLOW PATIENT NEEDED. Addendum: 01/20/17 at 0809 by SARA SOLOMON RN Amended: Links added. Addendum: 01/20/17 at 1037 by SARA SOLOMON RN PATIENT ON ISOFLEX AIR MATTRESS NOT LOW AIR LOSS.
[2017-01-20] MEDS ORDERED: SEVELAMER CARBONATE 800 MG TABLET PO SCH (08:21)
[2017-01-20 08:45] LABS: BASOPHILS # (AUTO) 0.1 /CMM (0.0-0.2); BASOPHILS % (AUTO) 0.3 % (0.0-2.0); EOSINOPHILS % (AUTO) 0.3 % (0.0-6.0); HEMATOCRIT 25 % (33-45); HEMOGLOBIN 8.2 g/dL (11.5-14.8); LYMPHOCYTES # (AUTO) 0.9 /CMM (0.8-4.8); LYMPHOCYTES % (AUTO) 5.2 % (20.0-44.0); MEAN CORPUSCULAR HEMOGLOBIN 33 PG (26.0-33.0); MEAN CORPUSCULAR HGB CONC 33 g/dl (31.0-36.0); MEAN CORPUSCULAR VOLUME 98 fL (82-100); MONOCYTES # (AUTO) 1.4 /CMM (0.1-1.30); MONOCYTES % (AUTO) 8.3 % (2.0-12.0); NEUTROPHILS # (AUTO) 14.9 /CMM (1.8-8.9); NEUTROPHILS % (AUTO) 85.9 % (43.0-81.0); PLATELET COUNT (AUTO) 172 /CMM (150-450); RDW COEFFICIENT OF VARIATION 15.1 (11.5-15.0); RED BLOOD CELL COUNT(AUTO) 2.53 MIL/uL (4.0-5.2); WHITE BLOOD COUNT (AUTO) 17.3 K/uL (4.3-11.0)
[2017-01-20] MEDS: VIT B CMPLX 3/FA/VIT C/BIOTIN 1 TAB TABLET PO SCH (09:06)
[2017-01-20] MEDS: DIVALPROEX SODIUM 125 MG CAP.SPRINK PO SCH ×2 (09:06→21:33)
[2017-01-20] MEDS: FERROUS SULFATE (325 MG) 325 MG/TAB TABLET PO SCH (09:06)
[2017-01-20] MEDS: risperiDONE 0.25 MG TABLET PO SCH ×2 (09:07→18:07)
[2017-01-20] MEDS: LEVETIRACETAM (250 MG) 250 MG TABLET PO SCH ×2 (09:07→21:33)
[2017-01-20] MEDS: FOLIC ACID 1 MG TABLET PO SCH (09:07)
[2017-01-20] MEDS: HYDROGEL DRESSING 90 GM TUBE TP SCH (09:08)
[2017-01-20] MEDS: SEVELAMER CARBONATE 0.8 GM POWD.PACK PO SCH ×3 (09:17→18:12)
[2017-01-20] MEDS: ACETAMINOPHEN 325 MG TABLET PO PRN (09:18)
[2017-01-20] MEDS ORDERED: FEE PK DOSING 1 MIN EA MC ONE (09:27)
[2017-01-20] MEDS ORDERED: VANCOMYCIN 500 MG in IV D5W 100 ML IV PRN (09:30)
--- NOTE | 2017-01-20 10:45 | NUR ---
RN NOTE DR. RODRIGUEZ AT NURSES STATION AWARE OF HYPERKALEMIA 5.5 AND POOR NUTRITIONAL INTAKE WITH HIGH ASPIRATION RISK. HOB >35 DEGREES AT ALL TIMES ORDERED. SITTER AT BEDSIDE.
[2017-01-20] MEDS: PIPERACILLIN /TAZOBACTAM 2.25 G in IV D5W 50 ML IV SCH ×2 (12:03→21:33)
--- NOTE | 2017-01-20 14:30 | NUR ---
RN NOTE DR. MOBLEY MADE FRAZIER OF GRAM + COCCI CLUSTER GROWING IN BLOOD AND MADE AWARE OF PROCALCITONIN 4.84.
--- NOTE | 2017-01-20 15:28 | NUR ---
RN NOTE SPOKE TO PATIENT'S MOTHER SLOAN ON THE PHONE- PROVIDED UPDATES ON PATIENT STATUS- CURRENTLY LETHARGIC, FOLLOWS SIMPLE COMMANDS.
[2017-01-20 16:00] VITALS: BP 121/61
--- NOTE | 2017-01-20 19:05 | NUR ---
RN OPENING NOTES RECEIVED REPORT FROM NATHAN OWEN. PATIENT A/O X1 W/ SOME CONFUSION. BREATHING EVEN & UNLABORED, ON O2 2L VIA NC. NO RESPIRATORY DISTRESS NOTED. PULSES PRESENT. NO DISTRESS NOTED. LEFT CHEST WALL HD CATH INTACT W/ DRESSING CDI. LEFT AC IV #20 INTACT & PATENT W/ DRESSING CDI, ON SALINE LOCK. NO S/S OF PAIN OR DISCOMFORT @ THIS TIME. SAFETY MEASURES IN PLACE W/ SIDE RAILS UP, BED LOCKED IN LOWEST POSITION, CALL LIGHT WITHIN REACH. SITTER REMAINS @ BEDSIDE. WILL CONTINUE TO MONITOR.
--- NOTE | 2017-01-20 19:12 | NUR ---
end of shift no acute change of condition. breathing even and unlabored with 3l o2 NC. vs stable, afebrile remainder of shift. no injury. no new skin break down. patient making some noise, incomprehensible words, not in distress. sitter at bed side this shift. repositioned q2h. lac iv patent, no complications. noted drainage at HD cath site- cultured. pending response from dr. Plascencia about infection tx plan of care- will endorse to next shift. consumed 30-50% of meals today. HD removal today 2L out. call light in reach,.
[2017-01-20 20:00] VITALS: BP 91/37
[2017-01-20] MEDS: diphenhydrAMINE HCL 25 MG CAPSULE PO SCH (21:34)
[2017-01-21] VITALS (10 sets, daily range): BP systolic 83–99; BP diastolic 38–65
[2017-01-21] MEDS: PIPERACILLIN /TAZOBACTAM 2.25 G in IV D5W 50 ML IV SCH ×3 (04:06→20:35)
[2017-01-21] MEDS: ACETAMINOPHEN 325 MG TABLET PO PRN ×2 (04:06→20:35)
--- NOTE | 2017-01-21 07:05 | NUR ---
RN INITIAL NOTE PATIENT RECEIVED IN BED RESTING, AWAKE, ALERT SMILES BUT WILL NOT RESPOND. NO S/S OF PAIN OR DISCOMFORT. PATIENT DENIES PAIN AT THIS TIME. RESPIRATIONS ARE EVEN AND UNLABORED. SATING WELL ON 2L NASAL CANULA. NO S/S OF RESPIRATORY DISTRESS OR SOB. SKIN IS WARM AND DRY TO TOUCH. IV SITE FLUSHED AND PATENT. [place] CATHETER DRAINING TO GRAVITY. SAFETY PRECAUTIONS IMPLEMENTED, BED IN LOCKED LOW POSITION WITH TWO SIDE RAILS UP. SITTER AT BEDSIDE. WILL CONTINUE TO MONITOR.
[2017-01-21 07:16] LABS: BASOPHILS % (AUTO) 0.3 % (0.0-2.0); EOSINOPHILS # (AUTO) 0.1 /CMM (0.0-0.7); EOSINOPHILS % (AUTO) 1.4 % (0.0-6.0); LYMPHOCYTES # (AUTO) 0.9 /CMM (0.8-4.8); LYMPHOCYTES % (AUTO) 10.5 % (20.0-44.0); MEAN CORPUSCULAR HEMOGLOBIN 32 PG (26.0-33.0); MEAN CORPUSCULAR HGB CONC 33 g/dl (31.0-36.0); MEAN CORPUSCULAR VOLUME 99 fL (82-100); MONOCYTES # (AUTO) 1.1 /CMM (0.1-1.30); MONOCYTES % (AUTO) 13.5 % (2.0-12.0); NEUTROPHILS # (AUTO) 6.1 /CMM (1.8-8.9); NEUTROPHILS % (AUTO) 74.3 % (43.0-81.0); PLATELET COUNT (AUTO) 137 /CMM (150-450); RDW COEFFICIENT OF VARIATION 15.8 (11.5-15.0); RED BLOOD CELL COUNT(AUTO) 2.04 MIL/uL (4.0-5.2); WHITE BLOOD COUNT (AUTO) 8.2 K/uL (4.3-11.0)
--- NOTE | 2017-01-21 07:16 | NUR ---
RN CLOSING NOTES PATIENT RESTING COMFORTABLY IN BED. NO ACUTE RESPIRATORY DISTRESS. NO SIGNIFICANT CHANGES DURING SHIFT. LEFT CHEST WALL HD CATH DRESSING CHANGED. ALL DUE MEDS GIVEN. SAFETY MEASURES IN PLACE W/ SITTER @ BEDSIDE. WILL ENDORSE [place] TO ONCOMING NURSE.
[2017-01-21 07:29] LABS: HEMOGLOBIN 6.6 g/dL (11.5-14.8)
[2017-01-21 07:30] LABS: HEMATOCRIT 20 % (33-45)
[2017-01-21 07:54] LABS: CALCIUM, SERUM 8.8 mg/dL (8.5-10.1); CREATININE 6.4 mg/dL (0.6-1.3); MAGNESIUM 1.9 mg/dL (1.8-2.4); PHOSPHORUS 3.1 mg/dL (2.5-4.9); POTASSIUM 4.1 mmol/L (3.5-5.1)
[2017-01-21 08:25] LABS: BAND % (MANUAL) 2 % (0.0-5.0); EOSINOPHILS % (MANUAL) 3 % (0-4); LYMPHOCYTES % (MANUAL) 12 % (16-48); MONOCYTES % (MANUAL) 10 % (0-11.0); NEUTROPHILS % (MANUAL) 73 (42-76)
[2017-01-21] MEDS: FOLIC ACID 1 MG TABLET PO SCH (08:49)
[2017-01-21] MEDS: FERROUS SULFATE (325 MG) 325 MG/TAB TABLET PO SCH (08:49)
[2017-01-21] MEDS: VIT B CMPLX 3/FA/VIT C/BIOTIN 1 TAB TABLET PO SCH (08:49)
[2017-01-21] MEDS: risperiDONE 0.25 MG TABLET PO SCH ×2 (08:49→17:16)
[2017-01-21] MEDS: HYDROGEL DRESSING 90 GM TUBE TP SCH (08:49)
[2017-01-21] MEDS: SEVELAMER CARBONATE 0.8 GM POWD.PACK PO SCH ×3 (08:49→17:16)
[2017-01-21] MEDS: LEVETIRACETAM (250 MG) 250 MG TABLET PO SCH ×2 (08:49→20:35)
[2017-01-21] MEDS: DIVALPROEX SODIUM 125 MG CAP.SPRINK PO SCH ×2 (08:49→20:35)
[2017-01-21 09:26] LABS: IRON, SERUM 11 ug/dl (50-175); TOTAL IRON BINDING CAPACITY 87 ug/dl (250-450)
[2017-01-21] MEDS ORDERED: IV NS 0.9% 1,000 ML BAG IV PRN (09:30)
[2017-01-21] MEDS ORDERED: IV NS 0.9% 500 ML IV ONE (09:30)
[2017-01-21 09:38] LABS: BASOPHILS % (AUTO) 0.1 % (0.0-2.0); EOSINOPHILS # (AUTO) 0.1 /CMM (0.0-0.7); EOSINOPHILS % (AUTO) 1.4 % (0.0-6.0); LYMPHOCYTES # (AUTO) 1.2 /CMM (0.8-4.8); LYMPHOCYTES % (AUTO) 12.1 % (20.0-44.0); MEAN CORPUSCULAR HEMOGLOBIN 33 PG (26.0-33.0); MEAN CORPUSCULAR HGB CONC 34 g/dl (31.0-36.0); MEAN CORPUSCULAR VOLUME 99 fL (82-100); MONOCYTES # (AUTO) 1.5 /CMM (0.1-1.30); MONOCYTES % (AUTO) 15.9 % (2.0-12.0); NEUTROPHILS # (AUTO) 6.7 /CMM (1.8-8.9); NEUTROPHILS % (AUTO) 70.5 % (43.0-81.0); PLATELET COUNT (AUTO) 147 /CMM (150-450); RED BLOOD CELL COUNT(AUTO) 2.07 MIL/uL (4.0-5.2); WHITE BLOOD COUNT (AUTO) 9.5 K/uL (4.3-11.0)
[2017-01-21 09:45] LABS: HEMATOCRIT 20 % (33-45); HEMOGLOBIN 6.8 g/dL (11.5-14.8)
[2017-01-21] MEDS: IV NS 0.9% 1,000 ML IV PRN (11:48)
--- NOTE | 2017-01-21 18:50 | NUR ---
RN CLOSING NOTE CARRIED OUT ALL MD ORDERS, KEPT PATIENT CLEAN AND DRY. SAFETY PRECAUTIONS IN PLACE AT ALL TIMES. WILL GIVE REPORT TO PM RN FOR [place].
--- NOTE | 2017-01-21 19:05 | NUR ---
RN OPENING NOTES RECEIVED REPORT FROM SIMA OWEN. PATIENT A/O X1 W/ SOME CONFUSION & GARBLED SPEECH. BREATHING EVEN & UNLABORED, ON O2 2L VIA NC. NO RESPIRATORY DISTRESS NOTED. PULSES PRESENT. NO DISTRESS NOTED. LEFT CHEST WALL HD CATH INTACT W/ DRESSING CDI. LEFT AC IV #20 INTACT & PATENT W/ DRESSING CDI, ON SALINE LOCK. NO S/S OF PAIN OR DISCOMFORT @ THIS TIME. SAFETY MEASURES IN PLACE W/ SIDE RAILS UP, BED LOCKED IN LOWEST POSITION, CALL LIGHT WITHIN REACH. SITTER REMAINS @ BEDSIDE. WILL CONTINUE TO MONITOR.
[2017-01-21 20:06] LABS: HEMOGLOBIN 7.3 g/dL (11.5-14.8)
[2017-01-21] MEDS: diphenhydrAMINE HCL 25 MG CAPSULE PO SCH (21:18)
[2017-01-22] VITALS (8 sets, daily range): BP systolic 100–149; BP diastolic 37–88
--- NOTE | 2017-01-22 01:46 | NUR ---
RN NOTES 2ND UNIT PRBC TRANSFUSION STARTED. NO INITIAL REACTIONS NOTED. WILL CONTINUE TO MONITOR.
--- NOTE | 2017-01-22 04:25 | NUR ---
RN NOTES BLOOD TRANSFUSION COMPLETED. NO ADVERSE REACTIONS NOTED. PATIENT TOLERATED WELL.
[2017-01-22] MEDS: PIPERACILLIN /TAZOBACTAM 2.25 G in IV D5W 50 ML IV SCH ×3 (05:05→20:17)
--- NOTE | 2017-01-22 07:05 | NUR ---
RN INITIAL NOTE PATIENT RECEIVED IN BED RESTING, AWAKE AND ALERT. PATIENT WILL NOT RESPOND TO QUESTIONS. SITTER AT BEDSIDE. IV SITE FLUSHED, PATENT. SKIN IS WARM AND DRY TO TOUCH. RESPIRATIONS ARE EVEN AND UNLABORED. NO S/S OF RESPIRATORY DISTRESS OR SOB. SATING WELL ON 3L NASAL CANULA. PATIENT SCHEDULED FOR HD TODAY. SAFETY PRECAUTIONS IMPLEMENTED, BED IN LOCKED, LOW POSITION WITH TWO SIDE RAILS UP. WILL CONTINUE TO MONITOR CLOSELY.
--- NOTE | 2017-01-22 07:23 | NUR ---
RN CLOSING NOTES PATIENT RESTING COMFORTABLY IN BED. NO ACUTE RESPIRATORY DISTRESS. NO SIGNIFICANT CHANGES DURING SHIFT. TOLERATED BLOOD TRANSFUSION WELL. ALL DUE MEDS GIVEN. SAFETY MEASURES IN PLACE W/ SITTER @ BEDSIDE. WILL ENDORSE [place] TO ONCOMING NURSE.
[2017-01-22] MEDS: SEVELAMER CARBONATE 0.8 GM POWD.PACK PO SCH ×3 (08:03→17:55)
[2017-01-22] MEDS: risperiDONE 0.25 MG TABLET PO SCH ×2 (08:04→17:55)
[2017-01-22] MEDS: VIT B CMPLX 3/FA/VIT C/BIOTIN 1 TAB TABLET PO SCH (08:04)
[2017-01-22] MEDS: FERROUS SULFATE (325 MG) 325 MG/TAB TABLET PO SCH (08:04)
[2017-01-22] MEDS: DIVALPROEX SODIUM 125 MG CAP.SPRINK PO SCH ×2 (08:04→20:18)
[2017-01-22] MEDS: HYDROGEL DRESSING 90 GM TUBE TP SCH (08:04)
[2017-01-22] MEDS: LEVETIRACETAM (250 MG) 250 MG TABLET PO SCH ×2 (08:04→20:18)
[2017-01-22] MEDS: FOLIC ACID 1 MG TABLET PO SCH (08:04)
[2017-01-22 09:48] LABS: BASOPHILS % (AUTO) 0.5 % (0.0-2.0); EOSINOPHILS # (AUTO) 0.2 /CMM (0.0-0.7); HEMATOCRIT 26 % (33-45); HEMOGLOBIN 8.4 g/dL (11.5-14.8); LYMPHOCYTES # (AUTO) 0.6 /CMM (0.8-4.8); LYMPHOCYTES % (AUTO) 6.2 % (20.0-44.0); MEAN CORPUSCULAR HEMOGLOBIN 32 PG (26.0-33.0); MEAN CORPUSCULAR HGB CONC 33 g/dl (31.0-36.0); MEAN CORPUSCULAR VOLUME 96 fL (82-100); MONOCYTES # (AUTO) 1.1 /CMM (0.1-1.30); NEUTROPHILS # (AUTO) 7.1 /CMM (1.8-8.9); NEUTROPHILS % (AUTO) 79.3 % (43.0-81.0); PLATELET COUNT (AUTO) 135 /CMM (150-450); RDW COEFFICIENT OF VARIATION 15.8 (11.5-15.0); RED BLOOD CELL COUNT(AUTO) 2.66 MIL/uL (4.0-5.2); WHITE BLOOD COUNT (AUTO) 8.9 K/uL (4.3-11.0)
[2017-01-22] MEDS ORDERED: EPOETIN ALFA (10,000 UNIT) 10,000 UNIT/ML VIAL SQ ONE (10:00)
[2017-01-22 10:02] LABS: CALCIUM, SERUM 8.7 mg/dL (8.5-10.1); CREATININE 7.3 mg/dL (0.6-1.3); MAGNESIUM 1.8 mg/dL (1.8-2.4); PHOSPHORUS 3.6 mg/dL (2.5-4.9); POTASSIUM 4.3 mmol/L (3.5-5.1)
[2017-01-22] MEDS: SOD FERRIC GLUC 125 MG in IV NS 0.9% 100 ML IV SCH (18:10)
--- NOTE | 2017-01-22 19:30 | NUR ---
RN/MS NOTES: RECEIVED PT. IN BED A/O X 1 W/ GARBLED SPEECH. W/ O2 @ 2LPM VIA N/C SAT. 96 %. W/ SITTER AT BEDSIDE. HAS LCW HD INTACT . HAD HD TODAY. HAS LAC AND LFA IV INTACT W/ NO S/S OF INFECTION/INFILTRATION NOTED. NOT IN ANY ACUTE RESPIRATORY DISTRESS NOTED. CALL LIGHT W/REACH. WILL CONTINUE TO MONITOR.
[2017-01-22] MEDS: diphenhydrAMINE HCL 25 MG CAPSULE PO SCH (21:10)
[2017-01-23 04:00] VITALS: BP 116/74
[2017-01-23] MEDS: PIPERACILLIN /TAZOBACTAM 2.25 G in IV D5W 50 ML IV SCH ×3 (04:52→21:27)
[2017-01-23] MEDS: IV NS 0.9% 1,000 ML IV PRN (04:52)
[2017-01-23 06:45] LABS: BASOPHILS % (AUTO) 0.3 % (0.0-2.0); EOSINOPHILS # (AUTO) 0.2 /CMM (0.0-0.7); EOSINOPHILS % (AUTO) 2.5 % (0.0-6.0); HEMATOCRIT 26 % (33-45); HEMOGLOBIN 8.7 g/dL (11.5-14.8); LYMPHOCYTES % (AUTO) 12.9 % (20.0-44.0); MEAN CORPUSCULAR HEMOGLOBIN 33 PG (26.0-33.0); MEAN CORPUSCULAR HGB CONC 34 g/dl (31.0-36.0); MEAN CORPUSCULAR VOLUME 96 fL (82-100); MONOCYTES # (AUTO) 1.1 /CMM (0.1-1.30); MONOCYTES % (AUTO) 13.9 % (2.0-12.0); NEUTROPHILS # (AUTO) 5.4 /CMM (1.8-8.9); NEUTROPHILS % (AUTO) 70.4 % (43.0-81.0); PLATELET COUNT (AUTO) 118 /CMM (150-450); RDW COEFFICIENT OF VARIATION 15.7 (11.5-15.0); RED BLOOD CELL COUNT(AUTO) 2.69 MIL/uL (4.0-5.2); WHITE BLOOD COUNT (AUTO) 7.6 K/uL (4.3-11.0)
[2017-01-23 06:58] LABS: CALCIUM, SERUM 9.1 mg/dL (8.5-10.1); CREATININE 5.7 mg/dL (0.6-1.3); POTASSIUM 4.1 mmol/L (3.5-5.1)
--- NOTE | 2017-01-23 07:00 | NUR ---
RN NOTES: RECEIVED PT.ON BED , A/Ox1, GARBLED SPEECH , RESPIRATION EVEN AND UNLABORED, ON O2 AT 2/ N/C, NO SOB NOTED, L AC G 20, R FA G 22 AND L CW HD SITE CDI, SITTER AT THE BEDSIDE FOR SAFETY PRECAUTIONS , SR UP x3, CALL LIGHT WITHIN EASY REACH, BED LOCKED AND IN LOWEST POSITION , CONTINUE TO MONITOR CLOSELY.
[2017-01-23 08:00] VITALS: BP 123/80
[2017-01-23] MEDS: DIVALPROEX SODIUM 125 MG CAP.SPRINK PO SCH ×2 (08:23→21:27)
[2017-01-23] MEDS: VIT B CMPLX 3/FA/VIT C/BIOTIN 1 TAB TABLET PO SCH (08:23)
[2017-01-23] MEDS: risperiDONE 0.25 MG TABLET PO SCH ×2 (08:23→17:35)
[2017-01-23] MEDS: FOLIC ACID 1 MG TABLET PO SCH (08:23)
[2017-01-23] MEDS: LEVETIRACETAM (250 MG) 250 MG TABLET PO SCH ×2 (08:23→21:27)
[2017-01-23] MEDS: SEVELAMER CARBONATE 0.8 GM POWD.PACK PO SCH ×3 (08:23→17:35)
[2017-01-23] MEDS: HYDROGEL DRESSING 90 GM TUBE TP SCH (08:24)
--- NOTE | 2017-01-23 12:00 | NUR ---
RN NOTES VSS STABLE , PT RESTING WELL, CONTINUE TO MONITOR.
[2017-01-23] MEDS: SOD FERRIC GLUC 125 MG in IV NS 0.9% 100 ML IV SCH (15:00)
[2017-01-23 16:00] VITALS: BP 123/77
--- NOTE | 2017-01-23 18:00 | NUR ---
RN NOTES SPOKEN TO LENNIE REGARDING HD ORDER FOR TODAY , PT IS GOING TO HAVE HD TOMORROW PER LENNIE.
--- NOTE | 2017-01-23 18:30 | NUR ---
RN NOTES PT AT REST , SITTER AT THE BEDSIDE , NS AT 100CC/HR RUNNING VIA L AC IV SITE, LCW HD CATH CDI, NO SIGNIFICANT CHANGES NOTED ON THIS SHIFT.
--- NOTE | 2017-01-23 19:05 | NUR ---
RN OPENING NOTES RECEIVED REPORT FROM JUAN M OWEN. PATIENT A/O X1 W/ GARBLED SPEECH. BREATHING EVEN & UNLABORED, ON O2 2L VIA NC. NO RESPIRATORY DISTRESS NOTED. PULSES PRESENT. NO DISTRESS NOTED. LEFT CHEST WALL HD CATH INTACT W/ DRESSING CDI. LEFT AC IV #20 INTACT & PATENT W/ DRESSING CDI & IVF NS @ 100 ML/HR. NO S/S OF PAIN OR DISCOMFORT @ THIS TIME. SAFETY MEASURES IN PLACE W/ SIDE RAILS UP, BED LOCKED IN LOWEST POSITION, CALL LIGHT WITHIN REACH. SITTER @ BEDSIDE. WILL CONTINUE TO MONITOR.
[2017-01-23 20:00] VITALS: BP 138/84
[2017-01-23] MEDS: diphenhydrAMINE HCL 25 MG CAPSULE PO SCH (21:27)
[2017-01-24] MEDS: IV NS 0.9% 1,000 ML IV PRN ×2 (00:36→18:31)
[2017-01-24 04:00] VITALS: BP 158/68
[2017-01-24] MEDS: PIPERACILLIN /TAZOBACTAM 2.25 G in IV D5W 50 ML IV SCH ×2 (05:16→12:55)
[2017-01-24 06:40] LABS: BASOPHILS % (AUTO) 0.4 % (0.0-2.0); EOSINOPHILS # (AUTO) 0.4 /CMM (0.0-0.7); EOSINOPHILS % (AUTO) 5.9 % (0.0-6.0); HEMATOCRIT 24 % (33-45); HEMOGLOBIN 8.1 g/dL (11.5-14.8); LYMPHOCYTES # (AUTO) 1.2 /CMM (0.8-4.8); LYMPHOCYTES % (AUTO) 18.6 % (20.0-44.0); MEAN CORPUSCULAR HEMOGLOBIN 32 PG (26.0-33.0); MEAN CORPUSCULAR HGB CONC 34 g/dl (31.0-36.0); MEAN CORPUSCULAR VOLUME 96 fL (82-100); MONOCYTES # (AUTO) 0.7 /CMM (0.1-1.30); MONOCYTES % (AUTO) 10.7 % (2.0-12.0); NEUTROPHILS # (AUTO) 4.1 /CMM (1.8-8.9); NEUTROPHILS % (AUTO) 64.4 % (43.0-81.0); PLATELET COUNT (AUTO) 120 /CMM (150-450); RDW COEFFICIENT OF VARIATION 15.7 (11.5-15.0); WHITE BLOOD COUNT (AUTO) 6.4 K/uL (4.3-11.0)
[2017-01-24 07:00] LABS: CALCIUM, SERUM 8.8 mg/dL (8.5-10.1); CREATININE 6.5 mg/dL (0.6-1.3); MAGNESIUM 1.9 mg/dL (1.8-2.4); POTASSIUM 3.8 mmol/L (3.5-5.1)
[2017-01-24 08:00] VITALS: BP 118/70
[2017-01-24] MEDS: HYDROGEL DRESSING 90 GM TUBE TP SCH (08:05)
[2017-01-24] MEDS: DIVALPROEX SODIUM 125 MG CAP.SPRINK PO SCH ×2 (08:05→21:11)
[2017-01-24] MEDS: LEVETIRACETAM (250 MG) 250 MG TABLET PO SCH ×2 (08:05→21:11)
[2017-01-24] MEDS: VIT B CMPLX 3/FA/VIT C/BIOTIN 1 TAB TABLET PO SCH (08:05)
[2017-01-24] MEDS: risperiDONE 0.25 MG TABLET PO SCH ×2 (08:05→18:31)
[2017-01-24] MEDS: FOLIC ACID 1 MG TABLET PO SCH (08:05)
[2017-01-24] MEDS: SEVELAMER CARBONATE 0.8 GM POWD.PACK PO SCH ×3 (08:05→18:31)
--- NOTE | 2017-01-24 13:28 | NUR ---
RN NOTE LATOYA CHASE GAVE VERBAL ORDER TO BE DISCHARGED WITH A MIDLINE FOR CONTINUATION OF VANCOMYCIN IV AT HOME.
[2017-01-24] MEDS ORDERED: VANC1PLA9 IV (13:37)
[2017-01-24] MEDS: SOD FERRIC GLUC 125 MG in IV NS 0.9% 100 ML IV SCH (14:09)
--- NOTE | 2017-01-24 15:16 | NUR ---
RN NOTE PER DR. OBREGON, REQUESTING D/C TOMORROW BECAUSE PATIENT TO BE DIALYZED TODAY. JACKLYN KLEIN SAID OK. NURSING ANVILSMITH INFORMED PICC LINE INSERTION SPECIALIST FOR REQUEST.
[2017-01-24 16:00] VITALS: BP 126/84
[2017-01-24] MEDS ORDERED: VANCOMYCIN 1 GM in IV D5W 250 ML IV ONE (16:00)
--- NOTE | 2017-01-24 19:30 | NUR ---
RN/MS NOTES: RECEIVED PT. IN BED A/O X 1 W/ GARBLED SPEECH. W/ O2 @ 2LPM VIA N/C SAT. 96 %. W/ SITTER AT BEDSIDE. HAS LCW HD INTACT . HAD HD TODAY. HAS HARRY MID LINE IV INTACT W/ NO S/S OF INFECTION/INFILTRATION NOTED. NOT IN ANY ACUTE RESPIRATORY DISTRESS NOTED. CALL LIGHT W/REACH. WILL CONTINUE TO MONITOR.
[2017-01-24 20:00] VITALS: BP 138/80
[2017-01-24] MEDS: diphenhydrAMINE HCL 25 MG CAPSULE PO SCH (21:11)
[2017-01-25] VITALS: BP 102/54
[2017-01-25 04:00] VITALS: BP 138/99
[2017-01-25] MEDS: IV NS 0.9% 1,000 ML IV PRN (05:49)
[2017-01-25 06:54] LABS: CALCIUM, SERUM 8.9 mg/dL (8.5-10.1); CREATININE 5.5 mg/dL (0.6-1.3); POTASSIUM 4.2 mmol/L (3.5-5.1)
[2017-01-25 08:00] VITALS: BP 136/78
[2017-01-25] MEDS: LEVETIRACETAM (250 MG) 250 MG TABLET PO SCH (08:14)
[2017-01-25] MEDS: SEVELAMER CARBONATE 0.8 GM POWD.PACK PO SCH (08:14)
[2017-01-25] MEDS: DIVALPROEX SODIUM 125 MG CAP.SPRINK PO SCH (08:14)
[2017-01-25] MEDS: risperiDONE 0.25 MG TABLET PO SCH (08:14)
[2017-01-25] MEDS: FOLIC ACID 1 MG TABLET PO SCH (08:15)
[2017-01-25] MEDS: VIT B CMPLX 3/FA/VIT C/BIOTIN 1 TAB TABLET PO SCH (08:15)
[2017-01-25] MEDS: HYDROGEL DRESSING 90 GM TUBE TP SCH (09:15)
--- NOTE | 2017-01-25 13:15 | NUR ---
pt in stable condition.no s/s of distress.all m.d orders noted and carried out.discharge instructions and belongings provided to patient.patient left home with mother
== END 2017-01-25 13:21 | disposition home health service (06) | DRG 871 ==
LOC: ER 19:00 → TELE-TD 21:52 → TELE1 22:01 → MEDSG1 01-20 10:51
PROVIDERS: ADMIT Internal Medicine; ATTEND Internal Medicine
PROC: 5A1D70Z Performance of Urinary Filtration, Intermittent, Less than 6 Hours Per Day (ICD-10-PCS; principal; 2017-01-20)
PROC: 30233N1 Transfusion of Nonautologous Red Blood Cells into Peripheral Vein, Percutaneous Approach (ICD-10-PCS; 2017-01-21)
PROC: 05H533Z Insertion of Infusion Device into Right Subclavian Vein, Percutaneous Approach (ICD-10-PCS; 2017-01-24)
PROC: B546ZZA Ultrasonography of Right Subclavian Vein, Guidance (ICD-10-PCS; 2017-01-24)
DX: A41.9 Sepsis, unspecified organism (principal); J18.9 Pneumonia, unspecified organism; J96.01 Acute respiratory failure with hypoxia; E43 Unspecified severe protein-calorie malnutrition; I12.0 Hypertensive chronic kidney disease with stage 5 chronic kidney disease or end stage renal disease; G92 Toxic encephalopathy; R53.2 Functional quadriplegia; N18.6 End stage renal disease; K92.2 Gastrointestinal hemorrhage, unspecified; R13.10 Dysphagia, unspecified; Z99.2 Dependence on renal dialysis; D63.1 Anemia in chronic kidney disease; Z88.1 Allergy status to other antibiotic agents; Z91.040 Latex allergy status; Z91.018 Allergy to other foods; Z87.01 Personal history of pneumonia (recurrent); Z79.899 Other long term (current) drug therapy; E03.9 Hypothyroidism, unspecified; G80.9 Cerebral palsy, unspecified; F09 Unspecified mental disorder due to known physiological condition; E87.5 Hyperkalemia; F79 Unspecified intellectual disabilities; B95.61 Methicillin susceptible Staphylococcus aureus infection as the cause of diseases classified elsewhere; D50.9 Iron deficiency anemia, unspecified
CPT/HCPCS: 36415; 36569; 71010-TC; 80048-TC; 80076-TC; 80202-TC; 83540-TC; 83605-TC; 83735-TC; 84100-TC; 84484-TC; 85025-TC; 85027-TC; 85730-TC; 86850-TC; 86921-TC; 87040-TC; 87070-TC; 87081-TC; 90935-TC; 92526; 92611-TC; 93307-TC; A4606; A6248; J0885; J2543; J2916; J3370; J7030; J7040; J7050; J7060; P9016-BL; Q0163; Z7610